=== PATIENT | female | born 1960 | race Hispanic/Latino ===

== ENCOUNTER → 2018-12-22 | Day surgery (SDC) | payer SELFPAY ==
[~2018-12-22] MED LIST: EPOETIN ALFA 10,000 UNIT/ML ONE
--- OUTSIDE RECORDS SUMMARY | 2018-12-22 09:10 | XMS REPORT ---
:1960 [facility] Address [address] [place] [address] Dr. Dalton [address] [place] [id number] Care Team Providers Name Role Phone Unavailable Unavailable Unavailable Problems This patient has no known problems. Allergies, Adverse Reactions, Alerts This patient has no known allergies or adverse reactions. Medications This patient has no known medications.
[2018-12-22 10:47] LABS: Ferritin 101.3 ng/mL (8-388); Folic Acid, (Folate) 8.8 ng/mL (3.1-17.5); Transferrin 178 mg/dL (200-360)
== END ==
LOC: DS 09:04
PROVIDERS: ATTEND Internal Medicine Nephrology
DX: N18.9 Chronic kidney disease, unspecified (principal); D63.1 Anemia in chronic kidney disease
CPT/HCPCS: 36415; 82607; 82728; 82746; 83540; 84466; 85014; 85018; 96372; J0885

== ENCOUNTER → 2019-02-16 | Day surgery (SDC) | payer SELFPAY ==
[~2019-02-16] MED LIST changes: +SOD FERRIC GLUC COMPLX/SUCROSE 250 MG in NA CHLORIDE 0.9% 250 ML IV ONE
--- OUTSIDE RECORDS SUMMARY | 2019-02-16 08:26 | XMS REPORT ---
:1960 [facility] Address [address] [place] [address] Dr. Dalton [address] [place] [id number] Care Team Providers Name Role Phone Unavailable Unavailable Unavailable Problems This patient has no known problems. Allergies, Adverse Reactions, Alerts This patient has no known allergies or adverse reactions. Medications This patient has no known medications.
[2019-02-16 08:41] LABS: Hematocrit 23.5 % (36.0-45.0)
== END ==
LOC: DS 08:00
PROVIDERS: ATTEND Internal Medicine Nephrology
DX: N18.9 Chronic kidney disease, unspecified (principal); D63.1 Anemia in chronic kidney disease
CPT/HCPCS: 36415; 85014; 85018; 96372; J0885; J2916

== ENCOUNTER 2021-01-29 10:06 | Emergency (ER) | payer OTHER ==
--- OUTSIDE RECORDS SUMMARY | 2021-01-29 10:10 | XMS REPORT | Continuity of Care Document ---
:1960 Author Organization [facility] t Address [address] [place] [address] Dr. Small. [address] [place] [address] Care Team Providers Name Role Phone Asked, Pcp Primary Care Physician Unavailable Jonathon MANNING Attending Clinician Unavailable Taylor RICCI Attending Clinician Colton WEBER Attending Clinician Sea Valladares DO Attending Clinician Jamir Gongora MD Attending Clinician Purvi WEBER V. Attending Clinician Provider Attending Clinician Unavailable Lamberto Ewing MD Attending Clinician David WEBER Attending Clinician COLTON Admitting Clinician Unavailable Payers Payer Name Policy Type Policy Effective Date Expiration Date Sour ce Number MEDICAREMEDICARE PART [id number] 2019 Jacobo Bhat AND 00:00:00 Yarsani [id number] 2018 [place] [facility]NA [facility] [id number] 2019 [place] [id number] 00:00:00 Met wallace 10[facility] Condition Condition Condition Status Onset Resolution Last Treating Co mments Source Name Details Category Date Date Treatment Clinician Date Esophageal Esophageal Disease Active 2019-10 [place] dysphagia dysphagia 0-26 Meth royal 00:00: st 00 Acute on Acute on Disease Active 2019-10 [place] chronic chronic 0-20 Methodi heart heart 00:00: st failure failure 00 with with preserved preserved ejection ejection fraction fraction (HFpEF) (HFpEF) ESRD (end ESRD (end Disease Active 2019-10 Nabeel torres stage stage 0-20 Methodi renal renal 00:00: st disease) disease) 00 HTN HTN Disease Active 2019-10 [place] (hypertens (hypertens 0-20 Me thodi ion) ion) 00:00: st 00 CHF CHF Disease Active 2019-10 [place] exacerbati exacerbati 0-20 Me thodi on on 00:00: st 00 Allergies, Adverse Reactions, Alerts Allergy Allergy Status Severity Reaction(s) Onset Inactive Treating Comm ents Source Name Type Date Date Clinician Lisinopr Propensi Active Hives 2019-10 [place] ty to 0-20 Methodi adverse 00:00: st reaction 00 s to drug Sulfa Propensi Active Other (See 2019-10 Patient Nabeel torres (Sulfona ty to Comments) 0-20 stated Metho di mide adverse 00:00: makes her st Antibiot reaction 00 really ics) s to sick drug Social History Social Habit Start Date Stop Date Quantity Comments Source Tobacco use and 2020-07-30 2020-07-30 Never used Rafal Rodriguez ethodist exposure 00:00:00 00:00:00 Alcohol intake 2020-07-30 2020-07-30 Current drinker Oscar on Yarsani 00:00:00 00:00:00 of alcohol (finding) Alcohol Comment 2020-07-29 2020-07-29 very little [place] Yarsani 00:00:00 00:00:00 Sex Ass[birth year] At [birth year] [facility] curlyodist 00:00:00 00:00:00 Smoking Status Start Date Stop Date Source Never smoker [place] Methodis t Medications Ordered Filled Start Stop Current Ordering Indication Dosage Frequency Signature Comments Components Source Medication Medication Date Date Medication? Clinician (SIG) Name Name amLODIPine 2019-10 Yes 10mg QD Take 10 mg [place] (NORVASC) 1-05 by mouth Method i 10 mg 14:04: daily. st tablet 21 calcium 2019-10 Yes 667mg Q.[id number] Take 667 [place] acetate,gavin 1-05 [id number] mg by M ethodi sphat bind, 14:04: 3D mouth 3 st (PHOSLO) 21 (three) 667 mg times a capsule day with meals. Replaced by Renvela furosemide 2019-10 Yes 80mg Q.5D Take 80 mg [place] (LASIX) 80 1-05 by mouth 2 Met hodi mg tablet 14:04: (two) st 21 times a day. metoprolol 2019-10 Yes 25mg Q.5D Take 25 mg [place] tartrate 1-05 by mouth 2 Metho di (LOPRESSOR) 14:04: (two) st 50 mg 21 times a tablet day. gabapentin 2019-10 Yes 100mg Q24H Take 100 [place] (NEURONTIN) 1-05 mg by Methodi 100 mg 14:04: mouth st capsule 21 daily as needed. aspirin 2019-10 Yes 81mg QD Take 81 mg [place] (ECOTRIN) 1-05 by mouth Method i 81 MG 14:04: daily. st enteric 21 coated tablet doxazosin 2019-10 Yes 4mg Q.5D Take 4 mg Nabeel ston (CARDURA) 4 1-05 by mouth 2 Me thodi MG tablet 14:04: (two) st 21 times a day. glimepiride 2019-10- No 1mg QD Take 1 Nabeel ston (AMARYL) 1 0- tablet (1 Met hodi MG tablet 00:00: 23:59 mg total) st 00 :00 by mouth daily with breakfast for 30 days. midodrine 2019-10- No 5mg Q.[id number] Take 1 [place] (PROAMATINE 0-31 - [id number] tablet (5 Methodi ) 5 MG 00:00: 23:59 3W mg total) st tablet 00 :00 by mouth 3 (three) times a week for 30 days. pantoprazol 2019-10 2020- No 40mg QD Take 1 Nabeel ston e 0-31 - tablet (40 Methodi (PROTONIX) 00:00: 23:59 mg total) s t 40 MG EC 00 :00 by mouth tablet daily for 30 days. atorvastati 2019-10 2020- No 40mg QD Take 1 Nabeel ston n (LIPITOR) 0-30 -29 tablet (40 M ethodi 40 mg 00:00: 23:59 mg total) st tablet 00 :00 by mouth nightly for 30 days. sevelamer 2019-10 2020- No 800mg Q.00507824 Take 1 [place] (RENVELA) 08-31 [id number] tablet M ethodi 800 mg 00:00: 23:59 3D ([address] tablet 00 :00 total) by mouth 3 (three) times a day with meals for 30 days. Vital Signs Vital Name Observation Time Observation Value Comments Source Heart rate 2020-08-01 15:47:00 75 /min Rafal Torres Respiratory rate 2020-08-01 15:47:00 18 /min Diane Torres Oxygen saturation in 2020-08-01 15:47:00 100 /min Rafal Torres Arterial blood by Pulse oximetry Systolic blood 2020-08-01 11:42:50 151 mm[Hg] Dianeto n Yarsani pressure Diastolic blood 2020-08-01 11:42:50 63 mm[Hg] Oscar on Yarsani pressure Body temperature 2020-08-01 11:42:50 37.28 Thalia Diane ton Yarsani Body weight 2020-08-01 05:21:26 75.206 kg Rafal Torres BMI 2020-08-01 05:21:26 27.59 kg/m2 Rafal Torres Body height 2020-07-24 08:16:00 165.1 cm Rafal Torres Procedures Procedure Date / Time Performing Source Performed Clinician POC GLUCOSE 2020-08-01 Jacquelyn Sawyer [place] 11:43:00 Sea Torres POC GLUCOSE 2020-08-01 Jacquelyn Sawyer [place] 07:23:00 Sea Torres BASIC METABOLIC PANEL 2020-08-01 Jacquelyn Sawyer [place] 02:55:00 Sea Torres ESTIMATED GFR 2020-08-01 Jacquelyn Sawyer [place] 02:55:00 Sea Torres POC GLUCOSE 2020-07-31 Sawyer Valladares [place] 17:23:00 Sea Torres HEMOGLOBIN A1C 2020-07-31 Jacquelyn Sawyer [place] 16:17:00 Sea Torres POC GLUCOSE 2020-07-31 Jacquelyn Sawyer [place] 11:56:00 Sea Torres POC GLUCOSE 2020-07-31 Jacquelyn Sawyer [place] 09:12:00 Sea Torres POC GLUCOSE 2020-07-30 Jacquelyn Sawyer [place] 21:01:00 Sea Torres POC GLUCOSE 2020-07-30 Jacquelyn Sawyer [place] 18:26:00 Sea Torres HEMODIALYSIS 2020-07-30 Zack Hamilton [place] 15:18:35 Yarsani NM GASTRIC EMPTYING 2020-07-30 TroyFannie [place] 14:10:01 Elizabeth R Yarsani POC GL[facility]COSE [facility]30 [facility] [place] 12[facility]32:00 Sea Yarsani XR CHEST 1 VW 2020-07-30 Sawyer Valladares [place] 09:09:08 Seawashington Torres US THORACENTESIS WITH IMAGING 2020-07-30 DevineSergio [place] 09:07:46 A. Yarsani CYTOLOGY (NON-GYNECOLOGICAL) 2020-07-30 Sawyer Valladares Nabeel ston REQUEST 08:45:00 Sea Yarsani BASIC METABOLIC PANEL 2020-07-30 [facility] [place] 04:54:00 Sea Yarsani ESTIMATED GFR 2020-07-30 [facility] [place] 04:54:00 Sea Yarsani POC GLUCOSE 2020-07-29 [facility], [facility] 21:00:00 Sea Yarsani POC GLUCOSE 2020-07-29 [facility] 17:55:00 Sea Yarsani POC GLUCOSE 2020-07-29 [facility] 14:52:00 Sea Yarsani SURGICAL PATHOLOGY REQUEST 2020-07-29 [facility]iaSawyer [facility] 14:22:00 Sea Yarsani POC GLUCOSE 2020-07-29 [facility] 14:02:00 Sea Yarsani ESOPHAGOGASTRODUODENOSCOPY (EGD) 2020-07-29 Prem Loja V. [place] 13:26:00 Yarsani POC PANEL 2020-07-29 [facility] [place] 13:21:00 Sea Yarsani POC GLUCOSE 2020-07-29 [facility] 09:07:00 Sea Yarsani BASIC METABOLIC PANEL 2020-07-29 [facility] 05:40:00 Yarsani ESTIMATED GFR 2020-07-[address] [facility] 05:40:00 Yarsani HC COMPLETE BLD COUNT W/AUTO DIFF 2020-07-29 Zully Nichole Ed [facility] 05:20:00 Yarsani POC GLUCOSE 2020-07-28 Lorna Segura [place] 21:19:00 Yarsani POC GLUCOSE 2020-07-28 Lorna Segura [place] 18:12:[address] CHEST WO CONTRAST 2020-07-28 Sergio Devine [place] 12:53:09 A. Yarsani POC GLUCOSE 2020-07-28 Lorna Seugra [place] 11:46:00 Yarsani HEMODIALYSIS 2020-07-28 Zack Hamilton [place] 09:31:26 Yarsani HC COMPLETE BLD COUNT W/AUTO DIFF 2020-07-28 [facility] 05:30:00 Yarsani BASIC METABOLIC PANEL 2020-07-28 [facility] 04:00:00 Yarsani ESTIMATED GFR 2020-07-28 [facility] 04:00:00 Yarsani POC GLUCOSE 2020-07-27 [facility] 21:26:00 Sea Yarsani POC GLUCOSE 2020-07-27 [facility] 17:30:00 Sea Yarsani [employer] CULTURE 2020-07-27 [facility] 15:46:00 A. Yarsani FUNGUS CULTURE 2020-07-27 [facility] 15:46:00 A. Yarsani CYTOLOGY (NON-GYNECOLOGICAL) 2020-07-27 Lorna Segurau ston REQUEST 15:42:00 Yarsani XR CHEST 1 VW 2020-07-27 Orlin Obrien [place] 14:55:00 Iftikhar Yarsani US THORACENTESIS WITH IMAGING 2020-07-27 [facility] 14:47:50 A. Yarsani GLUCOSE LEVEL, MISC FLUID 2020-07-27 [facility] ton 14:46:00 A. Yarsani LDH, MISC FLUID 2020-07-27 [facility] 14:46:00 A. Yarsani PROTEIN, MISC FLUID 2020-07-27 [facility] 14:46:00 A. Yarsani AEROBIC CULTURE 2020-07-27 [facility] 14:46:00 A. Yarsani ANAEROBIC CULTURE 2020-07-27 [facility] 14:46:00 [employer]. [employer] STAIN 2020-07-27 [facility] 14:46:00 A. Yarsani GRAM STAIN 2020-07-27 [facility] 14:46:00 A. Yarsani POC GLUCOSE 2020-07-27 [facility] 12:12:00 Sea Yarsani POC GLUCOSE 2020-07-27 [facility] 07:43:00 Sea Yarsani BASIC METABOLIC PANEL 2020-07-27 [facility] 03:11:00 Yarsani ESTIMATED GFR 2020-07-27 Ruocco, Dulce [place] 03:11:00 Yarsani HC COMPLETE BLD COUNT W/AUTO DIFF 2020-07-27 Ruocco, Dulce [place] 02:55:00 Yarsani POC GLUCOSE 2020-07-26 McCkameron, Sawyer [place] 21:04:00 Sea Yarsani POC GLUCOSE 2020-07-26 McCkameron, Sawyer [place] 17:54:00 Sea Yarsani XR CHEST 1 VW PORTABLE 2020-07-26 Ruocco, Dulce [place] 16:45:10 Yarsani POC GLUCOSE 2020-07-26 McCartan, Sawyer [place] 12:55:00 Sea Yarsani POC GLUCOSE 2020-07-26 McCartan, Sawyer [place] 08:42:00 Sea Yarsani POC GLUCOSE 2020-07-26 McCartan, Sawyer [place] 07:45:00 Sea Yarsani BASIC METABOLIC PANEL 2020-07-26 Ruocco, Dulce [place] 03:05:00 Yarsani PHOSPHORUS LEVEL 2020-07-26 Alfonso, Zack Carter [place] 03:05:00 Yarsani ESTIMATED GFR 2020-07-26 Ruocco, Dulce [place] 03:05:00 Yarsani HC COMPLETE BLD COUNT W/AUTO DIFF 2020-07-26 Ruocco, Dulce [place] 02:48:00 Yarsani POC GLUCOSE 2020-07-25 McCkameron, Sawyer [place] 17:49:00 Sea Yarsani HEMODIALYSIS 2020-07-25 Alfonso, Zack Carter [place] 16:50:39 Yarsani FL ESOPHAGRAM SINGLE CONTRAST 2020-07-25 Jacobo Whitten 15:16:58 Megha Kennedy Yarsani POC GLUCOSE 2020-07-25 McCkameron, Sawyer [place] 11:56:00 Sea Yarsani POC GLUCOSE 2020-07-25 McCartan, Sawyer [place] 07:23:00 Sea Yarsani BASIC METABOLIC PANEL 2020-07-25 [facility]u [facility], Sawyer [place] 03:33:00 Sea Yarsani ESTIMATED GFR 2020-07-25 Sylwiaartan, Sawyer [place] 03:33:00 Sea Yarsani POC GLUCOSE 2020-07-24 McCartan, Sawyer [place] 21:15:00 Sea Yarsani POC GLUCOSE 2020-07-24 McCkameron, Sawyer [place] 17:39:00 Sea Yarsani POC GLUCOSE 2020-07-24 McCartan, Sawyer [place] 12:09:00 Sea Yarsani CV STRESS TEST NUCLEAR CARDIO 2020-07-24 PapiAdriana gamble 10:34:38 Lamberto Torres NM MYOCARDIAL PERFUSION STRESS 2020-07-24 Papi Adriana Anisa ren ONLY 10:34:38 Lamberto Torres POC GLUCOSE 2020-07-24 Sawyer Valladares [place] 07:48:00 Sea Yarsani HEMODIALYSIS 2020-07-24 Alfonso, Zack Raul [place] 07:21:50 Yarsani HC COMPLETE BLD COUNT W/AUTO DIFF 2020-07-24 Sylwianyu [facility] [place] 04:40:00 Sea Yarsani BASIC METABOLIC PANEL 2020-07-24 [facility], Sawyer [place] 04:00:00 Sea Yarsani ESTIMATED GFR 2020-07-24 [facility], [facility] 04:00:00 Sea Yarsani POC GLUCOSE 2020-07-23 [facility], [facility] 20:42:00 Sea Yarsani POC GLUCOSE 2020-07-23 [facility], [facility] 17:54:00 Sea Yarsani HEPATITIS B SURFACE ANTIGEN 2020-07-23 Alfonso, Zack mcclure 13:30:00 Yarsani POC GLUCOSE 2020-07-23 [facility], Sawyer [place] 12:00:00 Sea Yarsani [employer] C[employer]URE 2020-07-23 Ellison, Radha [place] 10:40:00 Yarsani FUNGUS CULTURE 2020-07-23 Ellison, Radha [place] 10:40:00 Yarsani XR CHEST 1 VW 2020-07-23 Sim, Nichole [place] 10:30:00 Neelima Yarsani US THORACENTESIS WITH IMAGING 2020-07-23 Ellison, Radha [facility] 10:11:00 Yarsani ANAEROBIC CULTURE 2020-07-23 Ellison, Radha [place] 09:40:00 Yarsani AEROBIC CULTURE 2020-07-23 Ellison, Radha [place] 09:40:00 Yarsani [employer] STAIN 2020-07-23 Ellison, Radha [place] 09:40:00 Yarsani FUNGUS SMEAR 2020-07-23 Ellison, Radha [place] 09:40:00 Yarsani ULTRAFILTRATION 2020-07-23 Alfonso, Zack Carter [place] 09:22:41 Yarsani HC COMPLETE BLD COUNT W/AUTO DIFF 2020-07-23 Zonia Ratliff [place] 04:50:00 Samantha Yarsani BASIC METABOLIC PANEL 2020-07-23 Yen Ratliff [place] 04:00:00 Samantha Torres MAGNESIUM LEVEL 2020-07-23 Yen Ratliff [place] 04:00:00 Samantha Torres ESTIMATED GFR 2020-07-23 Yen Ratliff [place] 04:00:00 Samantha Torres POC GLUCOSE 2020-07[facility] 21:34:00 Yarsani ECG 12-LEAD 2020-07-22 EllisonRadha wong [place] 19:23:38 Yarsani ALT (SGPT) 2020-07-22 [facility] 18:47:00 Yarsani ALKALINE PHOSPHATASE 2020-07-22 [facility] 18:47:00 Yarsani POTASSIUM LEVEL 2020-07-22 [facility] 18:47:00 Yarsani AST (SGOT) 2020-07-22 [facility] 18:47:00 Yarsani XR CHEST 1 VW PORTABLE 2020-07-22 [facility] 18:01:00 Yarsani POC GLUCOSE 2020-07-22 [facility] 17:42:00 Yarsani COVID-19 QUALITATIVE PCR 2020-07-22 [facility] [place] 17:01:00 Sea Yarsani HC COMPLETE BLD COUNT W/AUTO DIFF 2020-07-22 EllisonRadha [place] 17:00:00 Yarsani COMPREHENSIVE METABOLIC PANEL 2020-07-22 [facility] 17:00:00 Yarsani PROTHROMBIN TIME WITH INR 2020-07-22 [facility] 17:00:00 Yarsani ESTIMATED GFR 2020-07-22 EllisonRadha wong [place] 17:00:00 Yarsani B NATRIURETIC PEPTIDE 2020-07-22 EllisonRadha wong [place] 17:00:00 Yarsani Plan of Care Planned Activity Planned Date Details Comments Source Future Scheduled 2023-07-30 Screening for [facility] thodist Test 00:00:00 malignant neoplasm of cervix (procedure) [code = 451651086] Future Scheduled 2021-05-03 INFLUENZA VACCINE Temo pagan Yarsani Test 00:00:00 [code = INFLUENZA VACCINE] Future Scheduled 2010 BREAST CANCER [place] Me thodist Test 00:00:00 SCREENING [code = BREAST CANCER SCREENING] Future Scheduled 2010 COLONOSCOPY SCREENING [place] Yarsani Test 00:00:00 [code = COLONOSCOPY SCREENING] Future Scheduled 2010 SHINGLES VACCINES [place] Yarsani Test 00:00:00 (#1) [code = SHINGLES VACCINES (#1)] Future Scheduled 1978 Hepatitis C screening [place] Yarsani Test 00:00:00 (procedure) [code = 754070955] Future Scheduled 1976 COVID-19 VACCINE (1) Nabeel ston Yarsani Test 00:00:00 [code = COVID-19 VACCINE (1)] Future Scheduled 1970 DIABETES: RETINAL EYE [place] Yarsani Test 00:00:00 EXAM [code = DIABETES: RETINAL EYE EXAM] Future Scheduled 1970 DIABETIC FOOT EXAM [place] Yarsani Test 00:00:00 [code = DIABETIC FOOT EXAM] Encounters Start End Encounter Admission Attending Care Care Encounter Source Date/Time Date/Time Type Type Clinicians Facility Department ID 2020-08-07 2020-08-07 Outpatient DELAFLOR-SA [facility] [id number] [place] 00:00:00 00:00:00 NTAANA, 542 Method i CRISTÓBAL 2020-07-22 2020-08-01 Inpatient MCCARTAN, [facility] [id number] [place] 00:00:00 00:00:[address] 2020-04-24 2020-04-24 Office David [facility] [id number] 13:04:48 13:52:13 Visit Elva Paez [id number] Yue [id number] Annalee [id number] [address] Results Test Description Test Time Test Comments Results Result Sourc e Comments US [facility] Results Metho dist 17:16:54 - 07/30/2020 5:20 PM CDT EXAMINATION : US THORACENTESIS WITH IMAGINGCLINICAL HISTORY: Pleural fluidCOMPARISON:Thor acentesis ultrasound dated 07/27/2020TECHNIQUE: The procedure's risks, benefits, and alternatives were discussed with the patient and written, informed consent was obtained.Using ultrasound guidance, the right pleural effusion was localized and the overlying posterior chest was prepped and draped in the usual sterile fashion. 1% buffered lidocaine was used for local anesthesia. A 5 Lao One-step catheter was inserted into the pleural space and 1.1 L of pleural fluid was removed. Post procedure images reveal a small residual effusion. The patient tolerated the procedure without difficulty and was discharged to the radiology recovery area for postprocedure chest x-ray prior to discharge.EBL: None. COMPLICATIONS: None.SPECIMENS: As above.Attending: Dr. Caesar Alva IMPRESSION:Technical ly successful ultrasound-guided right-sided therapeutic thoracentesis.[facility]-2U [id number] and approved by surgeon/president/fellow: Jonathan Theodore M.D.I, Caesar Alva M.D., personally reviewed the images and resident's/fellow's findings and agree with the final report. Cytology (non-gynecological) request 2020-07-30 17:07:31 Test Item Value Reference Range Interpretation Comme nts Case number (test code = [id number]) [id number] Cytology (non-gynecological) report See link below for PDF Lab Repo rt (test code = 1178) Result status (test code = 6244805) This is Final Report for [id number] [facility] Gastric [id number] 16:40:51Hm Interface, Radiology Results 07/30/2020 4:43 PM CDTFormatting of this note might be di fferent from the original.PROCEDURE: NM GASTRIC EMPTYINGINDICATION: suspected gastroparesis. TECHNIQUE: 0.5 millicuries of [id number] colloid were mixed with an egg and cooked. The egg was fed to the patient and dynamic imaging of the abdomen in the anterior and posterior projections was performedfor 90 minutes. Quantification of gastric emptying was performed using the geometric mean of the anterior and posterior projections. Delayed imaging at 4 hours was also performed. FINDINGS: The half-time of emptying is greater than 1000 minutes. Normal is 45 to 100 minutes. There is greater than 75% gastric retention on delayed 4 hour images. IMPRESSION: Markedly delayed gastric emptying, compatible with gastroparesis.[facility]-[id number] and approved by surgeon/president/fellow: Pato Love M.D.I, Jose De Dios MD, personally reviewed the images and resident's/fellow's findings and agree with the final report.[facility] [id number] 13:21:04 Test Item Value Reference Range Interpretation Comments Case number (test code = [id number]) Surgical pathology See link below for report (test code = PDF Lab Report [id number]) Result status (test code This is Final Report = [id number]) for [id number] [place] MethodistXR Chest 1 [id number] 09:11:50Hm Interface, Radiology Results - 07/30/2020 9:14 AM CDT EXAMINATION: XR CHEST 1 VWCLINICAL HISTORY: post thoraCOMPARISON: 07/27/2020IMPRESSION:A frontal radiograph of the chest is reviewed. The cardiomediastinal silhouette is unchanged. A small right-sided pleural effusion has diminished in size following right-sided thoracentesis with improved aeration in the right perihilar region and right lung base. No pneumothorax is present. Left lung remains clear. A right chest tunneled dialysis catheter is unchanged.[id number] MethodistCT Chest Wo [id number] 13:40:17Hm Interface, Radiology Results - 07/28/2020 1:43 PM CDT EXAMINATION: CT CHEST WO CONTRASTCLINICAL HISTORY: plerual fluid trapped lungTECHNIQUE: Axial images of the chest were obtained without intravenous contrast. The lack of intravenous contrast reduces the sensitivity of the exam and evaluating vasculature. CT imaging was performed with iterative reconstruction technique and/or automated exposure control to reduce radiation dose.COMPARISON: Limited comparison with chest radiograph performed July 27, 2020FINDINGS:Lungsand airways: A 10 mm solid noncalcified pulmonary nodule is present in the right lower lobe (image 74 series 2). Multifocal atelectasis, greatest in the peripheral and basilar right lung. Difficult to exclude a component of airspace disease in the right lung base. Pleura: Moderate, partially loculatedright pleural effusion. Trace posterior left pleural fluid.Mediastinum and lymph nodes: No lymphadenopathy. Cardiovascular: Right jugular approach venous catheter tip terminates in the right atrium. Heavy coronary artery and additional scattered vascular calcifications, including aortic valve leaflet calcifications. The main pulmonary artery is dilated to 3.9 cm. Left heart chambers are mildly enlarged.Upper abdomen: Colonic diverticula.Musculoskeletal: Scattered degenerative osseous changes. Deminer alized bones.IMPRESSION:1.There is an indeterminate solid noncalcified pulmonary nodule measuring 10mm in the right lower lobe. Recommend PET/CT, tissue sampling, or repeat chest CT in 3 months.2.Moderate, partially loculated right pleural effusion with adjacent atelectasis. It is difficult to exclude a component of superimposed aspiration/pneumonia in the right lung base.3.Heavy coronary artery andadditional scattered vascular calcifications.4.Dilated main pulmonary artery (3.9 cm), which can be seen in but is not specific for pulmonary hypertension.[id number]-[id number] MethodistXR Chest 1 Vw Portable 2020-07-26 20:30:37Hm Interface, Radiology Results 07/26/2020 8:33 PM CDT XR CHEST 1 VW PORTABLECLINICAL INDICATION: Pleural effusionCOMPARISON: IMPRESSION:The heart is mildly enlarged and mediastinal contours appear stable. A right dialysis catheter is present with tips projecting over the right atrium. Elevation of the right hemidiaphragm/volume loss is noted as before with a now small to moderate right-sided pleural effusion with basilar atelectasis. The effusion has decreased in the interval. Left lung is clear. Bones are unchanged.*[facility]-[id number] MethodistFL Esophagram Single Contrast 2020-07-25 15:23:52Hm Interface, Radiology Results 07/25/2020 3:26 PM CDT EXAMINATION: FL ESOPHAGRAM SINGLE CONTRASTCLINICAL HISTORY: Dysphagia known causeCOMPARISON: None.Fluoroscopy time: Less than 1 minute. Dose equals 3 mGyFINDINGS: Marked decrease in esophageal motility was noted. Tertiary contractions involving the lower thoracic esophagus were present. There was no evidence of hiatal hernia noted during the course of study. There was noevidence of reflux noted during the course of study.IMPRESSION:Decreased esophageal motility.[id number] nursery for blind babies MethodistCv stress [id number] 07:51:03 Test Item Value Reference Range Interpretation Comments Resting HR (test code 68 = [id number]) Resting BP (test code 143&65 = [id number]) Peak MET Achieved 1 (test code = [id number]) Protocol Name (test REGADENO code = 8218944773) Time in Exercise 00:01:00 Phase (test code = 7300921251) Max Systolic BP (test 143 code = 5843663551) Max Diastolic BP 65 (test code = 6942521020) Max Heart Rate (test 77 code = 7948178718) Max Predicted Heart 161 Rate (test code = 2870601840) Target HR Formula (220 - Age)*100% (test code = 6944236008) Test Indication (test CAD RISK,HIGH code = 9125535580) ASYMPTOMATIC Arrhy During Ex (test code = 4115128786) ECG Interp Before EX (test code = 9733873492) ECG Interp During Ex (test code = 7988417082) Ex Summary Comment (test code = 1202202799) Overall HR Response to Exercise (test code = 8038959607) Overall BP Response To Exercise (test code = 8147015849) Reason for Protocol Complete Termination (test code = 2204952572) Stress Test Waveform interpreted in Impression (test code report associated with = 8277665154) image study. No interpretation is provided as part of this Stress ECG report.-- [facility] myocardial [id number] 11:49:00Interface, Radiology Results In - 07/24/2020 11:50 AM CDTFormatting of this note might be different f rom the original. [facility] Heart & Vascular Nuclear Cardiology Department [address] [place] [address] Myocardial Perfusion Imaging Report Pat.Name: SUZANNE MAIER Sunita.ID: [id number] St.Date: 07/24/2020 Refer.MD: ADRIANA EWING MD Exam Time: 8:54:00 AM Study Type:Myocardial Perfusion ImagingHeight: 65in Weight: 170lb BSA: 1.85 m2 Age: 11 1960,59Y Sex: FEMALE BP: 143/65 HR: 67 bpm Nuclear Tech:Debbie Collins [facility],JUNITO/Vignesh Villalta [facility], ARRTPat. Stat.:Inpatient Room: D 914A Tape Vol: 29.17, Nuclear Event ID:[id number] Order ID: [id number] Reason for Study:CAD risk, High, AsymptomaticHistory / Clinical:Congestive heart failure, Diabetes, Family historyCAD, Hypertension, Renal insufficiency/failure, DVT, Recent rightpleural effusion, Thoracentesis - 07/23/20, Peripheral vascular stentin leg (2017)Procedures: Low Dose Stress Only Single-Photon Emission ComputedTomographyRisk Factors:Diabetes, Hypertension, Family history of cardiovasculardiseaseClinical Symptoms:Regadenoson 0.4 mg administered intravenously over10 secondsPhysical Exam:S1, S2 ----SUMMARY: SCINTIGRAPHIC RESULTSPerfusion Defect Size (% LV) 0 % Total 0 % Ischemia 0 % ScarLeft Ventricular Perfusion ResultsThere is normal tracer distribution throughout the myocardium duringstress. Gated SPECT ResultsThe post-stress left ventricular ejection fra ction is 66 % with normalregional wall motion and left ventricular thickening. Leftventricular end-diastolic volume is 92 ml; end-systolic volume is 31ml. The left ventricle is of normal size at stress. ConclusionNormal regadenoson Tc-99m tetrofosmin myocardial perfusion study. Theleft ventricular ejection fraction is normal. __ CommentsPatients with a normal stress myocardial perfusion study have a low (<1%) annual risk of cardiac or nonfatal myocardial infarction. Study Quality/ArtifactsThe study quality is good.The mild reduction in anteroapical wallcounts is probably due to breastattenuation artifact rather thancoronary artery disease. Comparison to Previous StudyNone available. FINDINGS: STRESS: Baseline Vital Signs: Intervention Regadenoson 0.4mg/5mlIV over 10 seconds followed by radiotracer injection and 5ml salineflushBaseline EKG Normal Sinus Rhythm, First degree AV blockResting HR: 67 Atropine Administered: 0Resting BP: 143/65 Stress Test Results:Target HR: 137 Symptoms and Complications:Stress-induced Arrhythmias NoneReason for Stopping Test: As per Regadenoson protocolSymptoms During Test Shortness of breath, Chest heavinessComplications NoneOther:Normal heart rate response to pharmacological stress,Normal blood pressure response to pharmacological stressECG / Stress Interpretation: No ischemic ST segment change occurredwith stress.Signed 07/24/2020 11:49 Mich Fischer [facility] 12 lead 2020-07-23 23:31:48 Test Item Value Reference Range Interpretation Comments Ventricular rate (test 79 code = 253) Atrial rate (test code = 79 255) KS interval (test code = 200 266) QRSD interval (test code 82 = 260) QT interval (test code = 384 264) QTC interval (test code 440 = 265) QRS axis 1 (test code = 20 268) T wave axis (test code = 99 270) EKG impression (test Normal sinus code = 273) rhythm-Cannot rule out Anterior infarct , age undetermined-Abnormal ECG-No previous ECGs available-Electronica lly Signed By Diana Kelly ([id number]) on 07/23/2020 11:31:41 PM Rafal Torres
--- NOTE | 2021-01-29 10:32 | EDPHYS ---
Physician Documentation [facility] Name: Enma Bolden Age: 60 yrs Sex: Female : 1960 Arrival Date: 01/29/2021 Time: 10:08 Bed 5 Private MD: ED Physician Nicolas Tolliver HPI: 01/29 11:25 This 60 yrs old Female presents to ER via Ambulatory with complaints of kb Dialysis Catheter Problem. 11:25 The patient has a dialysis catheter in the right subclavian area. Type of problem: kb broken clamp. Onset: The symptoms/episode began/occurred this morning. The malfunction was discovered at the dialysis center. Dialysis schedule: . Associated signs and symptoms: Pertinent positives: None. The patient has not experienced similar symptoms in the past. The patient has not recently seen a physician. Pt reports she completed dialysis and when they were getting her ready to leave one of the clamps on her catheter broke.. Historical: - Allergies: 10:21 Sulfa (Sulfonamide Antibiotics); ss 10:21 Lisinopril; ss - PMHx: 10:21 Dialysis; ss - Immunization history:: Adult Immunizations up to date. - Social history:: Smoking status: Patient denies any tobacco usage or history of. ROS: 11:24 Constitutional: Negative for fever, chills, and weight loss, Cardiovascular: Negative kb for chest pain, palpitations, and edema, Respiratory: Negative for shortness of breath, cough, wheezing, and pleuritic chest pain, MS/Extremity: Negative for injury and deformity, Skin: Negative for injury, rash, and discoloration, Neuro: Negative for headache, weakness, numbness, tingling, and seizure. Exam: 11:24 Constitutional: This is a well developed, well nourished patient who is awake, alert, kb and in no acute distress. Head/Face: Normocephalic, atraumatic. Respiratory: Respirations even and unlabored. No increased work of breathing, no retractions or nasal flaring. Skin: Warm, dry with normal turgor. Normal color. MS/ Extremity: Pulses equal, no cyanosis. Neurovascular intact. Full, normal range of motion. Neuro: Awake and alert, GCS 15, oriented to person, place, time, and situation. Moves all extremities. Normal gait. Vital Signs: 10:16 Pulse 77; Resp 15; Temp 97.4(TE); Pulse Ox 98% on R/A; Weight 81 kg; Pain 0/10; ss MDM: 10:17 Patient medically screened. kb 11:23 Data reviewed: vital signs, nurses notes. Data interpreted: Pulse oximetry: on room air kb is 98 %. Interpretation: normal. Counseling: I had a detailed discussion with the patient and/or guardian regarding: the historical points, exam findings, and any diagnostic results supporting the discharge/admit diagnosis, the need for outpatient follow up, a family practitioner, to return to the emergency department if symptoms worsen or persist or if there are any questions or concerns that arise at home. 11:24 ED course: new clamp applied to dialysis catheter. Pt will follow up with Dr Herndon. kb Administered Medications: No medications were administered Disposition: 14:25 Co-signature as Attending Physician, Nicolas Tolliver MD I agree with the assessment and kdr plan of care. Disposition: 01/29/21 10:32 Discharged to Home. Impression: Encounter for new clamp on dialysis catheter. - Condition is Stable. - Discharge Instructions: Dialysis Vascular Access Malfunction. - Medication Reconciliation Form, Thank You Letter, Antibiotic Education, Prescription Opioid Use form. - Follow up: Emergency Department; When: As needed; Reason: Worsening of condition. Follow up: Private Physician; When: 2 - 3 days; Reason: Recheck today's complaints, Continuance of care, Re-evaluation by your physician. Signatures: Sdaa Stark FNP-C FNP-Kathy Anthony RN RN Nicolas Cantu MD MD [facility] Melinda Monteiro RN RN ss Corrections: (The following items were deleted from the chart) 10:37 10:32 01/29/2021 10:32 Discharged to Home. Impression: Encounter for new clamp on sv dialysis catheter. Condition is Stable. Forms are Medication Reconciliation Form, Thank You Letter, Antibiotic Education, Prescription Opioid Use. Follow up: Emergency Department; When: As needed; Reason: Worsening of condition. Follow up: Private Physician; When: 2 - 3 days; Reason: Recheck today's complaints, Continuance of care, Re-evaluation by your physician. kb
--- NOTE | 2021-01-29 10:32 | ER ---
Nurse's Notes [facility] Name: Enma Bolden Age: 60 yrs Sex: Female : 1960 Arrival Date: 01/29/2021 Time: 10:08 Bed 5 Private MD: Diagnosis: Encounter for new clamp on dialysis catheter Presentation: 01/29 10:16 Chief complaint: Patient states: "After I finished my dialysis she was disconnecting me ss and my catheter just snapped and they told me to come here." No bleeding noted. Clamp noted to [place]. Coronavirus screen: Client denies travel out of the [place] in the last 14 days. Ebola Screen: Patient denies exposure to infectious person. Patient denies travel to an Ebola-affected area in the 21 days before illness onset. Initial Sepsis Screen: Does the patient meet any 2 criteria? No. Patient's initial sepsis screen is negative. Does the patient have a suspected source of infection? No. Patient's initial sepsis screen is negative. Risk Assessment: Do you want to hurt yourself or someone else? Patient reports no desire to harm self or others. Onset of symptoms was January 29, 2021. 10:16 Method Of Arrival: Ambulatory ss 10:16 Acuity: JOSE 5 ss Historical: - Allergies: 10:21 Sulfa (Sulfonamide Antibiotics); ss 10:21 Lisinopril; ss - PMHx: 10:21 Dialysis; ss - Immunization history:: Adult Immunizations up to date. - Social history:: Smoking status: Patient denies any tobacco usage or history of. Screenin:21 Abuse screen: Denies threats or abuse. Denies injuries from another. Nutritional sv screening: No deficits noted. Tuberculosis screening: No symptoms or risk factors identified. Fall Risk None identified. Assessment: 10:20 General: Appears in no apparent distress. comfortable, well developed, Behavior is sv calm, cooperative, appropriate for age. Pain: Denies pain. Neuro: Level of Consciousness is awake, alert, obeys commands, Oriented to person, place, time, situation, Gait is steady. Respiratory: Respiratory effort is even, unlabored. Derm: Skin is pink, warm \\T\\ dry. 10:25 Reassessment: Clamp replaced on pt's dialysis catheter. sv 10:31 Reassessment: Patient appears in no apparent distress at this time. No changes from sv previously documented assessment. Patient and/or family updated on plan of care and expected duration. Pain level reassessed. Patient is alert, oriented x 3, equal unlabored respirations, skin warm/dry/pink. Vital Signs: 10:16 Pulse 77; Resp 15; Temp 97.4(TE); Pulse Ox 98% on R/A; Weight 81 kg; Pain 0/10; ss ED Course: 10:08 Patient arrived in ED. ds1 10:17 [facility]ada Stark [facility]C [facility]. kb 10:17 Nicolas Tolliver MD is Attending Physician. kb 10:20 Triage completed. ss 10:21 Kathy Ramos, RN is Primary Nurse. sv 10:21 Arm band placed on. sv 10:21 Patient has correct armband on for positive identification. Bed in low position. Call sv light in reach. Pulse ox on. NIBP on. Door closed. Head of bed elevated. 10:22 Nurse Practitioner and/or Physician [employer] to see patient. sv 10:31 No provider procedures requiring assistance completed. Patient did not have IV access sv during this emergency room visit. Administered Medications: No medications were administered Outcome: 10:32 Discharge ordered by MD. kb 10:37 Discharged to home ambulatory. sv 10:37 Condition: stable 10:37 Discharge instructions given to patient, Instructed on discharge instructions, follow up and referral plans. Demonstrated understanding of instructions, follow-up care. 10:37 Patient left the ED. sv Signatures: Sada Stark FNP-C FNP-Richieb Kathy Ramos, RN NIGEL Ami Pedroza ds1 Melinda Monteiro RN RN
[2021-01-29 10:43] VITALS: TEMP 97.4; O2SAT 98
== END 2021-01-29 10:37 | disposition home or self-care (01) ==
LOC: ER 10:06
DX: T82.49XA Other complication of vascular dialysis catheter, initial encounter (principal)
CPT/HCPCS: 99283

== ENCOUNTER 2021-02-20 07:16 | Day surgery (SDC) | payer OTHER ==
[2021-02-18 10:40] LABS: Potassium 4.6 mmol/L (3.5-5.1)
[2021-02-20] MEDS ORDERED: CEFAZOLIN/SWI 1gm 1 GM/10 ML SYR ONE (08:37)
[2021-02-20] MEDS ORDERED: Ringers Lactate 1,000 ML IV ONE (08:37)
[2021-02-20] MEDS ORDERED: BUPIVACAINE 0.25% PF 30 ML VIAL ONE (08:58)
[2021-02-20] MEDS ORDERED: NA CHLORIDE 0.9% 500 ML ONE (08:58)
--- NOTE | 2021-02-20 09:33 | P.OP ---
Preoperative diagnosis: End Stage Renal Disease Postoperative diagnosis: End Stage Renal Disease Primary procedure: Laparoscopic Peritoneal Dialysis Catheter Placement Secondary procedure: Laparoscopic Adhesiolysis > 30 min Anesthesia: GETA + Local Estimated blood loss: <1cc Specimen: none Findings: intra-abdominal adhesions to midline, omentum, small bowel Complications: None Implants: [place] Standard Double Cuffed Peritoneal Dialysis Catheter Fluids & blood products: Transferred to: Recovery Room Condition: Good
[2021-02-20] MEDS: HYDROMORPHONE HCL 1 MG/ML INJ ONE ×3 (10:02→10:08)
--- NOTE | 2021-02-20 10:32 | OP ---
Date of Procedure: 02/20/2021 Surgeon: Axel Chaney MD, Brief History Of Present Illness: The patient is a 60-year-old female, who has end-stage renal disea se, currently receiving hemodialysis, who opted for peritoneal dialysis catheter placement. She has had abdominal surgeries before in the past. Preoperative Diagnosis: End-stage renal disease. Postoperative Diagnosis: End-stage renal disease. Procedures Performed: 1.A laparoscopic peritoneal dialysis catheter placement. 2.Laparoscopic adhesiolysis greater than 30 minutes. Anesthesia: General endotracheal plus local with 0.25% Marcaine. Estimated Blood Loss: Less than 1 mL. Specimen: None. Findings: Intraabdominal adhesions to the midline omentum and small bowel were stuck to the anterior abdominal wall requiring adhesiolysis for greater than 30 minutes. Complications: None. Implants: [employer] standard double cuffed peritoneal dialysis catheter. Disposition: The patient was transferred to recovery room in good condition. Procedure In Detail: After informed consent was obtained, the patient was brought to the operating r oom, prepped and draped in the usual sterile fashion. After adequate anesthesia was achieved, a left lower quadrant area was anesthetized with 0.25% Marcaine and sharply incised. A 5 mm 0-degree optic al trocar was introduced in the abdomen without evidence of complication. Insufflation was obtained to 15 mmHg at this time. There were noted omental attachments and small bowel attachments to the ant erior abdominal wall precluding safe placement of the peritoneal dialysis catheter at this point. As such, an additional left lower quadrant trocar site was placed using a 5 mm trocar under direct visu alization without evidence of complication. The LigaSure device was used to take down the omentum an d small bowel using a combination of sharp, blunt, and LigaSure bipolar dissection to remove the omen libby and small bowel of the anterior surface. The small bowel had small alveolar adhesions. It was e asy to remove without any enterotomies. After this, the omentum and the small bowel were taken off t he anterior abdominal wall. The abdominal wall was clear and clean at this point making placement op timal. At this point, I had pre-stenciled the patient for placement of the peritoneal dialysis vladimir ter with the right access site. At this point, I anesthetized the skin overlying the premarked areas and made incision over the right rectus muscle. Introducer sheath was placed at a 45-degree angle t oward the patient's coccyx and the introducer sheath left in place. At this point, a dilatation was performed and the standard cuffed catheter was placed in through the introducer sheath and introducer sheath removed. The first cuff was placed into the rectus muscle at this point. I then made a coun ter incision on the exit site on the right abdominal wall and used the tunneling device to bring the catheter through this access site without evidence of complication. I then placed the cap on the end and test of the catheter was found to be in good anatomic position with cool to the right. There we re no kinks and twists. The fluid was flushed and withdrawn quite easily under visualization and the procedure was complete at this point. The abdomen was then completely desufflated under direct visu alization without evidence of complication. All trocars were removed. All skin incisions were copio usly irrigated and closed with 4-0 Monocryl in a running fashion. Dermabond placed over top. The pa tient tolerated the procedure well without evidence of complication and transferred to PACU in good c ondition. All counts were correct at the end of the case. TK/MODL Voice ID: [id number] Report ID: [id number]
[2021-02-20 10:37] VITALS: TEMP 97
[2021-02-20] MEDS ORDERED: CODEINE 30MG/APAP 300MG TAB ONE (12:08)
[2021-02-20 13:33] VITALS: BP 157/56; O2SAT 97
== END 2021-02-20 12:45 | disposition home or self-care (01) ==
LOC: PRE 07:16
PROVIDERS: ATTEND Surgery
PROC: 0WHG43Z Insertion of Infusion Device into Peritoneal Cavity, Percutaneous Endoscopic Approach (ICD-10-PCS; principal; 2021-02-20 08:30)
DX: N18.6 End stage renal disease (principal); Z20.822 Contact with and (suspected) exposure to COVID-19
CPT/HCPCS: 80048; 36415; 82947; 49324; U0003; J1170; J0690; J7120; J7040

== ENCOUNTER 2021-02-27 05:23 | Emergency (ER) | payer OTHER ==
--- OUTSIDE RECORDS SUMMARY | 2021-02-27 05:27 | XMS REPORT | Continuity of Care Document ---
:[address] [facility] t Address [address] [place] [address] Dr. Small. [address] [place] [address] Care Team Providers Name Role Phone Asked, [...] Expiration Date Sour ce Number MEDICAREMEDICARE PART [id number] 2019 Jacobo Bhat AND 00:00:00 Taoist [id number] 2018 [place] [facility] [id number] 2019 Donnelly [id number]/ 00:00:00 Met wallace 10/2019[facility] ial Problems Condition Condition Condition Status [...] disease) 00 HTN HTN Disease Active 2019-10 Donnelly (hypertens (hypertens 0-20 Me thodi ion) ion) 00:00: st 00 CHF CHF Disease Active 2019-10 Donnelly exacerbati exacerbati 0-20 Me thodi on on [...] intake 2020-07-30 2020-07-30 Current drinker Oscar on Taoist 00:00:00 00:00:00 of alcohol (finding) Alcohol Comment 2020-07-29 2020-07-29 very little Donnelly Taoist 00:00:00 00:00:00 Sex [birth year] [facility] curlyodist 00:00:00 00:00:00 Smoking Status Start Date Stop Date Source Never smoker Donnelly Methodis t Medications Ordered Filled Start Stop Current Ordering Indication Dosage Frequency Signature Comments Components Source Medication Medication Date Date Medication? Clinician (SIG) Name Name amLODIPine 2019-10 Yes 10mg QD Take 10 mg [place] (NORVASC) 1-05 by mouth Method i 10 mg 14:04: daily. st tablet 21 calcium 2019-10 Yes 667mg Q.[id number] Take 667 Lyles acetate,gavin 1-05 [id number] mg by M ethodi sphat bind, 14:04: [...] for 30 days. midodrine 2019-10- No 5mg Q.[id number] Take 1 Donnelly (PROAMATINE 0-31 - [id number] tablet (5 Methodi ) 5 MG 00:00: [...] 30 days. sevelamer 2019-10 2020- No 800mg Q.[id number] Take 1 Donnelly (RENVELA) 08-31 [id number] tablet M ethodi 800 mg 00:00: 23:59 [...] blood 2020-08-01 11:42:50 151 mm[Hg] Dianeto n Taoist pressure Diastolic blood 2020-08-01 11:42:50 63 mm[Hg] Oscar on Taoist pressure Body temperature 2020-08-01 11:42:50 37.28 Thalia Diane ton Taoist Body weight 2020-08-01 05:21:26 75.206 kg Rafal Torres BMI 2020-08-01 05:21:26 27.59 kg/m2 Rafal Torres Body height 2020-07-24 08:16:00 165.1 cm Rafal Torres Procedures Procedure Date / Time Performing Source Performed Clinician POC GLUCOSE 2020-08-01 Jacquelyn Sawyer [place]ly 11:43:00 Sea Torres POC GLUCOSE 2020-08-01 Jacquelyn Sawyer [place] 07:23:00 Sea Torres BASIC METABOLIC PANEL 2020-08-01 Jacquelyn Sawyer Lyles 02:55:00 Sea Torres ESTIMATED GFR 2020-08-01 Jacquelyn Sawyer [place] 02:55:00 Sea Torres POC GLUCOSE 2020-07-31 Sawyer Valladares Donnelly 17:23:00 Sea Torres HEMOGLOBIN A1C 2020-07-31 Jacquelyn Sawyer [place]ly 16:17:00 Sea Torres POC GLUCOSE 2020-07-31 Jacquelyn Sawyer [place]nelly 11:56:00 Sea Torres POC GLUCOSE 2020-07-31 Jacquelyn Sawyer [place] 09:12:00 Sea Torres POC GLUCOSE 2020-07-30 Jacquelyn Sawyer [place] 21:01:00 Sea Torres POC GLUCOSE 2020-07-30 Jacquelyn Sawyer Donnelly 18:26:00 Sea Torres HEMODIALYSIS 2020-07-30 Zack Hamilton Donnel[place] 15:18:35 Taoist NM GASTRIC EMPTYING 2020-07-30 TroyFannie Lyles 14:10:01 Elizabeth R Taoist POC GLUCOSE 2020-07-30 [facility] [place] 12:32:00 Sea Taoist XR CHEST 1 VW 2020-07-30 Sawyer Valladares Donnelly 09:09:08 Seawashington Torres US THORACENTESIS WITH IMAGING 2020-07-30 DevineSergio Donnelly 09:07:46 A. Taoist CYTOLOGY (NON-GYNECOLOGICAL) 2020-07-30 Sawyer Valladares Nabeel ston REQUEST 08:45:00 Sea Taoist BASIC METABOLIC PANEL 2020-07-30 [facility] [place] 04:54:00 Sea Taoist ESTIMATED GFR 2020-07-30 [facility] [place] 04:54:00 Sea Taoist POC GLUCOSE 2020-07-29 [facility], [facility] 21:00:00 Sea Taoist POC GLUCOSE 2020-07-29 [facility] 17:55:00 Sea Taoist POC GLUCOSE 2020-07-29 [facility] 14:52:00 Sea Taoist SURGICAL PATHOLOGY REQUEST 2020-07-29 [facility]Sawyer melo [facility] 14:22:00 Sea Taoist POC GLUCOSE 2020-07-29 [facility] 14:02:00 Sea Taoist ESOPHAGOGASTRODUODENOSCOPY (EGD) 2020-07-29 Prem Loja V. Donnelly 13:26:00 Taoist POC PANEL 2020-07-29 [facility] [place] 13:21:00 Sea Taoist POC GLUCOSE 2020-07-29 [facility] 09:07:00 Sea Taoist BASIC METABOLIC PANEL 2020-07-29 [facility] 05:40:00 Taoist ESTIMATED GFR 2020-07-29 Zully Nichole [facility] 05:40:00 Taoist HC COMPLETE BLD COUNT W/AUTO DIFF 2020-07-29 Zully Nichole Ed [facility] 05:20:00 Taoist POC GLUCOSE 2020-07-28 Lorna Segura Donnelly 21:19:00 Taoist POC GLUCOSE 2020-07-28 Lorna Segura Donnelly 18:12:[address] CHEST WO CONTRAST 2020-07-28 Sergio Devine Donnelly 12:53:09 A. Taoist POC GLUCOSE 2020-07-28 Lorna Segura Donnelly 11:46:00 Taoist HEMODIALYSIS 2020-07-28 Zack Hamilton Don[place] 09:31:26 Taoist HC COMPLETE BLD COUNT W/AUTO DIFF 2020-07-28 [facility] 05:30:00 Taoist BASIC METABOLIC PANEL 2020-07-28 [facility] 04:00:00 Taoist ESTIMATED GFR 2020-07-28 [facility] 04:00:00 Taoist POC GLUCOSE 2020-07-27 [facility] 21:26:00 Sea Taoist POC GLUCOSE 2020-07-27 [facility] 17:30:00 Sea Taoist AFB CULTURE 2020-07-27 [facility] 15:46:00 A. Taoist FUNGUS CULTURE 2020-07-27 [facility] 15:46:00 A. Taoist CYTOLOGY (NON-GYNECOLOGICAL) 2020-07-27 Lorna Segurau ston REQUEST 15:42:00 Taoist XR CHEST 1 VW 2020-07-27 Orlin Obrien Donnelly 14:55:00 Iftikhar Taoist US THORACENTESIS WITH IMAGING 2020-07-27 [facility] 14:47:50 A. Taoist GLUCOSE LEVEL, MISC FLUID 2020-07-27 [facility] ton 14:46:00 A. Taoist LDH, MISC FLUID 2020-07-27 [facility] 14:46:00 A. Taoist PROTEIN, MISC FLUID 2020-07-27 [facility] 14:46:00 A. Taoist AEROBIC CULTURE 2020-07-27 [facility] 14:46:00 A. Taoist ANAEROBIC CULTURE 2020-07-27 [facility] 14:46:00 A. Taoist AF[employer] STAIN 2020-07-27 [facility] 14:46:00 A. Taoist GRAM STAIN 2020-07-27 [facility] 14:46:00 A. Taoist POC GLUCOSE 2020-07-27 [facility] 12:12:00 Sea Taoist POC GLUCOSE 2020-07-27 [facility] 07:43:00 Sea Taoist BASIC METABOLIC PANEL 2020-07-27 [facility], [facility] 03:11:00 Taoist ESTIMATED GFR 2020-07-27 Ruocco, Dulce Donnelly 03:11:00 Taoist HC COMPLETE BLD COUNT W/AUTO DIFF 2020-07-27 Ruocco, Dulce Donnelly 02:55:00 Taoist POC GLUCOSE 2020-07-26 McCkameron, Sawyer Lyles 21:04:00 Sea Taoist POC GLUCOSE 2020-07-26 McCkameron, Sawyer Donnelly 17:54:00 Sea Taoist XR CHEST 1 VW PORTABLE 2020-07-26 Ruocco, Dulce Donnelly 16:45:10 Taoist POC GLUCOSE 2020-07-26 McCartan, Sawyer Donnelly 12:55:00 Sea Taoist POC GLUCOSE 2020-07-26 McCartan, Sawyer Donnelly 08:42:00 Sea Taoist POC GLUCOSE 2020-07-26 McCartan, Sawyer Donnelly 07:45:00 Sea Taoist BASIC METABOLIC PANEL 2020-07-26 Ruocco, Dulce Donnelly 03:05:00 Taoist PHOSPHORUS LEVEL 2020-07-26 Alfonso, Zack Carter Donnelly 03:05:00 Taoist ESTIMATED GFR 2020-07-26 Ruocco, Dulce Donnelly 03:05:00 Taoist HC COMPLETE BLD COUNT W/AUTO DIFF 2020-07-26 Ruocco, Dulce Donnelly 02:48:00 Taoist POC GLUCOSE 2020-07-25 McCkameron, Sawyer Donnelly 17:49:00 Sea Taoist HEMODIALYSIS 2020-07-25 Alfonso, Zack Carter Donnelly 16:50:39 Taoist FL ESOPHAGRAM SINGLE CONTRAST 2020-07-25 Jacobo Whitten 15:16:58 Megha Kennedy Taoist POC GLUCOSE 2020-07-25 McCkameron, Sawyer Lyles 11:56:00 Sea Taoist POC GLUCOSE 2020-07-25 McCartan, Sawyer Lyles 07:23:00 Sea Taoist BASIC METABOLIC PANEL 2020-07-25 [facility] Don[place]ly 03:33:00 Sea Taoist ESTIMATED GFR 2020-07-25 Sylwiaartan, Sawyer Lyles 03:33:00 Sea Taoist POC GLUCOSE 2020-07-24 McCartan, Sawyer Lyles 21:15:00 Sea Taoist POC GLUCOSE 2020-07-24 McCkameron, Sawyer Donnelly 17:39:00 Sea Taoist POC GLUCOSE 2020-07-24 McCartan, Sawyer Donnelly 12:09:00 Sea Taoist CV STRESS TEST NUCLEAR CARDIO 2020-07-24 PapiAdriana gamble 10:34:38 Lamberto Torres NM MYOCARDIAL PERFUSION STRESS 2020-07-24 Papi Adriana Anisa ren ONLY 10:34:38 Lamberto Torres POC GLUCOSE 2020-07-24 [facility] 07:48:00 Sea Taoist HEMODIALYSIS 2020-07-24 Alfonso, Zack Raul Donnelly 07:21:50 Taoist HC COMPLETE BLD COUNT W/AUTO DIFF 2020-07-24 [facility] 04:40:00 Sea Taoist BASIC METABOLIC PANEL 2020-07-24 [facility], Sawyer Donnelly 04:00:00 Sea Taoist ESTIMATED GFR 2020-07-24 [facility], [facility] 04:00:00 Sea Taoist POC GLUCOSE 2020-07-23 [facility], [facility] 20:42:00 Sea Taoist POC GLUCOSE 2020-07-23 [facility], [facility] 17:54:00 Sea Taoist HEPATITIS B SURFACE ANTIGEN 2020-07-23 Alfonso, Zack mcclure 13:30:00 Taoist POC GLUCOSE 2020-07-23 [facility], Sawyer Donnelly 12:00:00 Sea Taoist AFB CULTURE 2020-07-23 Ellison, Radha Donnelly 10:40:00 Taoist FUNGUS CULTURE 2020-07-23 Ellison, Radha Donnelly 10:40:00 Taoist XR CHEST 1 VW 2020-07-23 Sim, Nichole Donnelly 10:30:00 Neelima Taoist US THORACENTESIS WITH IMAGING 2020-07-23 Ellison, Radha [facility] 10:11:00 Taoist ANAEROBIC CULTURE 2020-07-23 Ellison, Radha Donnelly 09:40:00 Taoist AEROBIC CULTURE 2020-07-23 Ellison, Radha Donnelly 09:40:00 Taoist GRAM STAIN 2020-07-23 Ellison, Radha Donnelly 09:40:00 Taoist AFB STAIN 2020-07-23 Ellison, Radha Donnelly 09:40:00 Taoist ULTRAFILTRATION 2020-07-23 Alfonso, Zack Carter Donnelly 09:22:41 Taoist HC COMPLETE BLD COUNT W/AUTO DIFF 2020-07-23 Zonia Ratliff Donnelly 04:50:00 Samantha Taoist BASIC METABOLIC PANEL 2020-07-23 Yen Ratliff Donnelly 04:00:00 Samantha Torres MAGNESIUM LEVEL 2020-07-23 Yen Ratliff Donnelly 04:00:00 Samantha Torres ESTIMATED GFR 2020-07-23 Yen Ratliff Donnelly 04:00:00 Samantha Torres POC GLUCOSE 2020-07-22 [facility] 21:34:00 Taoist ECG 12-LEAD 2020-07-22 EllisonRadha wong Donnelly 19:23:38 Taoist ALT (SGPT) 2020-07-22 [facility] 18:47:00 Taoist ALKALINE PHOSPHATASE 2020-07-22 [facility] 18:47:00 Taoist POTASSIUM LEVEL 2020-07-22 [facility] 18:47:00 Taoist AST (SGOT) 2020-07-22 [facility] 18:47:00 Taoist XR CHEST 1 VW PORTABLE 2020-07-22 [facility] 18:01:00 Taoist POC GLUCOSE 2020-07-22 [facility] 17:42:00 Taoist COVID-19 QUALITATIVE PCR 2020-07-22 [facility] 17:01:00 Sea Taoist HC COMPLETE BLD COUNT W/AUTO DIFF 2020-07-22 EllisonRadha Donnelly 17:00:00 Taoist COMPREHENSIVE METABOLIC PANEL 2020-07-22 [facility] 17:00:00 Taoist PROTHROMBIN TIME WITH INR 2020-07-22 [facility] Temo n 17:00:00 Taoist ESTIMATED GFR 2020-07-22 EllisonRadha wong Donnelly 17:00:00 Taoist B NATRIURETIC PEPTIDE 2020-07-22 EllisonRadha wong Donnelly 17:00:00 Taoist Plan of Care Planned Activity Planned Date Details Comments Source Future Scheduled 2023-07-30 Screening for [facility] thodist Test 00:00:00 malignant neoplasm of cervix (procedure) [code = 862306133] Future Scheduled 2021-05-03 INFLUENZA VACCINE Temo pagan Taoist Test 00:00:00 [code = INFLUENZA VACCINE] Future Scheduled 2010 BREAST CANCER Donnelly Me thodist Test 00:00:00 SCREENING [code = BREAST CANCER SCREENING] Future Scheduled 2010 COLONOSCOPY SCREENING [place] [facility] Test 00:00:00 [code = COLONOSCOPY SCREENING] Future Scheduled 2010 SHINGLES VACCINES [place] Taoist Test 00:00:00 (#1) [code = SHINGLES VACCINES (#1)] Future Scheduled 1978 Hepatitis C screening [place] [facility]ist Test 00:00:00 (procedure) [code = 976564102] Future Scheduled 1972 COVID-19 VACCINE (1) Nabeel ston Taoist Test 00:00:00 [code = COVID-19 VACCINE (1)] Future Scheduled 1970 DIABETES: RETINAL EYE [place] [facility] Test 00:00:00 EXAM [code = DIABETES: RETINAL EYE EXAM] Future Scheduled 1970 DIABETIC FOOT EXAM [place] Taoist Test 00:00:00 [code = DIABETIC FOOT EXAM] Encounters Start End Encounter Admission Attending Care Care Encounter Source Date/Time Date/Time Type Type Clinicians Facility Department ID 2020-08-07 2020-08-07 Outpatient DELAFLOR-SA [facility] [id number] Donnelly 00:00:00 00:00:00 NTAANA, 542 Method i CRISTÓBAL 2020-07-22 2020-08-01 Inpatient MCCARTAN, [facility] [id number] Donnelly 00:00:00 00:00:[address] 2020-04-24 2020-04-24 Office David [facility] [id number] 13:04:48 13:52:13 Visit Elva Paez [id number] Yue 4.2.7.2.686 Annalee [id number] [address] Results Test Description Test Time Test Comments Results Result Sourc e Comments US Thoracentesis 2020-07[facility]04 [facility] Radiology Results Metho [...] was used for local anesthesia. A 5 Faroese One-step catheter was inserted into the pleural space and 1.1 L of pleural fluid was removed. Post procedure images reveal a small residual effusion. The patient tolerated the procedure without difficulty and was discharged to the radiology recovery area for postprocedure chest x-ray prior to discharge.EBL: None. COMPLICATIONS: None.SPECIMENS: As above.Attending: Dr. Caesar Alva IMPRESSION:Technical ly successful ultrasound-guided right-sided therapeutic thoracentesis.[facility]-2U [id number] and approved by cardiac cath lab radiology technologist/fellow: Jonathan Theodore M.D.I, Caesar Alva M.D., personally reviewed the images and resident's/fellow's findings and agree with the final report. Cytology (non-gynecological) request 2020-07-30 17:07:31 Test Item Value Reference Range Interpretation Comme nts Case number (test code = [id number]) [id number] Cytology (non-gynecological) report See link below for PDF Lab Repo rt (test code = 1178) Result status (test code = 5821565) This is Final Report for [id number] [facility] Gastric [id number] 16:40:51Hm Interface, Radiology Results 07/30/2020 4:43 PM CDTFormatting of this note might be di fferent from the original.PROCEDURE: NM GASTRIC EMPTYINGINDICATION: suspected gastroparesis. TECHNIQUE: 0.5 millicuries of Qo-04y-odypum colloid were mixed with an egg and [...] IMPRESSION: Markedly delayed gastric emptying, compatible with gastroparesis.[facility]-[id number] and approved by cardiac cath lab radiology technologist/fellow: Pato Love M.D.I, Jose De Dios MD, personally reviewed the images and resident's/fellow's findings and agree with the final report.[facility] pathology [id number] 13:21:04 Test Item Value Reference Range Interpretation Comments Case number (test code = [id number]) Surgical pathology See link below for report (test code = PDF Lab Report 2255) Result status (test code This is Final Report = [id number]) for [id number] [facility] MethodistXR Chest 1 [id number] 09:11:50Hm Interface, Radiology Results - 07/30/2020 9:14 [...] A right chest tunneled dialysis catheter is unchanged.[id number] MethodistCT Chest Wo [id number] 13:40:17Hm Interface, Radiology Results - 07/28/2020 1:43 [...] interval. Left lung is clear. Bones are unchanged.*[facility]-[id number] MethodistFL Esophagram Single Contrast 2020-07-25 15:23:52Hm Interface, [...] during the course of study.IMPRESSION:Decreased esophageal motility.[id number] MethodistCv stress [id number] 07:51:03 Test Item Value Reference Range Interpretation Comments Resting HR (test code 68 = 6420005052) Resting BP (test code 143&65 = 8774283315) Peak MET Achieved 1 (test code = 4426298317) Protocol Name (test REGADENO code = 7661283903) Time in Exercise 00:01:00 Phase (test code = 1637052630) Max Systolic BP (test 143 code = 1967910273) Max Diastolic BP 65 (test code = 7814577283) Max Heart Rate (test 77 code = 6282472313) Max Predicted Heart 161 Rate (test code = 8615262404) Target HR Formula (220 - Age)*100% (test code = 9160137059) Test Indication (test CAD RISK,HIGH code = 2934977216) ASYMPTOMATIC Arrhy During Ex (test code = 1373412821) ECG Interp Before EX (test code = 6060835536) ECG Interp During Ex (test code = 2519880485) Ex Summary Comment (test code = 8911597324) Overall HR Response to Exercise (test code = 5093574715) Overall BP Response To Exercise (test code = 1879209818) Reason for Protocol Complete Termination (test code = 7215227211) Stress Test Waveform interpreted in Impression (test code report associated with = 0619951452) image study. No interpretation is provided as part of this Stress ECG report.-- [facility] myocardial [id number] 11:49:00Interface, Radiology Results In - 07/24/2020 11:50 AM CDTFormatting of this note might be different f rom the original. [facility] Heart & Vascular Nuclear Cardiology Department [address] [place] [address] Myocardial Perfusion Imaging Report Pat.Name: SUZANNE MAIER Sunita.ID: [id number] St.Date: 07/24/2020 Refer.MD: ADRIANA EWING MD Exam Time: 8:54:00 AM Study Type:Myocardial Perfusion ImagingHeight: 65in Weight: 170lb BSA: 1.85 m2 Age: 11 1960,59Y Sex: FEMALE BP: 143/65 HR: 67 bpm Nuclear Tech:Debbie Collins [facility],JUNITO/Vignesh Villalta [facility], ARRTPat. Stat.:Inpatient Room: D 914A Tape Vol: 29.17, Nuclear Event ID:[id number] Order ID: [id number] Reason for Study:CAD risk, High, AsymptomaticHistory / [...] Atrial rate (test code = 79 255) MS interval (test code = 200 266) QRSD [...]
[2021-02-27 07:50] LABS: Absolute Lymphocytes (CBC) 0.9 K/uL (0.7-4.9); Basophils % 0.8 % (0-1.3); Hematocrit 30.4 % (36.0-45.0); Lymphocytes % 11.8 % (15.3-44.8); MPV 9.2 fL (7.6-11.3); RBC Red Blood Cell Count 3.26 M/uL (3.86-4.86)
--- NOTE | 2021-02-27 08:05 | EDPHYS ---
Physician Documentation [facility] Name: Enma Bolden Age: 60 yrs Sex: Female : 1960 Arrival Date: 02/27/2021 Time: 05:27 Bed 17 Private MD: ED Physician Nicolas Tolliver HPI: 02/27 08:07 This 60 yrs old Female presents to ER via Ambulatory with complaints of Cath kdr bleeding. 08:07 Patient presents to ED for recheck of: puncture wound. The affected area is on the kdr right lower quadrant. Progress: The patient reports excellent improvement in the affected area. There has been resolution, improvement, or non-development of any drainage, fever, pain, redness or swelling. The patient has not experienced similar symptoms in the past. The patient has been recently seen by a physician: Had PD cath placed one week ago.. Historical: - Allergies: 05:57 Lisinopril; ad5 05:57 Sulfa (Sulfonamide Antibiotics); ad5 - Home Meds: 05:57 amlodipine 10 mg tab 1 tab once daily [Active]; Metoprolol Tartrate Oral 1 tab 2 times ad5 per day [Active]; doxazosin 4 mg oral tab one tablet in the AM, two tablets in the PM [Active]; - PMHx: 05:57 Dialysis; Hypertension; ad5 - Immunization history:: Adult Immunizations unknown. - Social history:: Smoking status: unknown. ROS: 08:07 Constitutional: Negative for fever, chills, and weight loss, Eyes: Negative for injury, kdr pain, redness, and discharge, ENT: Negative for injury, pain, and discharge, Neck: Negative for injury, pain, and swelling, Cardiovascular: Negative for chest pain, palpitations, and edema, Respiratory: Negative for shortness of breath, cough, wheezing, and pleuritic chest pain, Abdomen/GI: Negative for abdominal pain, nausea, vomiting, diarrhea, and constipation, - there is a fresh post op PD cath site insertion with a blood soaked dressing. No active bleeding at this time Back: Negative for injury and pain, : Negative for injury, bleeding, discharge, and swelling, MS/Extremity: Negative for injury and deformity, Skin: Negative for injury, rash, and discoloration, Neuro: Negative for headache, weakness, numbness, tingling, and seizure activity. Psych: Negative for depression, anxiety, suicide ideation, homicidal ideation, and hallucinations, Allergy/Immunology: Negative for hives, rash, and allergies, Endocrine: Negative for neck swelling, polydipsia, polyuria, polyphagia, and marked weight changes, Hematologic/Lymphatic: Negative for swollen nodes, abnormal bleeding, and unusual bruising. Exam: 08:07 Abdomen/GI: Dressing removed and site cleaned . No active bleeding. Insertion site kdr o/w looks good. 08:10 Constitutional: This is a well developed, well nourished patient who is awake, alert, kdr and in no acute distress. Vital Signs: 05:54 BP 190 / 83; Pulse 76; Resp 18 S; Temp 97.6(TE); Pulse Ox 98% on R/A; Weight 81.65 kg; ad5 Height 5 ft. 5 in. (165.10 cm); Pain 0/10; 07:16 Pulse 74; Resp 17 S; Pulse Ox 98% on R/A; jd3 08:03 BP 194 / 88; Pulse 74; Resp 16 S; Pulse Ox 99% on R/A; jd3 05:54 Body Mass Index 29.95 (81.65 kg, 165.10 cm) ad5 Opdyke Coma Score: 06:03 Eye Response: spontaneous(4). Verbal Response: oriented(5). Motor Response: obeys ad5 commands(6). Total: 15. MDM: 08:04 Patient medically screened. kdr 08:10 Data reviewed: vital signs, nurses notes. Counseling: I had a detailed discussion with kdr the patient and/or guardian regarding: the historical points, exam findings, and any diagnostic results supporting the discharge/admit diagnosis, lab results, the need for outpatient follow up. Response to treatment: the patient's symptoms have markedly improved after treatment, the patient's symptoms have resolved after treatment, the patient's condition has returned to base line. Physician consultation: Axel Chaney MD regarding consult, patient's condition, and will see patient in ED, immediately. Special discussion: I discussed with the patient/guardian in detail that at this point there is no indication for admission to the hospital. It is understood, however, that if the symptoms persist or worsen the patient needs to return immediately for re-evaluation. 02/27 07:20 Order name: CBC with Diff; Complete Time: 08:02 kdr 05/28 07:17 Order name: Can. Order: Dress wound/Cath site; Complete Time: 07:18 kdr Administered Medications: No medications were administered Disposition: 02/27/21 08:04 Discharged to Home. Impression: Peritoneal Dialysis Cath site bleeding - resolved. - Condition is Stable. - Blank Diagnosis Outline, Medication Reconciliation Form, Thank You Letter, Antibiotic Education, Prescription Opioid Use form. - Follow up: Private Physician; When: 2 - 3 days; Reason: If symptoms return, Further diagnostic work-up, Recheck today's complaints, Continuance of care, Re-evaluation by your physician. Follow up: Axel Chaney MD; When: 2 - 3 days; Reason: If symptoms return, Further diagnostic work-up, Recheck today's complaints, Continuance of care, Re-evaluation by your physician. - Problem is new. - Symptoms are resolved. Signatures: Dispatcher [employer] EDNicolas Mendoza MD MD kdr Davies, Jonathon, RN RN jd3 John Boothe Corrections: (The following items were deleted from the chart) 08:27 08:04 02/27/2021 08:04 Discharged to Home. Impression: Peritoneal Dialysis Cath site jd3 bleeding - resolved. Condition is Stable. Forms are Medication Reconciliation Form, Thank You Letter, Antibiotic Education, Prescription Opioid Use. Follow up: Private Physician; When: 2 - 3 days; Reason: If symptoms return, Further diagnostic work-up, Recheck today's complaints, Continuance of care, Re-evaluation by your physician. Follow up: Axel Chaney; When: 2 - 3 days; Reason: If symptoms return, Further diagnostic work-up, Recheck today's complaints, Continuance of care, Re-evaluation by your physician. Problem is new. Symptoms are resolved. kdr
--- NOTE | 2021-02-27 08:05 | ER ---
Nurse's Notes [facility] Name: Enma Bolden Age: 60 yrs Sex: Female : 1960 Arrival Date: 02/27/2021 Time: 05:27 Bed 17 Private MD: Diagnosis: Peritoneal Dialysis Cath site bleeding - resolved Presentation: 02/27 05:54 Chief complaint: Patient states: Pt presents to ED c/o PD cath site bleeding to R lower ad5 abd, denies pain or other c/o. Coronavirus screen: Client denies travel out of the [place] in the last 14 days. At this time, the client does not indicate any symptoms associated with coronavirus-19. Ebola Screen: No symptoms or risks identified at this time. Initial Sepsis Screen: Does the patient meet any 2 criteria? No. Patient's initial sepsis screen is negative. Does the patient have a suspected source of infection? No. Patient's initial sepsis screen is negative. Risk Assessment: Do you want to hurt yourself or someone else? Patient reports no desire to harm self or others. Onset of symptoms was February 27, 2021. 05:54 Method Of Arrival: Ambulatory ad5 05:54 Acuity: JOSE 3 ad5 Triage Assessment: 05:58 General: Appears in no apparent distress. comfortable, Behavior is cooperative, ad5 appropriate for age, anxious. Pain: Denies pain. Historical: - Allergies: 05:57 Lisinopril; ad5 05:57 Sulfa (Sulfonamide Antibiotics); ad5 - Home Meds: 05:57 amlodipine 10 mg tab 1 tab once daily [Active]; Metoprolol Tartrate Oral 1 tab 2 times ad5 per day [Active]; doxazosin 4 mg oral tab one tablet in the AM, two tablets in the PM [Active]; - PMHx: 05:57 Dialysis; Hypertension; ad5 - Immunization history:: Adult Immunizations unknown. - Social history:: Smoking status: unknown. Screenin:02 Abuse screen: Denies threats or abuse. Denies injuries from another. Nutritional ad5 screening: No deficits noted. Tuberculosis screening: No symptoms or risk factors identified. Fall Risk None identified. Assessment: 05:59 General: Appears in no apparent distress. comfortable, Behavior is cooperative, ad5 appropriate for age, anxious. Pain: Denies pain. Neuro: No deficits noted. Level of Consciousness is awake, alert, obeys commands, Oriented to person, place, time, situation, Appropriate for age Gait is steady, Intact. Cardiovascular: No deficits noted. Heart tones present Capillary refill < 3 seconds Patient's skin is warm and dry. Pulses are all present. Respiratory: No deficits noted. Airway is patent Respiratory effort is even, unlabored, Respiratory pattern is regular, symmetrical. GI: Abdomen is noted to have ascites, Peritoneal dialysis saturated dressing to PD site R lower abd Reports normal bowel habits, Patient currently denies abdominal pain, nausea, pain, vomiting. : No deficits noted. No signs and/or symptoms were reported regarding the genitourinary system. EENT: No deficits noted. Derm: Skin is intact, Skin is dry, Skin is normal, Skin temperature is warm. Musculoskeletal: No deficits noted. 06:36 Reassessment: Patient appears in no apparent distress at this time. Patient and/or ad5 family updated on plan of care and expected duration. Pain level reassessed. Patient is alert, oriented x 3, equal unlabored respirations, skin warm/dry/pink. Patient denies pain at this time. 07:04 General: Appears in no apparent distress. comfortable, Behavior is cooperative, jd3 appropriate for age, anxious. Pain: Denies pain. Neuro: Level of Consciousness is awake, alert, obeys commands, Oriented to person, place, time, situation. Cardiovascular: Capillary refill < 3 seconds Patient's skin is warm and dry. Respiratory: Airway is patent Respiratory effort is even, unlabored, Respiratory pattern is regular, symmetrical. GI: Abdomen is round Peritoneal dialysis newly placed, noted to left lower quadrant with small amount of bleeding noted around the site. dressing in place. : No signs and/or symptoms were reported regarding the genitourinary system. EENT: No signs and/or symptoms were reported regarding the EENT system. Derm: Skin is intact, Skin is dry, Skin is normal, Skin temperature is warm. Musculoskeletal: Circulation, motion, and sensation intact. Range of motion: intact in all extremities. 07:17 Reassessment: Patient appears in no apparent distress at this time. Patient and/or jd3 family updated on plan of care and expected duration. Pain level reassessed. Patient is alert, oriented x 3, equal unlabored respirations, skin warm/dry/pink. 07:18 Reassessment: dressing placed on cath site. jd3 07:45 Reassessment: Patient and/or family updated on plan of care and expected duration. Pain jd3 level reassessed. Patient is alert, oriented x 3, equal unlabored respirations, skin warm/dry/pink. surgeon at bedside, reports pt is ready for discharge as long as hemoglobin is above 7. 08:25 Reassessment: Patient appears in no apparent distress at this time. Patient and/or jd3 family updated on plan of care and expected duration. Pain level reassessed. Patient is alert, oriented x 3, equal unlabored respirations, skin warm/dry/pink. pt reports she will return home after discharge and take her morning meds including her BP medication. Vital Signs: 05:54 BP 190 / 83; Pulse 76; Resp 18 S; Temp 97.6(TE); Pulse Ox 98% on R/A; Weight 81.65 kg; ad5 Height 5 ft. 5 in. (165.10 cm); Pain 0/10; 07:16 Pulse 74; Resp 17 S; Pulse Ox 98% on R/A; jd3 08:03 BP 194 / 88; Pulse 74; Resp 16 S; Pulse Ox 99% on R/A; jd3 05:54 Body Mass Index 29.95 (81.65 kg, 165.10 cm) ad5 Christine Coma Score: 06:03 Eye Response: spontaneous(4). Verbal Response: oriented(5). Motor Response: obeys ad5 commands(6). Total: 15. ED Course: 05:27 Patient arrived in ED. es 05:46 John Boothe is Primary Nurse. ad5 05:56 Triage completed. ad5 05:58 Arm band placed on Patient placed on a stretcher, on pulse oximetry. ad5 06:03 No provider procedures requiring assistance completed. ad5 06:09 Jeremy Sepulveda MD is Attending Physician. mh7 06:59 Attending Physician role handed off by Jeremy Sepulveda MD kdr 06:59 Nicolas Tolliver MD is Attending Physician. kdr 07:06 Patient has correct armband on for positive identification. Placed in gown. Bed in low jd3 position. Call light in reach. Side rails up X 1. Pulse ox on. NIBP on. 07:18 Primary Nurse role handed off by John Boothe jd3 07:18 Rajan Hernandes, RN is Primary Nurse. jd3 07:31 Initial lab(s) drawn, by me, sent to lab. jd3 08:03 Axel Chaney MD is Referral Physician. kdr 08:26 Patient did not have IV access during this emergency room visit. jd3 Administered Medications: No medications were administered Outcome: 08:04 Discharge ordered by MD. kdr 08:26 Discharged to home ambulatory. jd3 08:26 Condition: stable 08:26 Discharge instructions given to patient, Instructed on discharge instructions, follow up and referral plans. Demonstrated understanding of instructions, follow-up care. 08:27 Patient left the ED. jd3 Signatures: Nicolas Tolliver MD MD kdr Renate Mansfield Jonathon, RN RN jJeremy Wilkes MD MD 7 John Boothe [facility] Corrections: (The following items were deleted from the chart) 08:09 08:03 BP 185 / 87; Pulse 73bpm; Resp 16bpm; Spontaneous; Pulse Ox 97% RA; jd3 jd3
[2021-02-27 08:33] VITALS: TEMP 97.6
[2021-02-27 08:35] VITALS: BP 194/88; O2SAT 99
== END 2021-02-27 08:27 | disposition home or self-care (01) ==
LOC: ER 05:23
DX: T82.838A Hemorrhage due to vascular prosthetic devices, implants and grafts, initial encounter (principal); I10 Essential (primary) hypertension; Z99.2 Dependence on renal dialysis; Z88.2 Allergy status to sulfonamides; Z88.8 Allergy status to other drugs, medicaments and biological substances
CPT/HCPCS: 36415; 85025; 99283

== ENCOUNTER 2021-03-11 07:03 | Day surgery (SDC) | payer OTHER ==
[2021-03-10 15:13] LABS: Potassium 3.7 mmol/L (3.5-5.1)
[2021-03-11] MEDS ORDERED: NA CHLORIDE 0.9% 1,000 ML ONE ×2 (07:40→08:34)
[2021-03-11] MEDS ORDERED: FENTANYL CITR 100 MCG/2 ML ONE (09:12)
[2021-03-11] MEDS ORDERED: propofoL 200 MG/20 ML VIAL IV ONE (09:12)
[2021-03-11] MEDS ORDERED: MIDAZOLAM HCL 2 MG/2 ML INJ ONE (09:13)
[2021-03-11] MEDS ORDERED: ONDANSETRON 4 MG/2 ML VIAL ONE ×2 (09:13→12:55)
[2021-03-11] MEDS ORDERED: NEOSTIGMINE 1 MG/ML -5 ML ONE (09:14)
[2021-03-11] MEDS ORDERED: GLYCOPYRROLATE 0.2 MG/ML SYR ONE (09:14)
[2021-03-11] MEDS ORDERED: LIDOCAINE 1% MPF 5 ML VIAL ONE (09:14)
[2021-03-11] MEDS ORDERED: ROCURONIUM 50 MG/5 ML VIAL IV ONE (09:16)
[2021-03-11] MEDS: CEFAZOLIN/SWI 1gm 1 GM/10 ML SYR ONE ×2 (09:20→09:31)
[2021-03-11] MEDS: BUPIVACAINE 0.25% PF 30 ML VIAL ONE ×2 (09:27→09:29)
[2021-03-11] MEDS: HEPARIN 500 UNIT/5 ML SYR IV ONE ×2 (09:30→10:28)
[2021-03-11] MEDS ORDERED: SCOPOLAMINE HYDROBROMIDE PATCH TD ONE (09:54)
--- NOTE | 2021-03-11 10:34 | P.OP ---
Preoperative diagnosis: Peritoneal Dialysis Catheter Dysfunction Postoperative diagnosis: Peritoneal Dialysis Catheter Dysfunction Primary procedure: Removal of Peritoneal Dialysis Catheter Secondary procedure: Laparoscopic Replacement of Double Cuffed Peritoneal Dialysis Catheter Other procedure(s): Laparoscopic Adhesiolysis Anesthesia: GETA + Local Estimated blood loss: <10cc Specimen: none Findings: Prior catheter encased in omentum Complications: None Implants: Zaragoza Double Cuffed PD Catheter Transferred to: Recovery Room () Condition: Good
[2021-03-11] MEDS: FENTANYL CITR 100 MCG/2 ML ONE ×2 (10:56→11:13)
--- NOTE | 2021-03-11 12:18 | OP ---
Date of Procedure: 03/11/2021 Surgeon: Axel Chaney MD, Preoperative Diagnosis: Peritoneal dialysis catheter dysfunction. Postoperative Diagnosis: Peritoneal dialysis catheter dysfunction. Procedures Performed: 1.Removal of peritoneal dialysis catheter. 2.Laparoscopic replacement of double-cuffed peritoneal dialysis catheter. 3.Laparoscopic adhesiolysis. 4.Partial abdominal exploration. Anesthesia: General endotracheal plus local with 0.25% Marcaine. Estimated Blood Loss: Less than 10 mL. Specimen: None. Findings: Prior catheter was encased in omentum and scar tissue. Complications: None. Implants: Merit double-cuffed standard PD catheter. Disposition: The patient was transferred to recovery room in good condition. Procedure In Detail: After informed consent was obtained, the patient was brought to the operating r oom, prepped and draped in the usual sterile fashion after adequate anesthesia was achieved. Area of the left upper quadrant at the previous incision was sharply incised. A 5 mm 0-degree optical troca r was introduced in the abdomen without evidence of complication. Insufflation was obtained to 15 mm Hg at this time. There was no injury to vital structures upon entry to the abdomen. The area was in spected at this point. The peritoneal dialysis catheter previously placed on the right side was ente ring the abdomen and almost immediately upon entry, I could see a significant amount of omentum stuck to the anterior abdominal wall, new from previous abdominal inspection on the previous surgery. The omentum was stuck to the midline predominantly and covered all the way down into the pelvis. This w as encasing completely the distal aspect of the catheter including the curl. As such, the catheter w as entrapped. I was able to move the catheter out from this by gentle traction after placing an vianney tional trocar in the left lower quadrant, which was a 5 mm trocar placed under direct visualization w ithout evidence of complication. After the catheter was repositioned, it was functional at this poin t; however, due to the complication, I preferred to replace these rather than leave them in place. A s such, I opted to place a new catheter. The patient was positioned appropriately and using the Sten cil set from the Merit double-cuffed peritoneal dialysis catheter and marking the area of the left lo wer abdomen with a slightly inferior position of the catheter compared to prior positioning and made a small stab incision following the central at this point using the introducer sheath, I placed the i ntroducer sheath aiming towards the sacrococcygeal junction. At this point, the introducer sheath wa s placed, dilated up at this point with good easy dilation. I then placed the catheter into the abdo autumn wall with slightly curling and keeping the orientation of the catheter intact. At this point, I performed an additional adhesiolysis to ensure that no other omentum or intestinal contents were ne ar the catheter placement and the pelvis was swept completely clear. The patient did have some scar tissue on the right side of the abdomen near the sigmoid colon, which partially was taken down, but t his did not appear to be significant with respect to the catheter. At this point, I flushed the cath eter and flushed quite easily and air was emanating from a soft curve. I then using a tunneling chica ce brought the tunnel out ensuring that the first cuff remained in the rectus muscle and the second c uff at the prior marked position and the catheter was brought out through a separate incision on the abdominal wall. The catheter was flowing quite well at this point, it was capped. A small manny inci thien was placed prior to this for positioning of the catheter; however, this led to some bleeding and as such, I put a stitch in the skin from some skin level bleeding at that prior planned exit site. At this point, I flushed the catheter easily and noted it was instilling quite well. At this point, I started instilling approximately half a liter of saline from an IV pole set up into the patient's a bdomen and while this was going on, I removed the previously placed peritoneal dialysis catheter by m michaelg an incision over the insertion site extending the incision and over the deep cuffed position th rough the previous incisions. At this point, the catheter was ligated and removed from the peritonea l cavity and placed on the back table. I then copiously irrigated these wounds, which had minimal ai r loss. As such, I used a Jose Carlos-Cecilio suture passer to close these 2 defects using a 0 Vicryl luke ture with good apposition of the tissues and good air occlusion. At this point, the wounds were katie nsed once again and closed with a deep dermal plane of 3-0 Vicryl and skin was closed with 4-0 Monocr yl in a running fashion. At this point, after instilling 500 mL, I placed an IV bag on the floor and allowing it to drain. I received approximately 400 mL of fluid quite easily. At this point, I opte d to suction out the rest of the effluent, which was easily obtainable, but draining quite easily. A t this point, I flushed the catheter with saline under direct visualization and packed with 400 units of heparin and 4 mL of saline to ensure it might have decreased occlusion and prevent thrombosis. A t this point, the remaining trocars were removed under direct visualization and the abdomen was compl etely desufflated under direct visualization without evidence of complication. The remaining skin in cisions were copiously irrigated and closed with 4-0 Monocryl in a running fashion. Dermabond placed over top. The patient tolerated the procedure well without evidence of complication and transferred to PACU in good condition. All counts were correct at the end of the case. CESAR/BILL Voice ID: [id number] Report ID: [id number]
[2021-03-11] MEDS ORDERED: HYDROCODONE/APAP 5/325 MG TAB ONE (12:19)
[2021-03-11 14:19] VITALS: BP 128/49; TEMP 97.5; O2SAT 98
== END 2021-03-11 13:05 | disposition home or self-care (01) ==
LOC: OR 07:03
PROVIDERS: ATTEND Surgery
PROC: 0JWT33Z Revision of Infusion Device in Trunk Subcutaneous Tissue and Fascia, Percutaneous Approach (ICD-10-PCS; principal; 2021-03-11 08:30)
DX: T85.691A Other mechanical complication of intraperitoneal dialysis catheter, initial encounter (principal); N18.6 End stage renal disease; I10 Essential (primary) hypertension; Z99.2 Dependence on renal dialysis; Z45.2 Encounter for adjustment and management of vascular access device; Z20.822 Contact with and (suspected) exposure to COVID-19
CPT/HCPCS: 49325; 80048; 36415; 82947 ×2; U0003; J2704; J2250; J3010 ×2; J2710; J1642; J0690; J7030 ×2; J2405 ×2

== ENCOUNTER 2021-05-15 08:39 | Day surgery (SDC) | payer OTHER ==
[2021-05-15 09:02] LABS: Absolute Lymphocytes (CBC) 0.7 K/uL (0.7-4.9); Basophils % 0.9 % (0-1.3); Hematocrit 26.9 % (36.0-45.0); Lymphocytes % 12.4 % (15.3-44.8); MPV 8.2 fL (7.6-11.3); RBC Red Blood Cell Count 2.82 M/uL (3.86-4.86)
[2021-05-15 09:46] LABS: Blood Morphology Comment NOTED (NOT SEEN); Platelet Estimate DECR; Polychromasia SLIGHT; Stomatocytes 1+; White Blood Cell Scan OK (OK)
[2021-05-15] MEDS ORDERED: Ringers Lactate 1,000 ML IV ONE (10:08)
[2021-05-15] MEDS ORDERED: LIDOCAINE 1% MPF 5 ML VIAL ONE (11:35)
[2021-05-15] MEDS ORDERED: BUPIVACAINE 0.25% PF 10 ML VIAL ONE (11:36)
[2021-05-15] MEDS ORDERED: ONDANSETRON 4 MG/2 ML VIAL ONE (12:25)
[2021-05-15] MEDS ORDERED: LIDOCAINE 2% MPF 5 ML VIAL ONE (12:25)
[2021-05-15] MEDS ORDERED: dexAMETHasone 10 MG/ML VIAL ONE (12:25)
[2021-05-15] MEDS ORDERED: FENTANYL CITR 100 MCG/2 ML ONE (12:25)
[2021-05-15] MEDS ORDERED: MIDAZOLAM HCL 2 MG/2 ML INJ ONE (12:25)
[2021-05-15] MEDS ORDERED: propofoL 200 MG/20 ML VIAL IV ONE (12:25)
--- NOTE | 2021-05-15 12:36 | P.OP ---
Preoperative diagnosis: Discontinuation of Hemodialysis Postoperative diagnosis: Discontinuation of Hemodialysis Primary procedure: Removal of LEFT Internal Jugular Tunnelled Hemodialysis Catheter Anesthesia: IV sedation + Local Estimated blood loss: <5cc Specimen: none Findings: good hemostasis @ end of procedure Complications: None Transferred to: Recovery Room Condition: Good
[2021-05-15] MEDS ORDERED: LIDOCAINE 1.5% W/EPI AMP 5 ML ONE (12:43)
[2021-05-15] MEDS ORDERED: LIDOCAINE 1% W/EPI 1:100,000 10 ML VIAL ONE (12:44)
--- NOTE | 2021-05-15 13:05 | OP ---
Date of Procedure: 05/15/2021 Surgeon: Axel Chaney MD, Preoperative Diagnosis: Discontinuation of hemodialysis. Postoperative Diagnosis: Discontinuation of hemodialysis. Procedure Performed: Removal of left internal jugular vein tunneled hemodialysis catheter. Anesthesia: IV sedation local with 0.25% Marcaine without epinephrine. Estimated Blood Loss: Less than 5 mL. Specimen: None. Findings: Good hemostasis at the end the procedure. Complications: None. Disposition: The patient transferred to recovery room in good condition. Procedure In Detail: After informed consent was obtained the patient was brought to the operating ro om, prepped and draped in the usual sterile fashion. After adequate anesthesia was achieved, the pat ient was placed in steep Trendelenburg position. I removed the sutures from the previously placed luke rgeon onto the hemodialysis catheter. I then dilated up the tract of the insertion site on the chest wall with a hemostat. I brought the hemodialysis catheter cuff into visualized range and then used a combination of knife as well as scissors to remove the surrounding soft tissues, which were adheren t to the cuff until the catheter was delivered into the field. At this point, pressure was held prio r to removal of the catheter. The catheter was then removed with direct pressure being held at the i nsertion site as well as the access site. The catheter was sent off. at this point. There was no c oncern for infections, as such the catheter was not sent for any specific studies. Pressure was held . The patient was taken out of Trendelenburg position at this point with pressure continued to be he ld for 5 minutes. The patient was positioned head up position. The wound was then irrigated with sa line and closed with [id number] nylon suture with good hemostasis at this point. A sterile dres sing was placed over top. The patient tolerated the procedure well without evidence of complication and transferred to PACU in good condition. All counts were correct at the end of the case. TK/MODL Voice ID: [id number] Report ID: [id number]
[2021-05-15 13:59] VITALS: BP 146/53; TEMP 97.3; O2SAT 96
== END 2021-05-15 13:53 | disposition home or self-care (01) ==
LOC: OR 08:39
PROVIDERS: ATTEND Surgery
PROC: 05PY03Z Removal of Infusion Device from Upper Vein, Open Approach (ICD-10-PCS; principal; 2021-05-15 11:15)
DX: Z45.2 Encounter for adjustment and management of vascular access device (principal); N18.6 End stage renal disease; Z20.822 Contact with and (suspected) exposure to COVID-19
CPT/HCPCS: 85025; 36415; 36589; U0003; J2704; J2250; J3010; J7120; J2405; J1100

== ENCOUNTER 2021-08-25 00:26 | Inpatient (IN) | payer OTHER ==
--- OUTSIDE RECORDS SUMMARY | 2021-08-25 00:31 | XMS REPORT | Continuity of Care Document ---
:1960 Author Organization [facility] t Address [address] [place] [address] Care Team Providers Name Role Phone Norris WEBER, A Primary Care Physician MANCILLA Attending Clinician Unavailable JOSE WALSH Attending Clinician Unavailable Nurse, Pob Immunization Attending Clinician Unavailable Jose Walsh DO Attending Clinician JESSICA Attending Clinician Unavailable URIEL Attending Clinician Unavailable MD AQUILES FAurelia Attending Clinician Unavailable AYDEN Attending Clinician Unavailable KIANNA Attending Clinician Unavailable MD Memo BLOUNT Attending Clinician Unavailable David WEBER Attending Clinician DAVID Attending Clinician Unavailable Doctor Unassigned, Name Attending Clinician Unavailable Isac WILLOUGHBY, Ellie Attending Clinician TERESA Admitting Clinician Unavailable AQUILES Admitting Clinician Unavailable MD Americo KWAN Admitting Clinician Unavailable JOSE ALEJANDRO Admitting Clinician Unavailable MD Memo BLOUNT Admitting Clinician Unavailable Payers Payer Name Policy Type Policy Number Effective Date Expiration Date S marie MEDICARE PART A [id number] 2019 \T\ B 00:00:00 [employer] HMO [id number] 2019 00:00:00 Problems Condition Condition Condition Status Onset Resolution Last Treating Co mments Source Name Details Category Date Date Treatment Clinician Date End stage End stage Disease Active Overview: Univers renal renal 10-04 Added ity of disease disease 00:00: automatic [place] 00 ally from Medical request Branch for surgery [id number] ESRD (end ESRD (end Disease Active 2018-10 Uni vers stage stage 0-14 ity of renal renal 00:00: [place] disease) disease) 00 Medica l on on Branch dialysis dialysis History of History of Disease Active U nivers anemia due anemia due 9-23 [place] y of [place] chronic [place] kidney 00 Medical disease disease Branch Essential Essential Disease Active Uni vers hypertensi hypertensi 4-22 it y of on on 00:00: [place] 00 Medical Branch PAD PAD Disease Active Univers (periphera (periphera 2-20 it y of l artery l artery 00:00: [place] disease) disease) 00 Medica l Branch PAD PAD Disease Active Univers (periphera (periphera 2-20 it y of l artery l artery 00:00: [place] disease) disease) 00 Medica l Branch Type 2 Type 2 Disease Active Univers diabetes diabetes 4-17 ity of mellitus mellitus 00:00: [place] with with 00 Medical peripheral peripheral Br anch artery artery disease disease Allergies, Adverse Reactions, Alerts Allergy Allergy Status Severity Reaction(s) Onset Inactive Treating Comm ents Source Name Type Date Date Clinician Lisinopr Propensi Active Rash Univer s il ty to 3-31 ity of adverse 00:00: [place] reaction 00 Medical s Branch LISINOPR DRUG Active Rash 2017- Univers IL INGREDI 3-31 ity of 00:00: [place] 00 Medical Branch Sulfa Propensi Active Nausea Univers (Sulfona ty to and/or 3-27 ity of mide adverse Vomiting 00:00: [place] Antibiot reaction 00 Medica l ics) s Branch SULFA Drug Active N/V Univers (SULFONA Class 3-27 ity of MIDE 00:00: [place] ANTIBIOT 00 Medical ICS) Branch Social History Social Habit Start Date Stop Date Quantity Comments Source Exposure to Not sure [facility] SARS-CoV-2 [place] Medical (event) Branch Tobacco use and 2019-10-09 2019-10-09 Never used Universit y of exposure 00:00:00 00:00:00 [facility] Alcohol intake 2019-10-09 2019-10-09 University of 00:00:00 00:00:00 [facility] Alcohol Comment 2018-02-07 2018-02-07 very seldom per Univ ersity of 00:00:00 00:00:00 pt. [facility] Sex Ass[birth year] At [birth year] Universit y of 00:00:00 00:00:00 [facility] Smoking Status Start Date Stop Date Source Never smoker [facility] Medications Ordered Filled Start Stop Current Ordering Indication Dosage Frequency Signature Comments Components Source Medication Medication Date Date Medication? Clinician (SIG) Name Name clindamycin 2020-0 2020- No [id number] 300mg Take 1 Univers 300 mg 03-08 capsule by ity of capsule 00:00: 04:59 mouth 3 [place] 00 :00 (three) Medical times Allgood daily for 7 days. ceFAZolin 2020-0 Yes 1000mg Univer s (ANCEF) 1-10 ity of 1,000 mg in 13:00: [place] NaCl 0.9% 00 Medical (NS) 50 mL Branch MINI-BAG ceFAZolin 2020-0 Yes 1000mg Univer s (ANCEF) 1-10 ity of 1,000 mg in 13:00: [place] NaCl 0.9% 00 Medical (NS) 50 mL Branch MINI-BAG ceFAZolin 2020-0 Yes 1000mg Univer s (ANCEF) 1-10 ity of 1,000 mg in 13:00: [place] NaCl 0.9% 00 Medical (NS) 50 mL Branch MINI-BAG ceFAZolin 2020-0 Yes 1000mg Univer s (ANCEF) 1-10 ity of 1,000 mg in 13:00: [place] NaCl 0.9% 00 Medical (NS) 50 mL Branch MINI-BAG ceFAZolin 2020-0 Yes 1000mg Univer s (ANCEF) 1-10 ity of 1,000 mg in 13:00: [place] NaCl 0.9% 00 Medical (NS) 50 mL Branch MINI-BAG ceFAZolin 2020-0 Yes 1000mg Univer s (ANCEF) 1-10 ity of 1,000 mg in 13:00: [place] NaCl 0.9% 00 Medical (NS) 50 mL Branch MINI-BAG ceFAZolin 2020-0 Yes 1000mg Univer s (ANCEF) 1-10 ity of 1,000 mg in 13:00: [place] NaCl 0.9% 00 Medical (NS) 50 mL Branch MINI-BAG aspirin 81 2020-0 Yes 81mg Take 81 mg U nivers mg EC 1-07 by mouth ity of tablet 16:36: daily. [address] Branch aspirin 81 2020-0 Yes 81mg Take 81 mg U nivers mg EC 1-07 by mouth ity of tablet 16:36: daily. [address] Branch aspirin 81 2020-0 Yes 81mg Take 81 mg U nivers mg EC 1-07 by mouth ity of tablet 16:36: daily. [address] Branch aspirin 81 2020-0 Yes 81mg Take 81 mg U nivers mg EC 1-07 by mouth ity of tablet 16:36: daily. [address] Branch aspirin 81 2020-0 Yes 81mg Take 81 mg U nivers mg EC 1-07 by mouth ity of tablet 16:36: daily. [address] Branch aspirin 81 2020-0 Yes 81mg Take 81 mg U nivers mg EC 1-07 by mouth ity of tablet 16:36: daily. [address] aspirin 81 2020-0 Yes 81mg Take 81 mg U nivers mg EC 1-07 by mouth ity of tablet 16:36: daily. [address] Branch amLODIPine 2019-0 Yes [id number] 10mg Take 1 Univers 10 mg 9-27 tablet by ity of tablet 00:00: mouth [place] 00 daily. Medical Branch doxazosin 2 2018-0 Yes [id number] 2mg Take 1 Univers mg tablet 9-27 tablet by ity o f 00:00: mouth at [place] 00 bedtime. Medical Branch metoprolol 2018-0 Yes [id number] 50mg Take 1 Univers tartrate 50 9-27 tablet by ity of mg tablet 00:00: mouth 2 [place] 00 (two) Medical times Branch daily. calcium 2019-0 Yes [id number] 667mg Take 1 Univers acetate 667 9-27 [id number] capsule by ity of mg capsule 00:00: mouth 3 [place] (three) Medical times Branch daily with meals. furosemide 2019-0 Yes [id number] 80mg Take 1 Univers 80 mg 9-27 [id number] tablet by ity of tablet 00:00: mouth [place] 00 every Medical morning Branch and evening. amLODIPine 2019-0 Yes [id number] 10mg Take 1 Univers 10 mg 9-27 tablet by ity of tablet 00:00: mouth [place] 00 daily. Medical Branch doxazosin 2 2018- Yes [id number] 2mg Take 1 Univers mg tablet 9-27 tablet by ity o f 00:00: mouth at [place] 00 bedtime. Medical Branch metoprolol 2019- Yes [id number] 50mg Take 1 Univers tartrate 50 9-27 tablet by ity of mg tablet 00:00: mouth 2 [place] 00 (two) Medical times Branch daily. calcium 2019- Yes [id number] 667mg Take 1 Univers acetate 667 9-27 [id number] capsule by ity of mg capsule 00:00: [place] 3 [place] (three) Medical times Branch daily with meals. furosemide 2019- Yes [id number] 80mg Take 1 Univers 80 mg 9-27 [id number] tablet by ity of tablet 00:00: mouth [place] 00 every Medical morning Branch and evening. amLODIPine 2019- Yes [id number] 10mg Take 1 Univers 10 mg 9-27 tablet by ity of tablet 00:00: mouth [place] 00 daily. Medical Branch doxazosin 2 Yes [id number] 2mg Take 1 Univers mg tablet 9-27 tablet by ity o f 00:00: mouth at [place] 00 bedtime. Medical Branch metoprolol Yes [id number] 50mg Take 1 Univers tartrate 50 9-27 tablet by ity of mg tablet 00:00: mouth 2 00 (two) Medical times Branch daily. calcium Yes [id number] 667mg Take 1 Univers acetate 667 9-27 [id number] capsule by ity of mg capsule 00:00: mouth 3 [place] (three) Medical times Branch daily with meals. furosemide 2018- Yes [id number] 80mg Take 1 Univers 80 mg 9-27 [id number] tablet by ity of tablet 00:00: mouth [place] 00 every Medical morning Branch and evening. amLODIPine 2019- Yes [id number] 10mg Take 1 Univers 10 mg 9-27 tablet by ity of tablet 00:00: mouth [place] 00 daily. Medical Branch doxazosin 2 2018- Yes [id number] 2mg Take 1 Univers mg tablet 9-27 tablet by ity o f 00:00: mouth at [place] 00 bedtime. Medical Branch metoprolol 2018- Yes [id number] 50mg Take 1 Univers tartrate 50 9-27 tablet by ity of mg tablet 00:00: mouth 2 00 (two) Medical times Branch daily. calcium 2019-0 Yes [id number] 667mg Take 1 Univers acetate 667 9-27 [id number] capsule by ity of mg capsule 00:00: mouth 3 [place] 00 (three) Medical times Branch daily with meals. furosemide 2019- Yes [id number] 80mg Take 1 Univers 80 mg 9-27 [id number] tablet by ity of tablet 00:00: mouth [place] 00 every Medical morning Branch and evening. amLODIPine 2019- Yes [id number] 10mg Take 1 Univers 10 mg 9-27 tablet by ity of tablet 00:00: mouth [place] 00 daily. Medical Branch doxazosin 2 Yes [id number] 2mg Take 1 Univers mg tablet 9-27 tablet by ity o f 00:00: mouth at [place] 00 bedtime. Medical Branch metoprolol Yes [id number] 50mg Take 1 Univers tartrate 50 9-27 tablet by ity of mg tablet 00:00: mouth 00 (two) Medical times Branch daily. calcium Yes [id number] 667mg Take 1 Un [place] acetate 667 9-27 capsule by it y of mg capsule 00:00: mouth 3 [place] 00 (three) Medical times Branch daily with meals. furosemide 2018- Yes [id number] 80mg Take 1 Univers 80 mg 9-27 tablet by ity of tablet 00:00: mouth [place] 00 every Medical morning Branch and evening. amLODIPine Yes [id number] 10mg Take 1 Univers 10 mg 9-27 tablet by ity of tablet 00:00: mouth [place] 00 daily. Medical Branch doxazosin 2 Yes [id number] 2mg Take 1 Univers mg tablet 9-27 tablet by ity o f 00:00: mouth at [place] 00 bedtime. Medical Branch metoprolol Yes [id number] 50mg Take 1 Univers tartrate 50 9-27 tablet by ity of mg tablet 00:00: mouth 2 00 (two) Medical times Branch daily. calcium Yes [id number] 667mg Take 1 Un [place] acetate 667 9-27 capsule by it y of mg capsule 00:00: mouth 3 [place] 00 (three) Medical times Branch daily with meals. furosemide 2018- Yes [id number] 80mg Take 1 Univers 80 mg 9-27 tablet by ity of tablet 00:00: mouth [place] 00 every Medical morning Branch and evening. amLODIPine 2019- Yes [id number] 10mg Take 1 Univers 10 mg 9-27 tablet by ity of tablet 00:00: mouth [place] 00 daily. Medical Branch doxazosin 2 2018- Yes [id number] 2mg Take 1 Univers mg tablet 9-27 tablet by ity o f 00:00: mouth at [place] 00 bedtime. Medical Branch metoprolol 2018- Yes [id number] 50mg Take 1 Univers tartrate 50 9-27 tablet by ity of mg tablet 00:00: mouth 2 [place] 00 (two) Medical times Branch daily. calcium 2018- Yes [id number] 667mg Take 1 Un [place] acetate 667 9-27 capsule by it y of mg capsule 00:00: mouth 3 [place] 00 (three) Medical times Branch daily with meals. furosemide 2018- Yes [id number] 80mg Take 1 Univers 80 mg 9-27 tablet by ity of tablet 00:00: mouth [place] 00 every Medical morning Branch and evening. Cholecalcif Yes 1{capsu Take 1 U nivers maria alejandra, 4-25 le} capsule by ity of Vitamin D3, 00:00: mouth [place] 5,000 unit 00 daily. Medical tablet Branch Cholecalcif Yes 1{capsu Take 1 U nivers maria alejandra, 4-25 le} capsule by ity of Vitamin D3, 00:00: mouth [place] 5,000 unit 00 daily. Medical tablet Branch Cholecalcif Yes 1{capsu Take 1 U nivers maria alejandra, 4-25 le} capsule by ity of Vitamin D3, 00:00: mouth [place] 5,000 unit 00 daily. Medical tablet Branch Cholecalcif Yes 1{capsu Take 1 U nivers maria alejandra, 4-25 le} capsule by ity of Vitamin D3, 00:00: mouth [place] 5,000 unit 00 daily. Medical tablet Branch Cholecalcif 0 Yes 1{capsu Take 1 U nivers maria alejandra, 4-25 le} capsule by ity of Vitamin D3, 00:00: mouth [place] 5,000 unit 00 daily. Medical tablet Branch Cholecalcif Yes 1{capsu Take 1 U nivers maria alejandra, 4-25 le} capsule by ity of Vitamin D3, 00:00: mouth [place] 5,000 unit 00 daily. Medical tablet Branch Cholecalcif 2019-0 Yes 1{capsu Take 1 U nivers maria alejandra, 4-25 le} capsule by ity of Vitamin D3, 00:00: mouth [place] 5,000 unit 00 daily. Medical tablet Branch calcitriol 2019- Yes 1{capsu Take 1 Un [place] 0.25 mcg 3-31 le} capsule by ity o f capsule 00:00: mouth 2 (two) Medical times Branch daily. calcitriol 2019-0 Yes 1{capsu Take 1 Un [place] 0.25 mcg 3-31 le} capsule by ity o f capsule 00:00: mouth 2 (two) Medical times Branch daily. calcitriol 2019-0 Yes 1{capsu Take 1 Un [place] 0.25 mcg 3-31 le} capsule by ity o f capsule 00:00: mouth 2 (two) Medical times Branch daily. calcitriol 2018- Yes 1{capsu Take 1 Un [place] 0.25 mcg 3-31 le} capsule by ity o f capsule 00:00: mouth 2 (two) Medical times Branch daily. calcitriol 2019- Yes 1{capsu Take 1 Un [place] 0.25 mcg 3-31 le} capsule by ity o f capsule 00:00: mouth 2 (two) Medical times Branch daily. calcitriol 2019-0 Yes 1{capsu Take 1 Un [place] 0.25 mcg 3-31 le} capsule by ity o f capsule 00:00: mouth 2 (two) Medical times Branch daily. calcitriol 2019- Yes 1{capsu Take 1 Un [place] 0.25 mcg 3-31 le} capsule by ity o f capsule 00:00: mouth 2 (two) Medical times Branch daily. Immunizations Ordered Filled Immunization Date Status Comments [facility] Immunization Name Name SARS-COV-2 COVID-19 2021-06-03 Completed Unive rsity of PFIZER VACCINE 00:00:00 [facility] SARS-COV-2 COVID-19 2020-12-20 Completed Unive rsity of PFIZER VACCINE 00:00:00 [facility] SARS-COV-2 COVID-19 2020-11-29 Completed Unive rsity of PFIZER VACCINE 00:00:00 [place] Medi karlo Branch Influenza Virus 2019-06-30 Completed Universit y of Vaccine Quad .5 mL 00:00:00 [facility] 6+ MO Branch Influenza Virus 2019-06-30 Completed Universit y of Vaccine Quad .5 mL 00:00:00 [facility] 6+ MO Branch Influenza Virus 2019-06-30 Completed Universit y of Vaccine Quad .5 mL 00:00:00 [facility] 6+ MO Branch Influenza Virus 2019-06-30 Completed Universit y of Vaccine [place] .5 mL 00:00:00 [facility] 6+ MO Branch Influenza Virus 2019-06-30 Completed Universit y of Vaccine Quad .5 mL 00:00:00 [facility] 6+ MO Branch Influenza Virus 2019-06-30 Completed Universit y of Vaccine [place] .5 mL 00:00:00 [facility] 6+ MO [facility] Influenza Virus 2019-06-30 Completed Universit y of Vaccine [place] .5 mL 00:00:00 [facility] 6+ MO [facility] Influenza Virus 2018-06-26 Completed [facility] 2018[facility] Com[facility] University of 00:00:00 [facility] Influenza Virus 2018-06-26 Completed Universit y of Vaccine 00:00:00 [facility] 2018-06-26 Completed University of 00:00:00 [facility] Influenza Virus 2018-06-26 Completed Universit y of Vaccine 00:00:00 [facility] 2018-06-26 Completed University of 00:00:00 [facility] Influenza Virus 2018-06-26 Completed Universit y of Vaccine 00:00:00 [facility] 2018-06-26 Completed University of 00:00:00 [facility] Influenza Virus 2018-06-26 Com[facility] 00[facility] Influenza Virus 2018-06-26 Completed [facility] University of 00:00:00 [facility] Influenza Virus 2018-06-26 Completed [facility] University of 00:00:00 [facility] Pneumococcal 2018-01-10 Completed University o f Polysaccharide, 00:00:00 [facility] PPSV23 (PNEUMOVAX) Branch Pneumococcal 2018-01-10 Completed University o f Polysaccharide, 00:00:00 [place] Med ical PPSV23 (PNEUMOVAX) Branch Pneumococcal 2018-01-10 Completed University o f Polysaccharide, 00:00:00 [place] Med ical PPSV23 (PNEUMOVAX) Branch Pneumococcal 2018-01-10 Completed University o f Polysaccharide, 00:00:00 [place] Med ical PPSV23 (PNEUMOVAX) Branch Pneumococcal 2018-01-10 Completed University o f Polysaccharide, 00:00:00 [place] Med ical PPSV23 (PNEUMOVAX) Branch Pneumococcal 2018-01-10 Completed University o f Polysaccharide, 00:00:00 [place] Med ical PPSV23 (PNEUMOVAX) Branch Pneumococcal 2018-01-10 Completed University o f Polysaccharide, 00:00:00 [place] Med ical PPSV23 (PNEUMOVAX) Branch Vital Signs Vital Name Observation Time Observation Value Comments Source Systolic blood 2020-04-24 18:12:00 165 mm[Hg] Univer sity of pressure [facility] Diastolic blood 2020-04-24 18:12:00 79 mm[Hg] Unive rsity of [facility] Heart rate 2020-04-24 18:12:00 80 /min [facility] Body temperature 2020-04-24 18:12:00 36.39 [facility] [facility] rate 2020-04-24 18:12:00 18 /min [facility] Body weight 2020-04-24 18:12:00 85.639 kg [facility] BMI 2020-04-24 18:12:00 31.42 kg/m2 [facility] Systolic blood 2020-04-24 18:12:00 165 mm[Hg] Univer sity of [facility] Diastolic blood 2020-04-24 18:12:00 79 mm[Hg] Unive rsity of pressure [facility] Heart rate 2020-04-24 18:12:00 80 /min [facility] Body temperature 2020-04-24 18:12:00 36.39 [place] [facility] Respiratory rate 2020-04-24 18:12:00 18 /min [facility] Body weight 2020-04-24 18:12:00 85.639 kg [facility] BMI 2020-04-24 18:12:00 31.42 kg/m2 Universi ty of [facility] Body weight 2020-03-08 16:49:00 80.2 kg Universi ty [facility] BMI 2020-03-08 16:49:00 29.42 kg/m2 Universi ty [facility] Oxygen saturation in 2020-03-08 16:49:00 98 /min [facility] Arterial blood by [facility] Pulse oximetry Branch Systolic blood 2020-03-08 16:49:00 152 mm[Hg] Univer sity of pressure [facility] Diastolic blood 2020-03-08 16:49:00 64 mm[Hg] Unive rsity of pressure [facility] Heart rate 2020-03-08 16:49:00 66 /min Universi ty [facility] Body temperature 2020-03-08 16:49:00 37.56 [place] Univ ersity [facility] Respiratory rate 2020-03-08 16:49:00 16 /min Univ ersity [facility] Procedures Procedure Date / Time Performed Performing Clinician Sour e SARS-COV-2 COVID-19 2021-06-03 15:08:41 Doctor Unassigned, No [facility] [place] VACCINE,0.3ML,IM Name [facility] (PFIZER) REFERRAL- 2020-04-01 05:01:00 Doctor Unassigned, No [facility]iver [facility] [place] REQUEST/RESPONSE Name Medical [facility] NOTICE OF PRIVACY 2020-03-08 16:41:31 Doctor Unassigned, No Univ [facility] [place] PRACTICES Name [facility] CONSENT/REFUSAL FOR 2020-03-08 16:41:08 Doctor Unassigned, No [facility] [place] DIAGNOSIS AND Name Medical [facility] TREATMENT EXTERNAL PROVIDER 2019-12-03 06:01:00 Doctor Unassigned, No Univ [facility] [place] RECORDS Name [facility] Encounters Start End Encounter Admission Attending Care Care Encounter Source Date/Time Date/Time Type Type Clinicians Facility Department ID 2021-07-30 Emergency [facility] [id number] [facility] 23:49:48 ity of [facility] 2021-08-18 2021-08-18 Outpatient CHARO [facility] [id number] [place] 00:00:00 00:00:00 NELLIE [address] 2021-06-03 2021-06-03 Outpatient R JACY [facility] [id number] Univers 11:30:00 11:30:00 OZZIE itautumn [facility] 2021-06-03 2021-06-03 Imm/Inj Nurse, Adc Pob Immunization [facility] [id number] [facility] 10:04:54 10:05:08 Visit Ozzie Walsh Josediego Paez [id number] .10 [facility] [id number] Melchor Mantilla [phone] Sd dical [address] 2021-05-18 2021-05-18 Outpatient MANCILLA, [facility] [id number] [place] 00:00:00 00:00:00 NELLIE 481 Method i 2021-05-18 2021-05-18 Outpatient MANCILLA, [facility] [id number] [place] 00:00:00 00:00:00 NELLIE 496 Method i 2021-05-11 2021-05-11 Outpatient MANCILLA, [facility] [id number] [place] 00:00:00 00:00:00 NELLIE 295 Method i 2021-05-04 2021-05-04 Outpatient MANCILLA, [facility] [id number] [place] 00:00:00 00:00:00 NELLIE 527 Method i 2021-04-27 2021-04-27 Outpatient MANCILLA, [facility] [id number] [place] 00:00:00 00:00:00 NELLIE 965 Method i 2021-04-17 2021-04-22 Inpatient BARTRA, [facility] 064 [id number] [place] 00:00:00 00:00:00 RHETT 856 Method i 2021-03-27 2021-04-02 Inpatient URIEL, ITI [facility] 012 [id number] [place] 00:00:00 00:00:00 351 Method i 2020-12-20 2020-12-20 Outpatient [facility] [id number] Univers 10:40:00 10:40:00 ity [facility] 2020-11-29 2020-11-29 Outpatient [facility] [id number] Univers 10:55:00 10:55:00 ity [facility] 2020-08-07 2020-08-07 Outpatient DELAFLOR-SA [facility] [id number] [place] 00:00:00 00:00:00 ERICANA, 542 Method i CRISTÓBAL 2020-07-22 2020-08-01 Inpatient MCCARTAN, [facility] [id number] [place] 00:00:00 00:00:00 SAWYER 835 Method i 2020-04-24 2020-04-24 [facility] [id number] 13:04:48 13:52:13 Visit Heide Paez [id number] [place] [id number] Professio [phone] nal [address] [place] [address] 2020-04-24 2020-04-24 Office [facility] [id number] Univers 13:04:48 13:52:13 Visit Heide Paez [id number] i ty of [place] [id number] [place] Profess[place] [id number] Sd dical [address] 2020-04-24 2020-04-24 [facility] [id number] Univers 13:30:00 13:30:00 [facility] [id number] [facility] 2020-04-24 2020-04-24 [facility] [id number] Univers 13:30:00 13:30:00 HEIDE [facility] 2020-04-10 2020-04-10 [facility] [id number] Univers 15:45:00 15:45:00 [facility] 2020-04-01 2020-04-01 Orders Doctor KARINA [id number] Univers 00:00:00 00:00:00 Only Unassigned, KIMBERLY [id number] ity of [facility] [id number] Nikita as [id number] [address] 2020-03-08 2020-03-08 Emergency [facility] [id number] Univers 11:51:26 13:17:00 Melisa Paez [id number] ity of [place] [id number] [place] [facility] [phone] [facility] 084 Branch 2020-03-08 2020-03-08 Orders Doctor KARINA [id number] Univers 00:00:00 00:00:00 Only Unassigned, KIMBERLY [id number] ity of [facility] [id number] Nikita as [phone] [facility] 009 Branch 2019-12-03 2019-12-03 Orders Doctor KARINA [id number] Univers 00:00:00 00:00:00 Only Unassigned, KIMBERLY [id number] ity of [facility] [id number] Nikita as [phone] [address] Results Test Description Test Time Test Comments Results Result Comments Source SARS-CoV-2 (COVID-19) RNA [Presence] in Respiratory sp ecimen by 2021-03-28 03:28:22 FRANCIE with probe detection Test Item Value Reference Range Interpretation Comme nts SARS-CoV-2 (COVID-19) RNA [Presence] in Respiratory Not detected No t-Detected specimen by FRANCIE with probe detection (test code = 00494-8) Whether patient is employed in a healthcare setting (test code = 81453-4) Whether the patient has symptoms related to condition of interest (test code = 03223-1) Patient was hospitalized because of this condition (test code = 69190-9) Whether the patient was admitted to intensive care unit (ICU) for condition of interest (test code = 65442-0) Whether patient resides in a congregate care setting (test code = 80954-5) SARS-CoV-2 (COVID-19) RNA [Presence] in Respiratory specimen by FRANCIE with probe [id number] 21:30:13 Test Item Value Reference Range Interpretation Comments SARS-CoV-2 (COVID-19) RNA Not detected Not-Detected [Presence] in Respiratory specimen by FRANCIE with probe detection (test code = 90631-0)
[2021-08-25] MEDS ORDERED: MORPHINE 2 MG/ML SYR ONE ×3 (01:42→05:06)
[2021-08-25] MEDS ORDERED: FAMOTIDINE 20 MG/2 ML VIAL IV ONE (01:43)
[2021-08-25] MEDS ORDERED: ONDANSETRON 4 MG/2 ML VIAL ONE (01:43)
[2021-08-25] MEDS ORDERED: NA CHLORIDE 0.9% 1,000 ML ONE (01:43)
[2021-08-25 02:16] LABS: Protime INR 1.05
[2021-08-25 02:17] LABS: Absolute Lymphocytes (CBC) 0.5 K/uL (0.7-4.9); Basophils % 0.6 % (0-1.3); Hematocrit 27.8 % (36.0-45.0); Lymphocytes % 5.8 % (15.3-44.8); MPV 9.6 fL (7.6-11.3); RBC Red Blood Cell Count 2.94 M/uL (3.86-4.86)
[2021-08-25 02:45] LABS: Albumin 2.7 g/dL (3.4-5.0); Bilirubin Direct 0.1 mg/dL (0-0.2); Bilirubin Total 0.6 mg/dL (0.2-1.0); Potassium 3.6 mmol/L (3.5-5.1); Protein, Total 7.3 g/dL (6.4-8.2); Troponin (Emerg Dept Use Only) 0.09 ng/mL (0.0-0.045)
[2021-08-25 02:47] LABS: Magnesium 3.8 mg/dL (1.8-2.4)
--- NOTE | 2021-08-25 02:50 | EDPHYS ---
Physician Documentation [facility] Name: Enma Bolden Age: 61 yrs Sex: Female : 1960 Arrival Date: 08/25/2021 Time: 00:30 Bed 7 Private MD: Migel Mariscal HPI: 08/25 01:53 This 61 yrs old Female presents to ER via Wheelchair with complaints of arnol Abdominal Pain. 01:53 The patient presents with abdominal pain in the upper abdomen, in the lower abdomen. arnol Onset: The symptoms/episode began/occurred just prior to arrival. The patient presents to the emergency department with nausea, vomiting, diarrhea, abdominal pain, of the right upper quadrant, left upper quadrant, right lower quadrant and left lower quadrant. Onset: The symptoms/episode began/occurred just prior to arrival. Possible causes: unknown. The symptoms are aggravated by nothing. The symptoms are alleviated by nothing. Associated signs and symptoms: The patient has no apparent associated signs or symptoms. The symptoms do not radiate. Associated signs and symptoms: Pertinent positives: nausea and vomiting, diarrhea. Modifying factors: The symptoms are alleviated by nothing, remaining still, the symptoms are aggravated by breathing deeply, movement, pressure, walking. Historical: - Allergies: 01:30 Lisinopril; bb 01:30 Sulfa (Sulfonamide Antibiotics); bb - PMHx: 01:30 Dialysis; Hypertension; bb - PSHx: 01:30 hysterectomy; peritoneal dialysis catheter; Knee; Ovaries; bb - Immunization history:: Adult Immunizations up to date, Client reports receiving the 2nd dose of the Covid vaccine. - Social history:: Smoking status: unknown. - Family history:: not pertinent. ROS: 01:53 Constitutional: Negative for fever, chills, and weight loss, Eyes: Negative for injury, arnol pain, redness, and discharge, ENT: Negative for injury, pain, and discharge, Neck: Negative for injury, pain, and swelling, Cardiovascular: Negative for chest pain, palpitations, and edema, Respiratory: Negative for shortness of breath, cough, wheezing, and pleuritic chest pain, Back: Negative for injury and pain, : Negative for injury, bleeding, discharge, and swelling, MS/Extremity: Negative for injury and deformity, Skin: Negative for injury, rash, and discoloration, Neuro: Negative for headache, weakness, numbness, tingling, and seizure, Psych: Negative for depression, anxiety, suicide ideation, homicidal ideation, and hallucinations, Allergy/Immunology: Negative for hives, rash, and allergies, Endocrine: Negative for neck swelling, polydipsia, polyuria, polyphagia, and marked weight changes. 01:53 Abdomen/GI: Positive for abdominal pain, nausea and vomiting, diarrhea, of the right upper quadrant, left upper quadrant, right lower quadrant and left lower quadrant. Exam: 01:55 Constitutional: This is a well developed, well nourished patient who is awake, alert, arnol and in no acute distress. Head/Face: Normocephalic, atraumatic. Eyes: Pupils equal round and reactive to light, extra-ocular motions intact. Lids and lashes normal. Conjunctiva and sclera are non-icteric and not injected. Cornea within normal limits. Periorbital areas with no swelling, redness, or edema. ENT: Nares patent. No nasal discharge, no septal abnormalities noted. Tympanic membranes are normal and external auditory canals are clear. Oropharynx with no redness, swelling, or masses, exudates, or evidence of obstruction, uvula midline. Mucous membranes moist. Neck: Trachea midline, no thyromegaly or masses palpated, and no cervical lymphadenopathy. Supple, full range of motion without nuchal rigidity, or vertebral point tenderness. No Meningismus. Chest/axilla: Normal chest wall appearance and motion. Nontender with no deformity. No lesions are appreciated. Cardiovascular: Regular rate and rhythm with a normal S1 and S2. No gallops, murmurs, or rubs. Normal PMI, no JVD. No pulse deficits. Respiratory: Lungs have equal breath sounds bilaterally, clear to auscultation and percussion. No rales, rhonchi or wheezes noted. No increased work of breathing, no retractions or nasal flaring. Back: No spinal tenderness. No costovertebral tenderness. Full range of motion. Female : Normal external genitalia. Skin: Warm, dry with normal turgor. Normal color with no rashes, no lesions, and no evidence of cellulitis. MS/ Extremity: Pulses equal, no cyanosis. Neurovascular intact. Full, normal range of motion. Neuro: Awake and alert, GCS 15, oriented to person, place, time, and situation. Cranial nerves II-XII grossly intact. Motor strength 5/5 in all extremities. Sensory grossly intact. Cerebellar exam normal. Normal gait. Psych: Awake, alert, with orientation to person, place and time. Behavior, mood, and affect are within normal limits. 01:55 ECG was reviewed by the Attending Physician. 01:55 Abdomen/GI: Inspection: distension, that is moderate, Bowel sounds: active, Palpation: moderate abdominal tenderness, in the right upper quadrant and left upper quadrant, Liver: no appreciated palpable abnormalities, Hernia: not appreciated. Vital Signs: 01:28 BP 153 / 70; Pulse 64; Resp 18 S; Temp 97.6(O); Pulse Ox 99% on R/A; Weight 81.65 kg bb (R); Height 5 ft. 5 in. (165.10 cm) (R); Pain 10/10; 02:32 BP 106 / 65; Pulse 72; Resp 18; Pulse Ox 95% on R/A; df1 05:34 BP 147 / 55; Pulse 75; Resp 18; Pulse Ox 96% on 2 lpm NC; df1 01:28 Body Mass Index 29.95 (81.65 kg, 165.10 cm) bb MDM: 01:24 Patient medically screened. arnol 01:58 Differential diagnosis: Nonspecific abd pain, gastritis, cholecystitis, pancreatitis, arnol viral gastroenteritis, gastroenteritis, AAA, appendicitis, bowel obstruction, cholecystitis, Cholelithiasis, diverticulitis, gastritis, gastroesophageal reflux disease, Irritable bowel syndrome, non-specific abd pain, pancreatitis, Perf. Duodenal Ulcer, Pyelonephritis, Ureterolithiasis. Data reviewed: vital signs, nurses notes, lab test result(s), EKG, radiologic studies, CT scan, plain films. Data interpreted: contact lens polisher: rate is 64 beats/min, rhythm is regular. Test interpretation: by ED physician or midlevel provider: ECG, plain radiologic studies. Counseling: I had a detailed discussion with the patient and/or guardian regarding: the historical points, exam findings, and any diagnostic results supporting the discharge/admit diagnosis, lab results, radiology results, the need for further work-up and treatment in the hospital. 08/25 01: Order name: Basic Metabolic Panel [facility] 08/25 01: Order name: CBC with Diff [facility] 08/25 01: Order name: LFT's; Complete Time: 02:49 [facility] 08/25 01:28 Order name: Magnesium; Complete Time: 02:49 [facility] 08/25 01:28 Order name: NT PRO-BNP; Complete Time: 02:49 [facility] 08/25 01:28 Order name: PT-INR; Complete Time: 02:29 [facility] 08/25 01:28 Order name: Troponin (emerg Dept Use Only); Complete Time: 02:49 [facility] 08/25 01:28 Order name: Lipase; Complete Time: 02:49 [facility] 08/25 01:28 Order name: Blood Culture Adult (2) [facility] 08/25 01:28 Order name: Lactate; Complete Time: 02:29 [facility] 08/25 01:28 Order name: Basic Metabolic Panel; Complete Time: 02:49 [facility] 08/25 01:28 Order name: CBC with Automated Diff; Complete Time: 03:00 [facility] 08/25 01:52 Order name: SARS-COV-2 RT PCR (Document "Date of Onset" if Symptomatic); Complete Time: [facility] 03:08/25 02:18 Order name: Manual Differential; Complete Time: 03:00 [facility] 08/25 01:28 Order name: XRAY Chest (1 view) [facility] 08/25 01:28 Order name: EKG; Complete Time: 01:28 [facility] 08/25 01:28 Order name: Cardiac monitoring; Complete Time: 01:58 [facility] 08/25 01:28 Order name: EKG - Nurse/Tech; Complete Time: 01:58 [facility] 08/25 01:52 Order name: CT Abd/Pelvis - Without Contrast [facility] 08/25 04:57 Order name: Procalcitonin la 08/25 07:26 Order name: Procalcitonin; Complete Time: 07:52 [facility] 08/25 07:37 Order name: Procalcitonin; Complete Time: 07:52 [facility] 08/25 07:44 Order name: Glucose, Ancillary Testing; Complete Time: 07:52 [facility] 08/25 01:28 Order name: IV Saline Lock; Complete Time: 01:57 [facility] 08/25 01:28 Order name: Labs collected and sent; Complete Time: 01:57 [facility] 08/25 01:28 Order name: O2 Per Protocol; Complete Time: 01:57 [facility] 08/25 01:28 Order name: O2 Sat Monitoring; Complete Time: 02:03 arnol EC:55 Rate is 70 beats/min. Rhythm is regular. QRS [place] is Normal. NV interval is normal. QRS arnol interval is normal. QT interval is normal. No Q waves. T waves are Normal. No ST changes noted. Clinical impression: No evidence of ischemia. Interpreted by me. Reviewed by me. Administered Medications: 01:54 Drug: Zofran (Ondansetron) 2 mg Route: IVP; Site: right antecubital; tw5 05:34 Follow up: Response: Nausea is decreased df1 01:57 Drug: Pepcid (famotidine) 20 mg Route: IVP; Site: right antecubital; tw5 05:33 Follow up: Response: No adverse reaction df1 01:57 Drug: NS 0.9% 1000 ml Route: IV; Rate: 75 ml/hr; Site: right antecubital; tw5 02:02 Drug: morphine 2 mg Route: IVP; Site: right antecubital; tw5 05:33 Follow up: Response: Pain is decreased df1 05:32 Drug: Clindamycin 900 mg Route: IVPB; Infused Over: 30 mins; Site: right antecubital; df1 06:08 Follow up: IV Status: Completed infusion; IV Intake: 50ml df1 05:33 Drug: morphine 2 mg Route: IVP; Site: right antecubital; df1 06:08 Follow up: Response: Pain is decreased df1 06:08 Drug: Cipro (ciprofloxacin) 400 mg Volume: 200 ml; Route: IVPB; Infused Over: 60 mins; df1 Site: left antecubital; Disposition Summary: 08/25/21 02:49 Hospitalization Ordered Hospitalization Status: Observation arnol Provider: Bo Kinsey arnol Condition: Fair arnol Problem: new arnol Symptoms: have improved arnol Bed/Room Type: Standard arnol Location: Telemetry/MedSurg (observation)(08/25/21 07:29) bd Room Assignment: 410(08/25/21 07:29) bd Diagnosis - End stage renal disease - on PD arnol - Abdominal pain, Generalized arnol - Systolic (congestive) heart failure arnol - Cardiomegaly arnol - Anemia, unspecified arnol - Bandemia arnol Forms: - Medication Reconciliation Form arnol - SBAR form arnol Signatures: Dispatcher [employer] EDMS Chana Karimi Corey, MD MD cha Ballard, Gena, RN RN bb Jona Beltran, OAKES MACHINE OPERATOR-C OAKES MACHINE OPERATOR-Cla1 Nicci Sanabria df1 Jana Soria 5 Corrections: (The following items were deleted from the chart) 03:34 02:49 Telemetry/MedSurg (observation) arnol mann 03:34 02:49 [facility] mann 07:29 03:34 [facility] ER [facility] bd 07:29 03:34 [facility]
--- NOTE | 2021-08-25 02:50 | ER ---
Nurse's Notes [facility] Name: Enma Bolden Age: 61 yrs Sex: Female : 1960 Arrival Date: 08/25/2021 Time: 00:30 Bed 7 Private MD: Diagnosis: End stage renal disease-on PD;Abdominal pain, Generalized;Systolic (congestive) heart failure;Cardiomegaly;Anemia, unspecified;Bandemia Presentation: 08/25 01:28 Chief complaint: Patient states: she is having severe abdominal pain she does bb peritoneal dialysis but was unable to do it last night. Coronavirus screen: At this time, the client does not indicate any symptoms associated with coronavirus-19. Ebola Screen: No symptoms or risks identified at this time. Initial Sepsis Screen: Does the patient meet any 2 criteria? No. Patient's initial sepsis screen is negative. Does the patient have a suspected source of infection? No. Patient's initial sepsis screen is negative. Risk Assessment: Do you want to hurt yourself or someone else? Patient reports no desire to harm self or others. Onset of symptoms was August 24, 2021. 01:28 Method Of Arrival: Wheelchair bb 01:28 Acuity: JOSE 2 bb Triage Assessment: 02:01 General: Appears uncomfortable, Behavior is calm, cooperative, appropriate for age. tw5 Historical: - Allergies: 01:30 Lisinopril; bb 01:30 Sulfa (Sulfonamide Antibiotics); bb - PMHx: 01:30 Dialysis; Hypertension; bb - PSHx: 01:30 hysterectomy; peritoneal dialysis catheter; Knee; Ovaries; bb - Immunization history:: Adult Immunizations up to date, Client reports receiving the 2nd dose of the Covid vaccine. - Social history:: Smoking status: unknown. - Family history:: not pertinent. Screenin:00 Abuse screen: Denies threats or abuse. Denies injuries from another. Nutritional tw5 screening: No deficits noted. Tuberculosis screening: No symptoms or risk factors identified. Fall Risk Fall in past 12 months (25 points). Secondary diagnosis (15 points) IV access (20 points). Ambulatory Aid- None/Bed Rest/Nurse Assist (0 pts). Gait- Weak (10 pts.). Mental Status- Oriented to own ability (0 pts). Assessment: 01:58 Pain: Pain currently is 12 out of 10 on a pain scale. Noted to be grimacing, guarding, tw5 moaning. 01:58 General: Reports " I was going to start dialysis when the machine kept giving me an tw5 error message ' check patient line'." Around 10 pm this evening patient stated she started having severe diarrhea, abdominal pain, and vomiting. Cardiovascular: Rhythm is regular. GI: Abdomen is noted to have ascites, Bowel sounds diminished in right upper quadrant, left upper quadrant, right lower quadrant and left lower quadrant Abdomen is tender to palpation X 4 quads. Vital Signs: 01:28 BP 153 / 70; Pulse 64; Resp 18 S; Temp 97.6(O); Pulse Ox 99% on R/A; Weight 81.65 kg bb (R); Height 5 ft. 5 in. (165.10 cm) (R); Pain 10/10; 02:32 BP 106 / 65; Pulse 72; Resp 18; Pulse Ox 95% on R/A; df1 05:34 BP 147 / 55; Pulse 75; Resp 18; Pulse Ox 96% on 2 lpm NC; df1 01:28 Body Mass Index 29.95 (81.65 kg, 165.10 cm) bb ED Course: 00:30 Patient arrived in ED. bp1 01:24 Migel Greco MD is Attending Physician. arnol 01:25 Nicci Sanabria is Primary Nurse. df1 01:30 Triage completed. bb 01:30 Arm band placed on Patient placed in an exam room, on a stretcher, on pulse oximetry. bb Family accompanied patient. 01:53 Inserted saline lock: 20 gauge in right antecubital area, using aseptic technique. tw5 Blood collected. 01:53 Initial lab(s) drawn, by ED staff, sent to lab. First set of blood cultures drawn by ED tw5 staff. 01:53 EKG done, by ED staff, reviewed by Migel Greco MD. 01:57 Basic Metabolic Panel Sent. 01:57 CBC with Automated Diff Sent. 01:57 Lactate Sent. 01:57 Blood Culture Adult (2) Sent. 01:57 SARS-COV-2 RT PCR (Document "Date of Onset" if Symptomatic) Sent. 01:57 Lipase Sent. 01:57 Basic Metabolic Panel Sent. tw5 01:58 LFT's Sent. tw5 01:58 Magnesium Sent. tw5 01:58 NT PRO-BNP Sent. tw5 01:58 PT-INR Sent. tw5 01:58 Troponin (emerg Dept Use Only) Sent. tw5 01:58 CBC with Diff Sent. tw5 02:00 Patient has correct armband on for positive identification. Placed in gown. Bed in low tw5 position. Call light in reach. Side rails up X 1. hospital mortician on. Pulse ox on. NIBP on. Door closed. Noise minimized. Lights dimmed. Warm blanket given. Verbal reassurance given. 02:00 Inserted saline lock: 20 gauge in left antecubital area, using aseptic technique. Blood tw5 collected. 02:01 Second set of blood cultures drawn by ED staff. tw5 02:02 CBC with Automated Diff Sent. tw5 02:02 Basic Metabolic Panel Sent. tw5 02:02 Lactate Sent. tw5 02:08 SARS-COV-2 RT PCR (Document "Date of Onset" if Symptomatic) Sent. df1 02:08 Blood Culture Adult (2) Sent. df1 02:08 Lipase Sent. df1 02:08 LFT's Sent. df1 02:08 Magnesium Sent. df1 02:08 NT PRO-BNP Sent. df1 02:08 Troponin (emerg Dept Use Only) Sent. df1 02:08 PT-INR Sent. df1 02:08 XRAY Chest (1 view) Sent. df1 02:10 XRAY Chest (1 view) In Process Unspecified. EDMS 02:32 CT Abd/Pelvis - Without Contrast In Process Unspecified. EDMS 02:46 Bo Kinsey DO is Hospitalizing Provider. [facility] 02:46 Notified ED physician of a critical lab result(s). Creatinine of 14.4, mag of 3.8 Dr mann Greco notified. 05:35 No provider procedures requiring assistance completed. df1 Administered Medications: 01:54 Drug: Zofran (Ondansetron) 2 mg Route: IVP; Site: right antecubital; tw5 05:34 Follow up: Response: Nausea is decreased df1 01:57 Drug: Pepcid (famotidine) 20 mg Route: IVP; Site: right antecubital; tw5 05:33 Follow up: Response: No adverse reaction df1 01:57 Drug: NS 0.9% 1000 ml Route: IV; Rate: 75 ml/hr; Site: right antecubital; tw5 02:02 Drug: morphine 2 mg Route: IVP; Site: right antecubital; tw5 05:33 Follow up: Response: Pain is decreased df1 05:32 Drug: Clindamycin 900 mg Route: IVPB; Infused Over: 30 mins; Site: right antecubital; df1 06:08 Follow up: IV Status: Completed infusion; IV Intake: 50ml df1 05:33 Drug: morphine 2 mg Route: IVP; Site: right antecubital; df1 06:08 Follow up: Response: Pain is decreased df1 06:08 Drug: Cipro (ciprofloxacin) 400 mg Volume: 200 ml; Route: IVPB; Infused Over: 60 mins; df1 Site: left antecubital; Intake: 06:08 IV: 50ml; Total: 50ml. df1 Outcome: 02:49 Decision to Hospitalize by Provider. arnol 10:35 Patient left the ED. jd3 Signatures: Dispatcher [employer] EDMigel Buitrago MD MD cha Ballard, Brenda RN RN Rajan Donovan RN RN jBarbara Bledsoe Dawn df1 Jana Soria tw5
[2021-08-25 02:51] LABS: Blood Morphology Comment NOT SEEN (NOT SEEN); Platelet Estimate ADEQ
[2021-08-25] MEDS ORDERED: CLINDAMYCIN 900MG/D5W 900 MG/50 ML IVPB IV ONE (05:06)
[2021-08-25] MEDS ORDERED: CIPROFLOXACIN 400mg IV 400 MG/200 ML BAG IV ONE (05:06)
--- NOTE | 2021-08-25 05:11 | P.HP ---
Certification for Inpatient Patient admitted to: Inpatient With expected LOS: >2 Midnights Patient will require the following post-hospital care: None Practitioner: I am a practitioner with admitting privileges, knowledge of patient current condition, hospital course, and medical plan of care. Services: Services provided to patient in accordance with Admission requirements found in Title 42 Section 412.3 of the Code of Federal Regulations Patient History Date of Service: 08/25/21 Primary Care Provider: Dr. Herndon Reason for admission: Peritonitis History of Present Illness: 61-year-old female with history of ESRD on PD, hypertension, diabetes mellitus type 2diet controlled presents emergency department for generalized weakness, malaise and abdominal pain and dysfunction of her peritoneal dialysis catheter. Patient reports she is had the symptoms for last 2 days. Patient was evaluated in the emergency department labs were significant for white blood cell count 8 hemoglobin 9.0 hematocrit 27.8 left shift noted BUN 100 creatinine 14.4 GFR 3 glucose 159 magnesium 3.8 lactic acid 1.0 troponin 0.09 BNP 53,[address] abdomen pelvis without contrast demonstrates small free fluid in the lower abdomen and pelvis with mesenteric stranding which could be related to peritoneal dialysis use although underlying peritoneal infection not completely excluded. Incomplete imaging of small bilateral pleural effusion, anterior abdominal inflammatory changes around the catheter on the left suspicious for infection, 2 cm right middle lobe pulmonary nodule recommend prompt noncontrast CT chest for further evaluation. General surgery was contacted and came to bedside to evaluate patient, agree there is possibly peritonitis recommend IV antibiotics and consult with nephrology. Attempts were made to reach out to nephrology but answering service not available, will continue to reach out to them and admit patient for further evaluation and management of possible bacterial peritonitis secondary to peritoneal dialysis catheter infection/complication Allergies lisinopril Allergy (Mild, Verified 05/15/21 08:23) Hives/Rash Sulfa (Sulfonamide Antibiotics) Allergy (Verified 05/15/21 08:23) Nausea/vomiting/weakness Home Medications: Amlodipine [Norvasc] 10 mg PO DAILY 02/18/21 Calcium Acetate [Phoslo] 1 cap PO TIDWM 02/18/21 Cholecalciferol (Vitamin D3) [Vitamin D 5,000 Iu Cap] 5,000 unit PO DAILY 02/18/21 Doxazosin [Cardura] 4 mg PO SEECOM 02/18/21 Furosemide [Lasix] 80 mg PO BID 02/18/21 - Past Medical/Surgical History -: ESRD on PD -: Hypertension -: Diabetes type 2diet controlled -: Ovarian cyst removal -: Hysterectomy -: Right knee surgery -: Left toe amputations Psychosocial/ Personal History: Patient is unemployed, lives at home with her - Family History Mother -: Heart disease, Hypertension, Diabetes Father -: Hypertension - Social History Smoking Status: Never smoker Alcohol use: No CD- Drugs: No Caffeine use: Yes Place of Residence: Home Review of Systems 10-point ROS is otherwise unremarkable General: Weakness, Malaise Gastrointestinal: Nausea, Vomiting, Abdominal Pain, Diarrhea Physical Examination - Physical Exam General: Alert, In no apparent distress, Oriented x3 HEENT: Atraumatic, PERRLA, Mucous membr. moist/pink, EOMI, Sclerae nonicteric Neck: Supple, 2+ carotid pulse no bruit, No LAD, Without JVD or thyroid abnormality Respiratory: Clear to auscultation bilaterally, Normal air movement Cardiovascular: Regular rate/rhythm, Normal S1 S2 Gastrointestinal: Tenderness (Moderate generalized abdominal tenderness, peritoneal dialysis catheter in place with dressing intact no surrounding cellulitis or purulent drainage) Musculoskeletal: No tenderness Integumentary: No rashes Neurological: Normal speech, Normal strength at 5/5 x4 extr, Normal tone, Normal affect - Studies Laboratory Data (last 24 hrs) 08/25/21 01:50: PT 12.1, INR 1.05 08/25/21 01:50: WBC 8.00, Hgb 9.0 L, Hct 27.8 L, Plt Count 152 08/25/21 01:50: Sodium 139, Potassium 3.6, BUN 100 H, Creatinine 14.40 H*, Glucose 159 H, Magnesium 3.8 H*, Total Bilirubin 0.6, AST 10 L, ALT 14, Alkaline Phosphatase 144 H, Lipase 74 Assessment and Plan - Plan Assessment: Abdominal tenderness, peritoneal dialysis catheter complication secondary to suspected catheter related infection/peritonitis ESRD on PD with moderate volume overload Diabetes mellitus type 2diet controlled Hypertension Abnormal CT chest 2 cm right middle lobe pulmonary nodule Plan: Abdominal tenderness, peritoneal dialysis catheter complication secondary to suspected catheter related infection/peritonitis: Patient was seen and evaluated by general surgery at bedside, nephrology has been contacted. Patient was started on clindamycin/Cipro in the emergency department to cover for possible peritoneal dialysis catheter infection/complication. Patient family bringing in peritoneal dialysis machine, patient may require temporary alternative hemodialysis access during hospitalization if there are further complications with peritoneal dialysis catheter or if nephrology recommends this to allow treatment of suspected infection. Appreciate further input from general surgery and nephrology. ESRD on PD with moderate volume overload: Patient will require dialysis during hospitalization this treatment to be further managed by nephrology. Diabetes mellitus type 2diet controlled: We will obtain A1c blood sugar 159 at this time we will keep patient on ADA diet and provide sliding scale insulin as necessary. Hypertension: Obtain and continue medication Abnormal CT chest 2 cm right middle lobe pulmonary nodule: Radiology recommends prompt CT without contrast for further evaluation this can be done either later thought admission or with primary care doctor, patient made aware of findings. DVT PPX: Heparin Code status: Full code Discharge Plan: Home Plan to discharge in: Greater than 2 days - Advance Directives Does patient have a Living Will: No Does patient have a Durable POA for Healthcare: No - Code Status/Comfort Care Code Status Assessed: Yes (Full code) Critical Care: No Time Spent Managing Pts Care (In Minutes): 55
[2021-08-25] MEDS ORDERED: ONDANSETRON 4 MG/2 ML VIAL IV PRN (06:07)
[2021-08-25] MEDS ORDERED: ACETAMINOPHEN 500 MG TAB PO PRN (06:07)
--- NOTE | 2021-08-25 06:08 | P.PN ---
Subjective Date of Service: 08/25/21 Primary Care Provider: Dr. Herndon Chief Complaint: Peritonitis Subjective: Improving (Less pain noted to the abdomen) Physical Examination - Studies Laboratory Data (last 24 hrs) 08/25/21 01:50: PT 12.1, INR 1.05 08/25/21 01:50: WBC 8.00, Hgb 9.0 L, Hct 27.8 L, Plt Count 152 08/25/21 01:50: Sodium 139, Potassium 3.6, BUN 100 H, Creatinine 14.40 H*, Glucose 159 H, Magnesium 3.8 H*, Total Bilirubin 0.6, AST 10 L, ALT 14, Alkaline Phosphatase 144 H, Lipase 74 Assessment & Plan Discharge Plan: Home Plan to discharge in: 24 Hours Physician Review Additional Text: COVID: negative CT scan: CT abdomen pelvis without contrast demonstrates small free fluid in the lower abdomen and pelvis with mesenteric stranding which could be related to peritoneal dialysis use although underlying peritoneal infection not completely excluded. Incomplete imaging of small bilateral pleural effusion, anterior abdominal inflammatory changes around the catheter on the left suspicious for infection, 2 cm right middle lobe pulmonary nodule recommend prompt noncontrast CT chest for further evaluation. Physical exam: General: Alert, In no apparent distress, Oriented x3 HEENT: Neck supple Respiratory: Clear to auscultation bilaterally, Normal air movement Cardiovascular: Regular rate/rhythm, Normal S1 S2 Gastrointestinal: Pain to the abdomen improved. Peritoneal dialysis in place. No cellulitis noted Musculoskeletal: No tenderness Integumentary: No rashes Neurological: Normal speech, Normal strength at 5/5 x4 extr, Normal tone, Normal affect Impression: Abdominal pain suspect peritonitis complicated with peritoneal dialysis catheter ESRD on PD Diabetes mellitus type 2diet controlled Hypertension Abnormal CT chest 2 cm right middle lobe pulmonary nodule Plan: Abdominal pain suspect peritonitis complicated with peritoneal dialysis catheter: Patient improved. Case discussed at length with nephrology. Peritoneal dialysis catheter was working last night. Peritoneal dialysis catheter to be reevaluated today. Nephrology plans to discontinue clindamycin and Cipro. This is changed to IV Zosyn and vancomycin. If peritoneal dialysis catheter working and symptoms significantly improved, nephrology recommends possible discharge as early as today with Levaquin 250 mg every other day for 14 days. If the patient is to be discharged nephrology recommends to give 500 mg of vancomycin prior to discharge. If there is some dysfunction with peritoneal dialysis then will need to get in contact with surgery to evaluate. Surgery did evaluate catheter last night and it was working properly. We will continue to monitor and assess. Will reassess later today for possible early discharge. ESRD on PD: Patient to restart peritoneal dialysis. Continue with above plan of care.. Diabetes mellitus type 2diet controlled: Continue Accu-Cheks and sliding scale. Will monitor closely. Hypertension: Continue with home medication. Will monitor and adjust appropriately. Abnormal CT chest 2 cm right middle lobe pulmonary nodule: Patient is seen by pulmonology as an outpatient. Recommend follow-up with pulmonology as an outpatient to further address. Patient will likely require repeat CT scan. DVT PPX: Heparin Code status: Full code Discharge Plan: Home at discharge Time Spent Managing Pts Care (In Minutes): 55
[2021-08-25] MEDS: INSULIN -REGULAR HUMAN 50 UNIT/0.5 ML ML SQ SCH ×4 (07:30→21:00)
--- NOTE | 2021-08-25 08:44 | RAD REPORT ---
EXAM DESCRIPTION: Abraham Single View08/25/2021 2:10 am CLINICAL HISTORY: Cough COMPARISON: August 10, 2021 FINDINGS: Small bilateral pleural effusions with right basilar atelectasis Heart is moderately enlarged.
[2021-08-25] MEDS ORDERED: HEPARIN 5000 UNIT/ML 1 ML VIAL ONE (08:57)
[2021-08-25] MEDS: HEPARIN 5000 UNIT/ML 1 ML VIAL SQ SCH ×2 (09:00→22:12)
[2021-08-25] MEDS ORDERED: CIPROFLOXACIN 400mg IV 400 MG/200 ML BAG IV SCH (09:00)
[2021-08-25] MEDS ORDERED: FUROSEMIDE 40 MG/4 ML VIAL IV ONE (09:30)
[2021-08-25] MEDS: PIPER TAZO 2.25 GM in NA CHLORIDE 0.9% 50 ML IV SCH ×3 (09:31→17:23)
[2021-08-25] MEDS ORDERED: EPOETIN ALFA-EPBX 10,000 UNIT/ML VIAL SQ ONE (10:00)
[2021-08-25 10:21] VITALS: BMI 32.7
[2021-08-25] MEDS ORDERED: ACETAMINOPHEN 500 MG TAB ONE (10:22)
[2021-08-25] MEDS ORDERED: PIPERACIL/TAZO 2.25 GM VIAL IV ONE (10:22)
[2021-08-25] MEDS ORDERED: FUROSEMIDE 40 MG/4 ML VIAL ONE (10:22)
[2021-08-25] MEDS ORDERED: NA CHLORIDE 0.9% 100 ML ONE (10:22)
[2021-08-25] MEDS ORDERED: VANCOMYCIN 1 GM in NA CHLORIDE 0.9% 250 ML IVPB ONE (10:30)
[2021-08-25] MEDS ORDERED: CLINDAMYCIN INJ 600 MG in NA CHLORIDE 0.9% 50 ML IV SCH (11:00)
[2021-08-25] MEDS ORDERED: INFLUENZA VACCINE (for 6+ mo) 0.5 ML DOSE IMVAC ONE (11:00)
[2021-08-25] MEDS: CALCIUM ACETATE 667 MG TAB PO SCH ×2 (12:00→17:00)
[2021-08-25] MEDS: SEVELAMER CARBONATE 800 MG TABLET PO SCH ×4 (12:28→22:12)
--- NOTE | 2021-08-25 13:22 | RAD REPORT ---
EXAM DESCRIPTION: CT - Abdomen Pelvis Wo Contrast - 08/25/2021 6:12 am CLINICAL HISTORY: 61 years Female ABD PAIN TECHNIQUE: Non contrast CT of the abdomen and pelvis with coronal and sagittal reformats. All CT sca ns at this facility use dose modulation, iterative reconstruction, and/or weight based dosing when ap propriate to reduce radiation dose to as low as reasonably achievable. COMPARISON: Abdominal radiograph report 02/26/2021. FINDINGS: Lower chest: Incompletely imaged small bilateral pleural effusions. Right middle lobe pulm onary nodule measuring 2.0 x 1.1 cm. Minimal groundglass opacity in the left lung base. Abdomen/Pelvis: Liver: Unremarkable. Gallbladder: Layering stones in the gallbladder without gallbladder wall thickening. Pancreas: Within normal limits. Spleen: Within normal limits. Kidney: Both kidneys are atrophic. No stone or hydronephrosis. Adrenal glands: Within normal limits. Vascular structures: Atherosclerosis of the aorta and its major branches. Bowel: Diverticulosis without inflammatory changes. No bowel distention. Appendix: Normal. Peritoneum: Small free fluid in the lower abdomen and pelvis. No free air. Mesenteric stranding at th e level of the pelvis. Unchanged positioning of the pigtail catheter in the right lower quadrant. Lymph Nodes: No lymphadenopathy. Reproductive: Status post hysterectomy. Urinary bladder: Unremarkable. Osseous structures: Multilevel degenerative changes. Soft tissues: Anterior abdominal wall inflammatory changes around the catheter on the left. Small fat -containing periumbilical hernia. IMPRESSION: 1. Small free fluid in the lower abdomen and pelvis with mesenteric stranding. This coul d be related to peritoneal dialysis use, however underlying peritoneal infection not completely exclu ded in this noncontrast study. 2. Incompletely imaged small bilateral pleural effusions. 3. Mild groundglass opacity in the left lung base which is nonspecific but may represent pneumonia in the appropriate clinical setting. 4. Anterior abdominal wall inflammatory changes around the catheter on the left suspicious for infect ion. 5. A 2 cm right middle lobe pulmonary nodule. Recommend prompt non-contrast Chest CT for further eval uation. These guidelines do not apply to immunocompromised patients and patients with cancer. Follow up in patients with significant comorbidities as clinically warranted. For lung cancer screening, adh ere to Lung-RADS guidelines. Reference: Radiology. 2017; 284(1):228-43. 6. Additional chronic findings as above. Electronically signed by: Chong Torres MD 08/25/2021 3:36 AM CHILD PSYCHOLOGIST Due to temporary technical issues with the PACS/Fluency reporting system, reports are being signed by the in house radiologists without review as a courtesy to insure prompt reporting. The interpreting radiologist is fully responsible for the content of the report.
--- NOTE | 2021-08-25 16:13 | CON ---
Date of Consultation: 08/25/2021 History Of Present Illness: The patient seen in emergency room 7 at [facility]. We hav e been consulted to evaluate and treat the patient for peritoneal dialysis. The patient has a diagno sis of end-stage renal disease. We know her from outpatient dialysis treatments. The patient is alexandra rt, awake and comfortable. She states that her abdominal pain is significantly better after she got some antibiotics. She has gotten Cipro and clindamycin. However, she has had some diarrhea yesterda y. States that the diarrhea overall has improved. The reason she came to the hospital was because s he was having discomfort in the abdomen and the discomfort was quite back and was quite diffuse. The discomfort now significantly improved. She does not have rebound. She was able to tolerate her ful l breakfast. She does not have any nausea, vomiting currently and the diarrhea has improved. The dalila mcrae's blood pressure is looking good at about 120-130 range systolic. She is alert, able to answer questions appropriately. She is breathing comfortably. She has O2 going at about 2 L, but she is n ot short of breath and O2 sats are in mid 90s. Her lungs are clear. She does not have any significa nt swelling in her lower extremities and her heart sounds are regular. The patient is a 61-year-old female who has a history of end-stage renal disease, who has been on per itoneal dialysis. Past Medical History: Significant for hypertension, diabetes mellitus. 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 The patient has hypertension history. The patient takes amlodipine and Cardura. The darnell andrade also has vitamin D deficiency and takes vitamin D. She has also been on PhosLo for calcium repl acement and lowering her phosphorus. Family History: Noncontributory. Patient does have history of diabetes and hypertension in the fami ly with both mother and father having hypertension. Past Medical And Surgical History: Consistent with peritoneal dialysis placement by Dr. Chaney. Annabella meier is on dialysis with 5 exchanges. Usually uses the green the 2.5% bags and has about 2 L fills with 5 exchanges. She is able to do her exchanges herself and knows how to cd storage and materials make up helper the machine comfortab ly and hook at the catheter site is clean. Catheter did work okay last night as per patient, but did have some alarms. The patient was having some abdominal discomfort and that was the reason why she came in. The patient has a history of hysterectomy, right knee surgery. She has had diabetes mellit us and also has had toe amputations on the left. Social History: Lives with her . Does not use alcohol. Smokes cigarettes or use any drugs. Review of Systems: Otherwise unremarkable except the patient has had some diarrhea yesterday and nausea vomiting, which is now significantly better. The abdominal pain is significantly improved. The patient seems more c omfortable, more alert and feels a lot better, was able to tolerate her full p.o. intake this morning . Physical Examination: Vital Signs: The patient's vitals are stable. Blood pressure in the 130 range. Heart rate is about 70-80 and regular, respirations around 14 and comfortable. Lungs: Clear to auscultation. Abdomen: Soft with some discomfort on palpation. Patient does have some diffuse tenderness still bu t able to tolerate a physical exam. The patient states that before if even somebody touched her abdo men she has significant pain, but this has now somewhat improved. Catheter site looks clean. The dr javy looks clean. There is no evidence of cellulitis or purulent discharge around the catheter sit e. Moving all 4 extremities. Alert, awake, and talking in full comfortable sentences. Lungs: Clear. Heart: Sounds are regular. Laboratory Data: Reviewed. The patient's labs show WBC count 8, hemoglobin at 9, hematocrit 27.8, p latelet counts of about 152. AST, ALT are 10 and 14. Total bilirubin is 0.6. Magnesium level was 3 .8, calcium was 8.5. Her prolactin level was 29. The patient has COVID negative on SARS-CoV 2 rapid test. Lipase was 74. Creatinine was 14, BUN 100, bicarb 21, chloride 97, potassium 3.6, sodium 139 . The patient does have some urine output and has been on Lasix at home as well. Assessment And Plan: The patient with likely peritonitis, question functionality of her PD catheter. The patient was able to tolerate PD yesterday. She states that PD catheter was functioning, deaeve r, she was having discomfort in the abdomen and so she came to the hospital, was also having some santi rrhea. Diarrhea is improved. The patient is able to tolerate p.o. intake this morning. Abdominal p ain is significantly better. Patient has antibiotics with clindamycin and Cipro. No cultures are av ailable. The patient is willing to enable to start her PD. She has her PD machine and supplies, her has brought back, nurse will assist bringing the PD machine close to the patient and the pat lupe is comfortable hooking herself up. If PD catheter for any reason is not working, Dr. Chaney wo heenad be informed to see if he needs to manipulate or adjust the catheter for improvement. Dr. Chaney has already been made aware of the patient by the ER yesterday. The patient is on antibiotics. I d o presume that she has some peritonitis going on at this point. We will discontinue the clindamycin and ciprofloxacin. We will start her on Zosyn and give her dose of vancomycin. If we are able to ge t cultures, if the PD catheter is functional and were able to get fluid, we will send for cultures an d adjust antibiotics further. Otherwise, keep them broad for now. The patient is afebrile. WBC cou nts are good. She is clinically improving. If catheter is functional, the patient may be able to go home with treatment of peritonitis with perhaps Levaquin 250 p.o. every other day for 2 more weeks a nd vancomycin dosing that can also be given IP, but can be given 500 mg IV one more time before she l eaves to keep it adequate 5 more days. If PD catheter is not functional or the patient is having abd ominal pain worsening or not further improved or has any issues with p.o. intake, may be able to keep her overnight and may need PD catheter manipulation and adjustment going forward. We will know that after patients try to use the PD catheter to see if it is working. I have discussed the case with t joshua patient's nurse in the emergency room where she is on hold right now and I have also discussed the case with Dr. Bo Kinsey who is a rounding hospitalist for the patient. Thank you for the consul tation. Do not hesitate to call me if any questions. Dr. Calabrsee will be rounding tomorrow and I w ill update her also on the status of the patient. /BILL Voice ID: [id number] Report ID: [id number]
[2021-08-25] MEDS ORDERED: GENTAMICIN 0.3% OPTH OINT 3.5GM EACH EYE SCH (21:00)
[2021-08-25] MEDS: carvediloL 25 MG TAB PO SCH (22:13)
[2021-08-26] MEDS ORDERED: NA CHLORIDE 0.9% 0 ML ONE (01:44)
[2021-08-26] MEDS: PIPER TAZO 2.25 GM in NA CHLORIDE 0.9% 50 ML IV SCH (01:50)
[2021-08-26 04:24] LABS: Absolute Lymphocytes (CBC) 0.3 K/uL (0.7-4.9); Basophils % 0.4 % (0-1.3); Hematocrit 23.3 % (36.0-45.0); Lymphocytes % 4.7 % (15.3-44.8); MPV 9.6 fL (7.6-11.3); RBC Red Blood Cell Count 2.46 M/uL (3.86-4.86)
[2021-08-26 04:40] LABS: ALT/SGPT < 6 U/L (12-78); AST/SGOT 12 U/L (15-37); Albumin 2.1 g/dL (3.4-5.0); Alkaline Phosphatase 103 U/L (45-117); BUN Blood Urea Nitrogen 105 mg/dL (7-18); Bicarbonate 20 mmol/L (21-32); Bilirubin Total 0.5 mg/dL (0.2-1.0); Glucose Level 190 mg/dL (74-106); HDL Cholesterol 22 mg/dL (40-60); LDL Cholesterol, Calculated 71 (<130); Magnesium 3.4 mg/dL (1.8-2.4); Potassium 4.1 mmol/L (3.5-5.1); Protein, Total 6.3 g/dL (6.4-8.2); Sodium Level 136 mmol/L (136-145); Thyroid Stimulating Hormone 0.803 uIU/mL (0.360-3.740)
[2021-08-26] MEDS ORDERED: Ciprofloxacin 200mg IV 200 MG/100 ML IV.SOLN. IV SCH (05:00)
--- NOTE | 2021-08-26 06:11 | P.PN ---
Subjective Date of Service: 08/26/21 Primary Care Provider: Dr. Herndon Chief Complaint: Peritonitis Subjective: Improving, Doing well Physical Examination - Vital Signs Temperature: 97.1 F Blood Pressure: 156/70 Pulse: 63 Respirations: 18 Pulse Ox (%): 93 Assessment & Plan Discharge Plan: Home Plan to discharge in: 24 Hours Physician Review Additional Text: COVID: negative CT scan: CT abdomen pelvis without contrast demonstrates small free fluid in the lower abdomen and pelvis with mesenteric stranding which could be related to peritoneal dialysis use although underlying peritoneal infection not completely excluded. Incomplete imaging of small bilateral pleural effusion, anterior abdominal inflammatory changes around the catheter on the left suspicious for infection, 2 cm right middle lobe pulmonary nodule recommend prompt noncontrast CT chest for further evaluation. Physical exam: General: Alert, In no apparent distress, Oriented x3 HEENT: Neck supple Respiratory: Clear to auscultation bilaterally, Normal air movement Cardiovascular: Regular rate/rhythm, Normal S1 S2 Gastrointestinal: Pain to the abdomen improved. Peritoneal dialysis in place. No cellulitis noted Musculoskeletal: No tenderness Integumentary: No rashes Neurological: Normal speech, Normal strength at 5/5 x4 extr, Normal tone, Normal affect Impression: Abdominal pain suspect peritonitis complicated with peritoneal dialysis catheter ESRD on PD Diabetes mellitus type 2diet controlled Hypertension Abnormal CT chest 2 cm right middle lobe pulmonary nodule COPD History of ITP Anemia of chronic disease Plan: Abdominal pain suspect peritonitis complicated with peritoneal dialysis catheter : Patient reports improvement. Orders for peritoneal dialysis was placed by nephrology yesterday. This was not done overnight. Case discussed with nephrology this morning. Patient will start peritoneal dialysis today. Continue with peritoneal dialysis. Anticipate continued improvement. Nephrology will discontinue Zosyn and change to Levaquin. 1 dose of vancomycin was also provided. If the patient tolerates peritoneal dialysis within the next 24 hours and abdominal pain improved then patient can be discharged home as early as tomorrow with Levaquin 250 mg daily for 14 days. Encourage ambulation. I will turn the service over to the hospitalist team tomorrow. I will go plan of care with him. ESRD on PD: Peritoneal dialysis was to be restarted yesterday but this was not done. Peritoneal dialysis to be done this morning and to be continued. Will monitor dialysis. Case discussed at length with nephrology. Diabetes mellitus type 2diet controlled: Continue Accu-Cheks and sliding scale. Will monitor closely. Hypertension: Continue with home medicationNorvasc 10 mg daily, carvedilol 25 m g 1 pill twice daily, and Cardura [address] chest 2 cm right middle lobe pulmonary nodule: Patient is seen by pulmonology as an outpatient. Recommend follow-up with pulmonology as an outpatient to further address. Patient will likely require repeat CT scan. COPD: Continue with her medication from home History of ITP: Monitor platelet. Zosyn was discontinued and switched over to Levaquin. DC heparin prophylaxis and changed to SCD. Anemia of chronic disease: Recheck hemoglobin stable. We will monitor this closely. DVT PPX: SCD Code status: Full code Discharge Plan: Home at discharge Time Spent Managing Pts Care (In Minutes): 55
[2021-08-26] MEDS: INSULIN -REGULAR HUMAN 50 UNIT/0.5 ML ML SQ SCH ×4 (07:30→21:00)
[2021-08-26] MEDS: SEVELAMER CARBONATE 800 MG TABLET PO SCH ×4 (08:00→21:49)
[2021-08-26] MEDS: CALCIUM ACETATE 667 MG TAB PO SCH ×3 (08:00→17:00)
--- NOTE | 2021-08-26 08:06 | EKG ---
Test Date: 2021-08-25 Test Time: 01:50:20 Cat Swamper: TW MEASUREMENT RESULTS: Intervals: Rate: 70 SC: QRSD: 84 QT: 424 QTc: 457 Kinards: P: SC: QRS: 0 T: 55 INTERPRETIVE STATEMENTS: Accelerated Junctional rhythm Nonspecific ST and T wave abnormality Abnormal ECG No previous ECG available for comparison Electronically Signed On 08-26-21 08:03:22 OUTREACH REPRESENTATIVE by Howard Reese
[2021-08-26] MEDS ORDERED: PIPER TAZO 2.25 GM in NA CHLORIDE 0.9% 50 ML IV SCH (09:00)
[2021-08-26] MEDS: HOME MED 1 EA UNK (Fluticasone/Umeclidin/Vilanter [Trelegy Ellipta 200-62.5-25] Blst.W.Dev IH SCH (09:00)
[2021-08-26] MEDS: HYDROCODONE/APAP 5/325 MG TAB PO PRN ×2 (09:11→21:57)
[2021-08-26] MEDS: LACTULOSE 20 GM/30 ML UCUP PO SCH ×2 (09:11→21:50)
[2021-08-26] MEDS: DOXAZOSIN 4 MG TAB PO SCH (09:12)
[2021-08-26] MEDS: AMLODIPINE 10 MG TAB PO SCH (09:12)
[2021-08-26] MEDS: PANTOPRAZOLE 40MG TABLET PO SCH (09:12)
[2021-08-26] MEDS: carvediloL 25 MG TAB PO SCH ×2 (09:12→21:49)
[2021-08-26] MEDS: CALCITROL 0.25 MCG CAP PO SCH (09:12)
[2021-08-26] MEDS: HEPARIN 5000 UNIT/ML 1 ML VIAL SQ SCH (09:13)
[2021-08-26] MEDS: Levofloxacin 250mg IV 250 MG/50 ML BAG IV SCH (11:45)
--- NOTE | 2021-08-26 12:23 | CON ---
Date of Consultation: 08/24/2021 Brief History Of Present Illness: The patient is a 61-year-old female with a history of end -stage renal disease, known to me with a history of hypertension, diabetes, diet-controlled, who pres ents with generalized weakness, malaise, abdominal pain beginning around her peritoneal dialysis cath eter over the past 1-2 days. She has been receiving peritoneal dialysis from a catheter, I placed ap proximately 6 months with no issues. Presents with abdominal pain and decreased catheter function. She states that she has not been able to utilize the catheter effectively since her abdominal pain be darron 2 days ago. She felt that she was just simply dehydrated, but came to the emergency room with th e above-stated complaints. Past Medical History: As above diabetes, hypertension, end-stage renal disease, ovarian cyst. Past Surgical History: Includes ovarian cyst removal, hysterectomy, right knee surgery, left toe amp utation, laparoscopic peritoneal dialysis catheter placement, hemodialysis catheter placed, hemodialy sis catheter removal, revision of peritoneal dialysis catheter. Social History: She is unemployed, lives with her . Denies smoking, alcohol, recreational dr ug use. Allergies: TO LISINOPRIL AND SULFA. Home Medications: Include Norvasc, PhosLo, vitamin D, Cardura, Lasix. Review of Systems: A 10-point review of systems other than HPI, she has diarrhea. Physical Examination: General: At the time of my examination; she is awake, alert, oriented. Vital Signs: Her blood pressure , respiratory rate 18, temperature 98.7. Pain level is 2. Oxygen sats 97% on room air. Psychiatric: She is appropriate, conversive. HEENT: Normocephalic. Sclerae anicteric. Mucous membranes moist. Oropharynx clear. Neck: Supple. No JVD. Chest: Normal expansion and excursion. Cardiovascular: Regular rate and rhythm. Pulmonary: Clear to auscultation bilaterally. Abdomen: Global tenderness to palpation consistent with mild peritonitis globally. There was tender ness at the catheter insertion site. There was no drainage or an obvious skin related infections at the catheter site. No abscess nor obvious infection on the catheter at the skin level; however, she does have abdominal pain globally, which may be related to peritonitis from catheter related infectio n. Extremities: No clubbing, cyanosis, or edema. Skin: Warm and dry. Laboratory Data: Reveals white blood cell count of 8, hemoglobin is 9.0, hematocrit 27.8, platelet c ount was , neutrophils 88%. Her sodium was 139, potassium 3.6, chloride 97, carbon dioxide 21, BUN 100, creatinine 14, glucose 159. Her lactic acid 1.0, magnesium 3.8, total bilirubin 0.6, d irect component 0.1, AST 10, ALT 14, alkaline phosphatase 144. Troponin 0.06 and 0.07 on subsequent checks, proBNP is 53,374. Procalcitonin 29. COVID was negative. She had a PT of 12.1, INR 1.05. S he had imaging performed as well, which included a CT of the abdomen and pelvis, officially read as s mall free fluid in the lower abdomen and pelvis with mesenteric stranding, could be related to perito saray dialysis use; however, underlying peritoneal infection not completely excluded in a noncontrast study bilateral small pleural effusions, mild ground-glass opacities in left lung which ma y be nonspecific, anterior abdominal wall inflammatory change around the catheter looked suspicious f or infection, a 2 cm right middle lobe pulmonary nodule, recommend followup and additional chronic fi ndings. Assessment And Plan: This is a 61-year-old female with end-stage renal disease on peritoneal dialysi s, comes in with what sounds like bacterial peritonitis likely due to catheter related infection. 1.IV fluid hydration. 2.Antibiotic coverage. 3.Await Nephrology input with respect to treatment of her peritoneal infection. 4.The patient may have not dysfunction of the peritoneal dialysis catheter and as such, she may requ claudine attempts to flush the catheter if this is unsuccessful, however, will require removal of the cath eter giving her abdominal peritoneal holiday with antibiotic coverage until her symptoms resolve. We will place a tunnel hemodialysis catheter in the interim and reconsider peritoneal dialysis when her symptoms are completely resolved. I explained the risks, benefits, and alternatives of the above st ated plan. The patient agreed to proceed as indicated. Thank you for this interesting consult. CESAR/BILL Voice ID: [id number] Report ID: [id number]
[2021-08-26] MEDS ORDERED: NA CHLORIDE 0.9% 500 ML ONE ×2 (13:26→15:32)
[2021-08-26] MEDS ORDERED: LIDOCAINE 1% MPF 5 ML VIAL ONE (13:39)
[2021-08-26] MEDS ORDERED: propofoL 200 MG/20 ML VIAL IV ONE (13:39)
[2021-08-26] MEDS ORDERED: FENTANYL CITR 100 MCG/2 ML ONE (13:40)
[2021-08-26] MEDS ORDERED: NS 0.9% VIAL 0 ML ONE (13:41)
[2021-08-26] MEDS ORDERED: NA CHLORIDE 0.9% 50 ML ONE (13:41)
[2021-08-26] MEDS ORDERED: HEPARIN 5000 UNIT/ML 1 ML VIAL ONE (13:41)
[2021-08-26] MEDS ORDERED: CEFAZOLIN SODIUM 1 GM/VIAL ONE (13:59)
--- NOTE | 2021-08-26 14:00 | PN ---
Date of Progress Note: 08/26/2021 Subjective: The patient was seen and examined at bedside. There was some confusion with the orders with dialysis yesterday and she did not do dialysis last night, but she has started her dialysis this morning and she states that she has 2 L of dwell PD fluid, dwell right now and is having some signif icant abdominal discomfort. She has not had a bowel movement in two days. Objective: Vital Signs: At this time are showing temperature of 97.8, pulse rate of 63, respiratory rate of 20, and blood pressure 128/76. General: She appears in no acute distress. HEENT: Shows atraumatic head. Lungs: Clear to auscultation. Cardiovascular: Auscultation of the heart revealed regular rate and rhythm. Extremities: Showed no evidence of edema. Abdomen: Slightly tender. No rebound or guarding was noted. It was distended with PD fluid. Laboratory Data: At this time are showing creatinine of 15.1, BUN of 105, bicarb of 20, sodium of 13 6, and potassium of 4.1. CBC results are showing hemoglobin of 7.9, hematocrit of 24, and platelet c ount of 122, which is slightly lower than 152 yesterday. Medications: Current medications include Zosyn 2.275 g every eight hours. She is also on vancomycin one time dose which was given and she had a dose of Epogen yesterday and she is on Coreg, doxazosin, calcium acetate, and amlodipine daily. Blood cultures so far are negative. PD fluid cultures have not been sent. Assessment: Acute peritonitis. Microcultures unable to be obtained at this time because of unavaila bility of PD nurse at the hospital. We are empirically treating her with one time dose of vancomycin and Zosyn. However, because of her drop in platelet count, we will consider changing the Zosyn to L evaquin IV and monitor her closely. At this time, she is on PD. She is doing her PD dwell. I have advised her to do rapid exchanges in and out with 2 L for four exchanges today and then again back to her regular prescription tonight with five exchanges and 1 hour 20 minutes dwell time. She has ashok en a dose of Retacrit yesterday. I will plan on giving her another dose of Retacrit tomorrow. She d oes have history of severe thrombocytopenia and ITP, and was treated with steroids in the past. Sánchezc e, we will continue to monitor the platelet count closely and follow up in a close manner. There is also a concern for PD catheter malfunction. Dr. Chaney has already been consulted and if she does h ave issues with drainage of the PD catheter, she can be taken back to the OR and PD catheter can be a djusted. However, we will continue to monitor at this time. If she does well with the PD catheter e xchanges, she can be discharged on p.o. Levaquin and I will arrange for intraperitoneal Ancef at home . We will continue to monitor closely and will follow up. We will also discuss the plan with Dr. Renetta bah. I have ordered bowel regimen for her with lactulose for two days and also hydrocodone p.r.n. f or pain. VV/BILL Voice ID: [id number] Report ID: [id number]
[2021-08-26] MEDS ORDERED: dexAMETHasone 10 MG/ML VIAL ONE (14:28)
[2021-08-26] MEDS ORDERED: ONDANSETRON 4 MG/2 ML VIAL ONE (14:29)
[2021-08-26] MEDS ORDERED: GLYCOPYRROLATE 0.2 MG/ML SYR ONE ×2 (14:38→14:49)
[2021-08-26] MEDS: BUPIVACAINE 0.25% PF 30 ML VIAL ONE ×2 (14:45→14:52)
[2021-08-26] MEDS ORDERED: NS 0.9% VIAL 30 ML ONE (15:27)
[2021-08-26] MEDS ORDERED: NS 0.9% VIAL 10 ML ONE (15:44)
[2021-08-26] MEDS ORDERED: Phenylephrine HCl 10 MG/ML 1 ML VIAL ONE (15:58)
--- NOTE | 2021-08-26 16:13 | RAD REPORT ---
EXAM DESCRIPTION: RAD - Fluoroscopy >1 Hr - 08/26/2021 4:00 pm CLINICAL HISTORY: HEMO DIALYSIS CATH INSERT COMPARISON: No comparisons FINDINGS: Fluoroscopy time 4.1 minutes.
--- NOTE | 2021-08-26 16:25 | P.OP ---
Preoperative diagnosis: End Stage Renal Disease Postoperative diagnosis: End Stage Renal Disease Primary procedure: Placement of LEFT internal jugular Tunnelled HD Cath Secondary procedure: Laparoscopic washout, removal of Peritoneal dialysis catheter Other procedure(s): attempted placement of RIGHT subclavian HD catheter - unsuccessful Anesthesia: GETA + Local Estimated blood loss: ~100cc Specimen: cultures from wound, peritoneal washings, catheter tip Findings: intra-abdominal infection, clogged PD catheter, difficult RIGHT Subclavian Complications: None Implants: 24 cm Hemosplit tunnelled HD catheter Transferred to: Recovery Room Condition: Good
[2021-08-26] MEDS: MORPHINE 4 MG/ML SYR ONE ×3 (16:45→16:59)
--- NOTE | 2021-08-26 16:52 | RAD REPORT ---
EXAM DESCRIPTION: RAD - Chest Single View - 08/26/2021 4:46 pm CLINICAL HISTORY: s/p hemodialysis placement Chest pain. COMPARISON: Chest Single View dated 08/25/2021; Chest Pa And Lat (2 Views) dated 08/10/2021; Abdomen 1 View (KUB) dated 02/26/2021 FINDINGS: Portable technique limits examination quality. Left-sided venous catheter has tip in the SVC. No postprocedure pneumothorax. The heart is moderately enlarged in size. IMPRESSION: No postprocedure pneumothorax.
[2021-08-26] MEDS ORDERED: MORPHINE 2 MG/ML SYR IV PRN (17:11)
--- NOTE | 2021-08-26 19:26 | OP ---
Date of Procedure: 08/26/2021 Surgeon: James Chaney MD, Preoperative Diagnosis: End-stage renal disease/peritoneal catheter dysfunction. Postoperative Diagnosis: End-stage renal disease/peritoneal catheter dysfunction. Procedure Performed: 1.Attempted placement of right subclavian hemodialysis catheter unsuccessfully. 2.Placement of left internal jugular tunneled hemodialysis catheter successfully using ultrasound an d fluoroscopic guidance. 3.Laparoscopic abdominal washout. 4.Laparoscopic peritoneal culture. 5.Removal of tunneled peritoneal dialysis catheter. Anesthesia: General endotracheal plus local with 0.25% Marcaine without epinephrine. Estimated Blood Loss: 100 cc. Specimen: 1.Cultures from wound. 2.Cultures from peritoneal washings, all for aerobic and anaerobic speciation. 3.Catheter tip from peritoneal dialysis catheter sent for culture as well. Findings: 1.Intraabdominal infection with murky fluid throughout the entire abdominal compartment. 2.Peritoneal dialysis catheter was clogged and had significant fibrin buildup throughout most of its distal course. 3.Intraabdominal peritoneal adhesions to the anterior abdominal wall in the lower pelvic area. 4.Difficult anatomy in the right subclavian position with inability to pass the catheter into the luke perior vena cava. Complications: None immediate. Implants: 24 cm HemoSplit tunneled hemodialysis catheter. Disposition: The patient transferred to recovery room in good condition. Procedure In Detail: After informed consent was obtained, patient was brought to the operating room, prepped and draped in usual sterile fashion. After adequate anesthesia was achieved, the patient wa s placed in steep Trendelenburg position. Using ultrasound guidance, I interrogated the area of the right internal jugular vein and found it to be quite small, diminutive, and not good for appropriate positioning of the catheter. As such, I opted to place a right subclavian hemodialysis catheter usin g anatomic landmarks and the microintroducer set. I cannulated anatomic landmarks near the deltopect oral groove and cannulated the subclavian vein using a microintroducer set without incident or compli cation. The micro wire was advanced. Fluoroscopy confirmed position into the SVC at this point of t he micro wire. At this point, a manny incision was made at the insertion site and I advanced the micr ointroducer sheath and removed the micro wire and advanced the standard wire, and once again confirme d position with fluoroscopic guidance. There was some curling of the wire, however, ectopy was appre ciated and it was in the confluence of the SVC and curled around this region. At this point, I made a separate stab incision on the chest wall 4 to 5 cm away from the insertion site and brought in the tunneled catheter through the exit site. I then performed sequential dilatation of this tract and pl aced the introducer sheath, however there was difficulty on placing the introducer sheath over the wi re using fluoroscopic guidance. There appeared to be difficulty at the confluence of the SVC. As luke ch, I could not get the catheter to curve down in this direction. I therefore back it out slightly a nd the wire continued to trace in this direction. I attempted to place the catheter at this point, b ut because the catheter was sitting significantly out and above the skin level, it made the catheter somewhat floppy and weak and I was unable to advance the catheter at this point. As such, I abandone d this portion and removed the catheter and all wires at this point as I was unable to place it after multiple attempts. At this point, the patient was brought in head-up position. Pressure was held i n the subclavian vein for approximately 5 minutes and I re-attempted the same said procedure slightly lateral for a more smooth parallel course of insertion. At this point, using a new micro introducer set, I made a separate insertion of the micro wire into the right subclavian vein once again and can nulated on the first attempt. Dark red, nonpulsatile blood was returned. The micro wire was once ag ain advanced, confirmed position with the fluoroscopic guidance once again at the SVC. Similarly, I performed the microintroducer sheath placement and removed the micro wire and advanced standard wire. Once again, there was confluence with some difficulty passing it down to the inferior vena cava as there appeared to be curling of the wire in the area of the atrium. However, once again the position was at the SVC atrial confluence, which would have been adequate positioning for the catheter. At t his point, I made another separate stab incision and tunneled the catheter in a similar to previous a ttempt through the insertion site. I then performed sequential dilatation easily once again and atte mpted to place the introducer sheath and once again was unable to place the catheter for the same maia son as I could not get it to go inferiorly. It would only curve superiorly toward the carotid artery or it would curve back on itself at the confluence of the SVC and subclavian junction. Therefore, I abandoned this once again and removed the area and brought the patient in head-up position, held pre ssure for 5 additional minutes. I then irrigated all skin incisions and closed them using interrupte d 3-0 nylon sutures after irrigating these copiously. I then turned my attention to the left interna l jugular vein which was also prepped in anticipation of this portion of the procedure. There was no evidence of pneumothoraces or any other complications at this point, and as such, I chose to proceed with the placement of the left internal jugular. At this point using ultrasound guidance, I cannula james the left internal jugular vein using ultrasound guidance. The needle and micro wire were advance d at this point without evidence of complication. Fluoroscopy confirmed position of the micro wire i nto the confluence of the SVC. At this point, I made a stab incision and placed the microintroducer sheath at this point and the standard wire was advanced. Fluoroscopic guidance once again confirmed the position of the wire and the confluence of the SVC. I then removed the introducer sheath and per formed a separate stab incision approximately 4 cm inferior to the clavicle and tunneled the 24 cm He moSplit catheter up through the insertion site. I then performed sequential dilatation using 2 dilat ors and placed introducer sheath without incident or complication. The wire was removed at this poin t and the inner portion was removed. Dark red, nonpulsatile blood was returned and the catheter was advanced into the SVC confluence at this point using fluoroscopic guidance. I then removed the intro ducer sheath and no bleeding was appreciated at this point. I then tested both ports and got dark re d, nonpulsatile blood quite easily and flushed with saline until completely clear. I then packed wit h heparin super flush 2 cc per port, approximately 3000 units per port of heparin. I then secured th e catheter to the exit site using a 2-0 nylon suture and 3 sutures were used to secure it to the ches t wall. Catheter was then placed in this area. The skin insertion site was then irrigated and close d with a single interrupted 3-0 nylon suture and the patient was placed in head-up position at this p oint. I then turned my attention to the laparoscopic portion. The patient had been prepared for the laparoscopic portion also previously. I made a small stab incision in left upper quadrant using a 1 5 blade down to subcutaneous tissues after appropriately anesthetizing the skin. I then introduced t he 5 mm trocar under direct visualization without evidence of complication using a 0-degree optical t rocar. At this point, insufflation was obtained to 15 mmHg at this time. Inspection was performed a nd it showed murky fluid throughout the peritoneal cavity. I then made a separate stab incision in t he left mid abdomen and under direct visualization placed additional 5 mm trocar without evidence of complication. At this point, insufflation was obtained to 15 mmHg at this time. I suctioned out renard e of this fluid and found it to be murky, and as such, I cultured this fluid and sent it off for furt her aerobic and anaerobic speciation as it had a quite murky infected appearance to it, and there was significant fibrin deposition throughout the entire abdominal compartment. I then irrigated all 4 q uadrants of the abdomen and suctioned this out until completely clear. The catheter was then grasped , elevated, and brought superiorly. I took a photo of this showing that there was fibrinous buildup within the catheter and significant intraperitoneal infection likely from insertion site. At this po int, I then desufflated the abdomen and made a separate counter incision over the insertion site usin g a 15 blade after appropriately anesthetizing the skin. Abscess material was appreciated at this po int. I then cultured this for both aerobic and anaerobic speciation. After this was performed, I cu t down to the superficial cuff of the peritoneal dialysis catheter and circumferentially dissected th is using combination of electrocautery and blunt dissection. The catheter was then brought to the fi eld after the cuff was removed. I then turned my attention to the deeper cuff in the rectus sheath. I cut down this area after appropriately anesthetizing the skin using the previously placed incision as a joann. I then directed my dissection bluntly down to the deep cuff and circumferentially dissec james this free after grasping the catheter and elevated it into the field after the deep cuff was shruthi ladonna. I then delivered the catheter from the intraperitoneal portion out into the abdomen and cut thi s catheter tip and sent it off for culture for both aerobic and anaerobic speciation. I then removed the catheter without evidence of complication. I irrigated the entire tract of both insertion site as well as the exit site and cleared all abscess material. At this point, I reinsufflated the abdome n, ensured the peritoneal cavity was intact without any leakage of air or fluid throughout the cathet er tract, which was found to be quite intact without any leakage of air or fluid. I suctioned out th e remaining effluent after positioning the patient head-down and Trendelenburg positions and suctioni ng out this area after appropriately irrigating the abdomen. After all effluent was suctioned out, t he patient was positioned back in neutral position. The remaining trocars were removed after complet lashon desufflating the abdomen and these trocars were removed. All trocar sites were then irrigated co piously with sterile saline as well as the previously cleaned out wounds. They were irrigated once a gain. All skin incisions were closed with the exception of the catheter exit site, which had an absc ess in this area. All the skin incisions were closed with interrupted 2-0 nylon suture and a sterile dressing was placed over top. The wound where the abscess was appreciated at the subcutaneous level was packed with quarter-inch iodoform packing and sterile dressing placed over top. The patient sathya erated the procedure well without evidence of complication, transferred to PACU in good condition. A ll counts were correct at the end of case. CESAR/BILL Voice ID: [id number] Report ID: [id number]
[2021-08-26 21:30] LABS: Absolute Lymphocytes (CBC) 0.2 K/uL (0.7-4.9); Basophils % 0.1 % (0-1.3); Hematocrit 21.2 % (36.0-45.0); Lymphocytes % 3.7 % (15.3-44.8); MPV 9.7 fL (7.6-11.3); RBC Red Blood Cell Count 2.24 M/uL (3.86-4.86)
[2021-08-27 03:53] LABS: Absolute Lymphocytes (CBC) 0.3 K/uL (0.7-4.9); Basophils % 0.6 % (0-1.3); Lymphocytes % 4.6 % (15.3-44.8); MPV 10.2 fL (7.6-11.3); RBC Red Blood Cell Count 2.15 M/uL (3.86-4.86)
[2021-08-27 04:11] LABS: Hematocrit 20.5 % (36.0-45.0)
[2021-08-27 04:18] LABS: Albumin 1.8 g/dL (3.4-5.0); Bilirubin Total 0.4 mg/dL (0.2-1.0); Magnesium 3.4 mg/dL (1.8-2.4); Potassium 3.9 mmol/L (3.5-5.1); Protein, Total 5.9 g/dL (6.4-8.2)
[2021-08-27] MEDS: INSULIN -REGULAR HUMAN 50 UNIT/0.5 ML ML SQ SCH ×4 (07:30→20:55)
--- NOTE | 2021-08-27 07:53 | P.CNS ---
Date of Consult: 08/27/21 Primary Care Provider: Dr. Herndon Chief Complaint: Peritonitis Allergies lisinopril Allergy (Mild, Verified 05/15/21 08:23) Hives/Rash Sulfa (Sulfonamide Antibiotics) Allergy (Verified 05/15/21 08:23) Nausea/vomiting/weakness Home Medications: Amlodipine [Norvasc] 10 mg PO DAILY 02/18/21 Calcium Acetate [Phoslo] 3 cap PO TIDWM 02/18/21 Calcium Acetate 4 tab PO TID 08/25/21 Carvedilol [Coreg] 25 mg PO BID 08/25/21 Doxazosin Mesylate 8 mg PO DAILY 08/25/21 Doxazosin Mesylate 16 mg PO DAILY 08/25/21 Fluticasone/Umeclidin/Vilanter [Trelegy Ellipta 200-62.5-25] 1 each IH DAILY 08/25/21 Pantoprazole [Protonix Tab*] 40 mg PO DAILY 08/25/21 Sevelamer Carbonate 1 tab PO QID 08/25/21 Sevelamer Carbonate 2,400 mg PO TID 08/25/21 calcitrioL [Rocaltrol] 0.25 mcg PO DAILY 08/25/21 dexAMETHasone [Dexamethasone] 2 mg PO BID 08/25/21 - Past Medical/Surgical History Diabetic: Yes -: ESRD on PD -: Hypertension -: Diabetes type 2diet controlled -: GERD -: Ovarian cyst removal -: Hysterectomy -: Right knee surgery -: Left toe amputations -: Inner ear -: lasik Psychosocial/ Personal History: Patient is unemployed, lives at home with her - Family History Mother Medical History: Heart disease, Hypertension, Diabetes Father Medical History: Hypertension, Diabetes - Social History Smoking Status: Unknown if ever smoked Alcohol use: No CD- Drugs: No Caffeine use: Yes Place of Residence: Home Physical Examination Temp Pulse Resp BP Pulse Ox 97.1 F 66 16 142/65 H 93 08/27/21 04:00 08/27/21 04:00 08/27/21 04:00 08/27/21 04:00 08/27/21 04:00
[2021-08-27] MEDS: HOME MED 1 EA UNK (Fluticasone/Umeclidin/Vilanter [Trelegy Ellipta 200-62.5-25] Blst.W.Dev IH SCH (09:00)
[2021-08-27] MEDS: DOXAZOSIN 4 MG TAB PO SCH (09:07)
[2021-08-27] MEDS: carvediloL 25 MG TAB PO SCH ×2 (09:08→20:36)
[2021-08-27] MEDS: SEVELAMER CARBONATE 800 MG TABLET PO SCH ×4 (09:08→20:38)
[2021-08-27] MEDS: AMLODIPINE 10 MG TAB PO SCH (09:08)
[2021-08-27] MEDS: CALCIUM ACETATE 667 MG TAB PO SCH ×3 (09:08→17:00)
[2021-08-27] MEDS: PANTOPRAZOLE 40MG TABLET PO SCH (09:09)
[2021-08-27] MEDS: CALCITROL 0.25 MCG CAP PO SCH (09:09)
[2021-08-27] MEDS: LACTULOSE 20 GM/30 ML UCUP PO SCH ×2 (09:09→20:36)
[2021-08-27] MEDS: Levofloxacin 250mg IV 250 MG/50 ML BAG IV SCH (09:12)
[2021-08-27] MEDS ORDERED: EPOETIN ALFA-EPBX 10,000 UNIT/ML VIAL SQ ONE (10:00)
--- NOTE | 2021-08-27 10:38 | PN ---
Date of Progress Note: 08/27/2021 Subjective: The patient seen and examined in room 410 at [facility] in [place]. T he patient is alert, awake, comfortable. She states she feels a whole lot better compared to yesterd ay. She is more energetic today. She is denying any abdominal pain. She has been able to tolerate her breakfast well. No nausea, no vomiting, no diarrhea. The patient had her PD catheter removed ye sterday. She has had a tunneled catheter placed on the left IJ. There was attempt to place a right subclavian that was unsuccessful. The patient's left IJ is in place. Area seems clean. No active b leeding. The patient has had a small drop in her hemoglobin from 7 range to 6.7. The patient is for Jehovah Witness erlinda and agrees to taking Aranesp, Retacrit and other WILLIAM related items, but is not agreeable to taking blood. I had initially ordered blood for her after I looked at her 6.7 hemoglob in, but after discussing with the patient, this has been discontinued as the patient clearly understa nds risks and benefits of not taking the blood and is of the opinion that she would rather take the E SA with the risks of having low blood count but not take blood transfusion. She has also refused blo od in the past and she has been consistent. Objective: Vital Signs: Vitals are stable. Blood pressure 142/67, pulse 65, respirations around 14 , temperature is afebrile at 97.2, pulse ox is around 91% to 95%. She is on room air right now. Lungs: Clear to auscultation anteriorly. Abdomen: Soft. Extremities: Revealed trace edema bilaterally. Heart: Sounds are regular. Laboratory Data: Reviewed. Labs show WBC count of 5.5, hemoglobin 6.7 yesterday was 7.1, hematocrit 20.5, platelet count of 102. Chemistry shows sodium 137, potassium 3.9, chloride 101, bicarb is 18, BUN is 108, creatinine is 14.2, calcium 7.7. Assessment And Plan: The patient with history of peritoneal dialysis, status post peritonitis and ca theter not functioning. The patient's catheter has been removed. The patient is currently on antibi otics. Clinically much improved. WBC is now in normal range. Culture results are pending for blood cultures. At this point, the patient is significantly improved clinically. She does have a right I J catheter. She has anemia, but is refusing blood transfusion but is agreeable to getting WILLIAM. She has low calcium, and is on vitamin D. She also has a low bicarb that should be improved after the dalila mcrae gets dialysis. Plan is to do dialysis today. Dialysis orders are in the chart and have been d iscussed with the dialysis nurse. We will be dialyzing the patient today. In summary dialysis today . 1.End stage renal disease. Dialysis today. 2.Metabolic acidosis, should correct with dialysis. 3.Electrolytes: Sodium, potassium in good range. 4.Volume status, should be corrected with dialysis. The patient is close to euvolemic as she has no t been eating and drinking well, but now her appetite is improved. We will ultrafiltrate with dialys is. Dialysis for 3 hours with 2K bath, 35 bicarb, sodium 137. Dialysis orders have been communicate d with the dialysis nurse. 5.Hypocalcemia, on vitamin D. 6.Peritonitis, on antibiotics, significantly improved clinically. 7.Anemia. The patient is refusing blood transfusion due to being Jehovah Witness. We will give her Retacrit. The patient agrees to taking Retacrit. 8.Disposition. Discussed with charge nurse. We will get a hepatitis B surface antigen. The patiminesh banks will be placed at the [facility], where she was getting peritoneal dialysis. She will be now on hemodialysis there as soon as dialysis chair is arranged. The patient should be able to g o home. If antibiotics are needed further can be given with dialysis. /BILL Voice ID: [id number] Report ID: [id number]
--- NOTE | 2021-08-27 10:51 | P.PN ---
Subjective Date of Service: 08/27/21 Primary Care Provider: Dr. Herndon Chief Complaint: Peritonitis Today she is doing well, no issues over night, no CP or SOB, no abd pain, no fever or chills, at the bedside Review of Systems General: Other (pale ) Physical Examination - Vital Signs Temperature: 97.2 F Blood Pressure: 142/67 Pulse: 65 Respirations: 17 Pulse Ox (%): 91 Assessment & Plan Physician Review Additional Text: COVID: negative CT scan: CT abdomen pelvis without contrast demonstrates small free fluid in the lower abdomen and pelvis with mesenteric stranding which could be related to peritoneal dialysis use although underlying peritoneal infection not completely excluded. Incomplete imaging of small bilateral pleural effusion, anterior abdominal inflammatory changes around the catheter on the left suspicious for infection, 2 cm right middle lobe pulmonary nodule recommend prompt noncontrast CT chest for further evaluation. Physical exam: General: Alert, In no apparent distress, Oriented x3 HEENT: Neck supple , PEERLA oral mucous moist Respiratory: Clear to auscultation bilaterally, Normal air movement Cardiovascular: Regular rate/rhythm, Normal S1 S2 Gastrointestinal: no abd tenderness, NO HSM, + BS Peritoneal dialysis in place. No cellulitis noted Integumentary: No rashes Neurological: Normal speech, Normal strength at 5/5 x4 extr, Normal tone, Normal affect Impression: Abdominal pain suspect peritonitis complicated with peritoneal dialysis catheter ESRD on PD Diabetes mellitus type 2diet controlled Hypertension Abnormal CT chest 2 cm right middle lobe pulmonary nodule COPD History of ITP Anemia of chronic disease Plan: Abdominal pain suspect peritonitis complicated with peritoneal dialysis catheter: Patient reports feeling better, HD catheter was placed She will start HD today, Case discussed with nephrology this morning, cont Levaquin 250 mg QOD for a 2 wks. 1 dose of vancomycin was also provided, she will need HD chair before she can be dc, it can tomorrow or early next wk, . ESRD on HD now . Case discussed at length with nephrology.she will receive HD today Diabetes mellitus type 2diet controlled: HGB A1c7 most likley pt need oral meds as outpt, Continue Accu-Cheks and sliding scale. Will monitor closely. Hypertension: borderline control Continue with home medicationNorvasc 10 mg daily, carvedilol 25 mg 1 pill twice daily, and Cardura [address] chest 2 cm right middle lobe pulmonary nodule: Patient is seen by pulmonology as an outpatient. Recommend follow-up with pulmonology as an outpatient , pt will need CT guided bx to r/o malignancy COPD: Continue with her medication from home History of ITP: Monitor platelet 102 today . Zosyn was discontinued and switched over to Levaquin yesterday . DC heparin prophylaxis and changed to SCD by Dr rodriguez .encourage ambulation Anemia of chronic disease: worse HGB 6.7, on epo pt refuse transfusion since she is J witness. We will monitor this closely. DVT PPX: SCD Code status: Full code Discharge Plan: Home at discharge
[2021-08-28 06:25] LABS: Absolute Lymphocytes (CBC) 0.4 K/uL (0.7-4.9); Basophils % 0.3 % (0-1.3); Lymphocytes % 6.5 % (15.3-44.8); MPV 9.4 fL (7.6-11.3); RBC Red Blood Cell Count 2.18 M/uL (3.86-4.86)
[2021-08-28 06:34] LABS: Hematocrit 20.7 % (36.0-45.0)
[2021-08-28 06:50] LABS: AST/SGOT 12 U/L (15-37); Albumin 1.9 g/dL (3.4-5.0); Alkaline Phosphatase 79 U/L (45-117); BUN Blood Urea Nitrogen 59 mg/dL (7-18); Bicarbonate 25 mmol/L (21-32); Bilirubin Total 0.4 mg/dL (0.2-1.0); Glucose Level 206 mg/dL (74-106); Magnesium 2.8 mg/dL (1.8-2.4); Potassium 3.3 mmol/L (3.5-5.1); Protein, Total 6.1 g/dL (6.4-8.2); Sodium Level 137 mmol/L (136-145)
[2021-08-28 06:52] LABS: ALT/SGPT < 6 U/L (12-78)
[2021-08-28] MEDS: INSULIN -REGULAR HUMAN 50 UNIT/0.5 ML ML SQ SCH ×4 (07:30→20:19)
[2021-08-28] MEDS: SEVELAMER CARBONATE 800 MG TABLET PO SCH (08:00)
[2021-08-28] MEDS: CALCIUM ACETATE 667 MG TAB PO SCH ×3 (08:00→17:00)
[2021-08-28] MEDS ORDERED: DOXAZOSIN 2 MG TAB ONE (08:23)
[2021-08-28] MEDS: DOXAZOSIN 4 MG TAB PO SCH (09:00)
[2021-08-28] MEDS: HOME MED 1 EA UNK (Fluticasone/Umeclidin/Vilanter [Trelegy Ellipta 200-62.5-25] Blst.W.Dev IH SCH (09:00)
[2021-08-28 09:07] LABS: Blood Morphology Comment NOT SEEN (NOT SEEN)
[2021-08-28 09:08] LABS: Platelet Estimate DECR
[2021-08-28] MEDS: LACTULOSE 20 GM/30 ML UCUP PO SCH (09:50)
[2021-08-28] MEDS: AMLODIPINE 10 MG TAB PO SCH (09:51)
[2021-08-28] MEDS: PANTOPRAZOLE 40MG TABLET PO SCH (09:51)
[2021-08-28] MEDS: VITAMIN D 5,000 UNIT CAP PO SCH (09:51)
--- NOTE | 2021-08-28 09:51 | PN ---
Date of Progress Note: 08/28/2021 Subjective: The patient is alert, awake and comfortable. She states she feels a whole lot better ev en compared to yesterday she feels significantly better. She tolerated the hemodialysis treatment ye sterday well with the right IJ catheter that has just been placed. Her abdomen is now soft. She is not having any discomfort. She is afebrile. Her WBC counts are normal. She is eating and drinking much better today and yesterday. She states that she has no nausea, vomiting, has been more energeti c and is feeling close to her baseline. Objective: Vital Signs: Her vitals are stable. Blood pressure 132/70, pulse is 69, respirations ar ound 16-18, on my exam are about 14, temperature afebrile 97.1 Fahrenheit, O2 sats are about 94% on r oom air. Lungs: Clear anteriorly. Abdomen: Soft. Wounds from recent surgery with removal of peritoneal catheter, look well healing. There is no active bleeding. Extremities: Reveal no edema. HEART: Sounds are regular. Laboratory Data: Reviewed, labs show WBC count of 6.0, hemoglobin is stable at 6.8, yesterday was 6. 7, before that was 7.1; hematocrit 20.7, platelet count of 143. Chemistry shows sodium 137, potassiu m 3.3, chloride is 99, bicarb is 25, BUN is 59, creatinine is 8.8. Microbiology reviewed patient's c ulture and sensitivity from the wound and abdomen and from the peritoneal wound fluid are growing gra m-negative rods. Assessment And Plan: The patient with peritonitis, end-stage renal disease, status post peritoneal d ialysis, now on hemodialysis. Has IJ catheter on the left side, working well. Anemia with history o f low blood counts and low platelet. Patient tolerating WILLIAM like Aranesp and Retacrit. She tolerate s that well and responds well to it. Does not want blood transfusions due to her Jehovah Witness bel ief and it is clear she understands risks and benefits, has good insight and has been clear that she does not want blood, but will take medications like Retacrit, Aranesp and darbepoetin as needed for h er improvement in her blood counts. She is currently wanting to stay on hemodialysis, clinically has much improved. Has pending dialysis placement chair time. Plan: 1.Dialysis tomorrow with hemodialysis using left IJ. Orders are placed and communicated with the zelalem nurse.. 2.Disposition. Plan to discharge post dialysis with chair time at [facility] were the patient is getting peritoneal dialysis before, will now get hemodialysis. The patient is otherwise clinically stable for discharge. 3.Peritonitis, significantly improved. PD catheter is removed. The patient is afebrile. White blo od cell counts are normal. She is eating and drinking. Abdominal pain is resolved. Gram-negative r ods and wound culture. Would recommend continuing Levaquin 250 mg p.o. every other day for 2 more we eks on discharge. 4.Hypokalemia. Patient's potassium is slightly on the lower side, but had dialysis yesterday and gabriel d not been eating and drinking well, now that she is eating and drinking well. I suspect this will c ome up to normal. We will keep the dialysis about 2K. If potassium continues to stay low in the fut ure, we will consider adjusting that. 5.Volume status. The patient close to euvolemic at this point. She is improving her diet. Her blo od pressure is stable. We will plan to dialyze with 2 L of ultrafiltration as tolerated tomorrow. /BILL Voice ID: [id number] Report ID: [id number]
[2021-08-28] MEDS: CALCITROL 0.25 MCG CAP PO SCH (09:54)
[2021-08-28] MEDS: carvediloL 25 MG TAB PO SCH ×2 (09:54→20:06)
[2021-08-28] MEDS: Levofloxacin 250mg IV 250 MG/50 ML BAG IV SCH (09:55)
--- NOTE | 2021-08-28 10:24 | P.PN ---
Subjective Date of Service: 08/28/21 Primary Care Provider: Dr. Herndon Chief Complaint: Peritonitis Today she is doing well, no issues over night, eating breakfast, no CP or SOB, no abd pain, no fever or chills, no family at bedside Physical Examination - Vital Signs Temperature: 97.1 F Blood Pressure: 132/70 Pulse: 502 Respirations: 18 Pulse Ox (%): 91 - Studies Microbiology Data (last 24 hrs): 08/25/21 02:00 Blood - Blood Blood Culture Gram Stain - Final Assessment & Plan Physician Review Additional Text: COVID: negative CT scan: CT abdomen pelvis without contrast demonstrates small free fluid in the lower abdomen and pelvis with mesenteric stranding which could be related to peritoneal dialysis use although underlying peritoneal infection not completely excluded. Incomplete imaging of small bilateral pleural effusion, anterior abdominal inflammatory changes around the catheter on the left suspicious for infection, 2 cm right middle lobe pulmonary nodule recommend prompt noncontrast CT chest for further evaluation. Physical exam: General: Alert, In no apparent distress, Oriented x3 HEENT: Neck supple , PEERLA oral mucous moist Respiratory: Clear to auscultation bilaterally, Normal air movement Cardiovascular: Regular rate/rhythm, Normal S1 S2 Gastrointestinal: no abd tenderness, NO HSM, + BS Peritoneal dialysis in place. No cellulitis noted Integumentary: No rashes Neurological: Normal speech, Normal strength at 5/5 x4 extr, Normal tone, Normal affect Impression: Abdominal pain suspect peritonitis complicated with peritoneal dialysis catheter ESRD on PD Diabetes mellitus type 2diet controlled Hypertension Abnormal CT chest 2 cm right middle lobe pulmonary nodule COPD History of ITP Anemia of chronic disease Plan: Abdominal pain suspect peritonitis complicated with peritoneal dialysis catheter: Patient reports feeling better after HD yesterday, no chair yet so she will not be DC most likely till tuesday cont Levaquin 250 mg QOD for a 2 wks. 1 dose of vancomycin was also provided upon admission ESRD on HD now . HD in AM , no chair, pt will not be DC today Diabetes mellitus type 2diet controlled: , borderline , HGB A1c7 most likley pt need oral meds as outpt, Continue Accu- Cheks and sliding scale. Will monitor closely. Hypertension: well controlled today ,cont Norvasc 10 mg daily, carvedilol 25 mg 1 pill twice daily, and Cardura [address] chest 2 cm right middle lobe pulmonary nodule: Patient is seen by pulmonology as an outpatient. Recommend follow-up with pulmonology as an outpatient , pt will need CT guided bx to r/o malignancy , due to holiday, that is not possible inpt COPD: Continue with her medication from home History of ITP: Platelets at 143 today . off Zosyn Anemia of chronic disease: Stable HGB 6.8, on Epo pt refuse transfusion since she is J witness. We will monitor this closely. DVT PPX: SCD, encouarge ambulation Code status: Full code Discharge Plan: Home at discharge
[2021-08-28] MEDS: SEVELAMER CARBONATE 800 MG PO SCH ×3 (12:00→20:07)
[2021-08-29 07:23] LABS: Absolute Lymphocytes (CBC) 0.7 K/uL (0.7-4.9); Basophils % 0.5 % (0-1.3); Lymphocytes % 12.5 % (15.3-44.8); RBC Red Blood Cell Count 2.03 M/uL (3.86-4.86)
[2021-08-29] MEDS: INSULIN -REGULAR HUMAN 50 UNIT/0.5 ML ML SQ SCH ×4 (07:30→21:00)
[2021-08-29 07:35] LABS: Hematocrit 19.4 % (36.0-45.0)
[2021-08-29] MEDS ORDERED: DOXAZOSIN 2 MG TAB ONE (07:52)
[2021-08-29 07:55] LABS: AST/SGOT 12 U/L (15-37); Albumin 1.9 g/dL (3.4-5.0); Alkaline Phosphatase 86 U/L (45-117); BUN Blood Urea Nitrogen 75 mg/dL (7-18); Bicarbonate 24 mmol/L (21-32); Bilirubin Total 0.4 mg/dL (0.2-1.0); Glucose Level 139 mg/dL (74-106); Magnesium 3.2 mg/dL (1.8-2.4); Potassium 3.7 mmol/L (3.5-5.1); Protein, Total 5.8 g/dL (6.4-8.2); Sodium Level 139 mmol/L (136-145)
[2021-08-29 08:01] LABS: ALT/SGPT < 6 U/L (12-78)
[2021-08-29] MEDS: carvediloL 25 MG TAB PO SCH ×2 (08:47→23:55)
[2021-08-29] MEDS: AMLODIPINE 10 MG TAB PO SCH (08:47)
[2021-08-29] MEDS: CALCITROL 0.25 MCG CAP PO SCH (08:47)
[2021-08-29] MEDS: PANTOPRAZOLE 40MG TABLET PO SCH (08:47)
[2021-08-29] MEDS: CALCIUM ACETATE 667 MG TAB PO SCH ×3 (08:47→16:42)
[2021-08-29] MEDS: Levofloxacin 250mg IV 250 MG/50 ML BAG IV SCH (08:48)
[2021-08-29] MEDS: VITAMIN D 5,000 UNIT CAP PO SCH (08:48)
[2021-08-29] MEDS: HOME MED 1 EA UNK (Fluticasone/Umeclidin/Vilanter [Trelegy Ellipta 200-62.5-25] Blst.W.Dev IH SCH (08:49)
[2021-08-29] MEDS: SEVELAMER CARBONATE 800 MG PO SCH ×4 (08:49→21:00)
[2021-08-29] MEDS: DOXAZOSIN 4 MG TAB PO SCH (08:50)
--- NOTE | 2021-08-29 10:33 | PN ---
Date of Progress Note: 08/29/2021 Subjective: The patient is alert, awake, and comfortable. Has some mild abdominal discomfort, but t hat overall is improving. She is able to tolerate p.o. intake. No nausea, no vomiting. Physical Examination: Vital Signs: Blood pressures are stable in 120 and 130 range, for the top number systolic 131, diast olic 59 on last blood pressure check. Pulse is about 60-65 and regular, respirations around 14-18, a nd comfortable. Temperature is afebrile. Pulse ox is 95% to 97% on room air. Lungs: Clear to auscultation. Abdomen: Soft. Extremities: Reveal no edema. Heart: Sounds are regular. Laboratory Data: Reviewed. The patient's labs show hemoglobin 6.4, that is relatively stable compar ed to yesterday when was 6.8, the day before, 6.7; hematocrit is 19.4; WBC count is 5.9; platelet cou nt is 112. Chemistries, sodium 139, potassium 3.7, chloride 100, bicarb is 24, BUN is 75, creatinine 9.71, calcium level 8.4. Assessment And Plan: The patient overall doing quite well. Awaiting discharge to the dialysis unit once her chair time is ascertained. The patient is aware of that. She is scheduled to get dialysis today. Volume status is good. Hyperkalemia, not an issue. Hyponatremia, not an issue. Metabolic a cidosis is not an issue. The patient with good volume status correcting well with PD catheter out an d on antibiotics. Will likely benefit from Levaquin 250 mg p.o. every other day for 2 more weeks, ge tting a dose of Levaquin now. Anemia quite severe, the patient understands the risks of not taking b lood transfusion. She has refused transfusions, however, is agreeable to getting Retacrit. Retacrit 10,000 units subcu ord ered again for today. /BILL Voice ID: [id number] Report ID: [id number]
--- NOTE | 2021-08-29 10:53 | P.PN ---
Subjective Date of Service: 08/29/21 Primary Care Provider: Dr. Herndon Chief Complaint: Peritonitis Today she is doing well, no issues over night, she is hoping to leave today after HD no CP or SOB, no abd pain, no fever or chills, no family at bedside Physical Examination - Vital Signs Temperature: 96.9 F Blood Pressure: 131/59 Pulse: 62 Respirations: 18 Pulse Ox (%): 95 - Studies Microbiology Data (last 24 hrs): 08/25/21 02:00 Blood - Blood Blood Culture Gram Stain - Final Assessment & Plan Physician Review Additional Text: COVID: negative CT scan: CT abdomen pelvis without contrast demonstrates small free fluid in the lower abdomen and pelvis with mesenteric stranding which could be related to peritoneal dialysis use although underlying peritoneal infection not completely excluded. Incomplete imaging of small bilateral pleural effusion, anterior abdominal inflammatory changes around the catheter on the left suspicious for infection, 2 cm right middle lobe pulmonary nodule recommend prompt noncontrast CT chest for further evaluation. Physical exam: General: Alert, In no apparent distress, Oriented x3 HEENT: Neck supple , PEERLA oral mucous moist Respiratory: Clear to auscultation bilaterally, Normal air movement Cardiovascular: Regular rate/rhythm, Normal S1 S2 Gastrointestinal: no abd tenderness, NO HSM, + BS Peritoneal dialysis in place. No cellulitis noted Integumentary: No rashes Neurological: Normal speech, Normal strength at 5/5 x4 extr, Normal tone, Normal affect Impression: Abdominal pain suspect peritonitis complicated with peritoneal dialysis catheter ESRD on PD Diabetes mellitus type 2diet controlled Hypertension Abnormal CT chest 2 cm right middle lobe pulmonary nodule COPD History of ITP Anemia of chronic disease Plan: Abdominal pain suspect peritonitis complicated with peritoneal dialysis catheter: Patient reports feeling great, want to go home, no chair yet they reqiure CXR to r/o TB as well as Hepatitis panel which still pending cont Levaquin 250 mg QOD for a 2 wks total per nephro. 1 dose of vancomycin was also provided upon admission ESRD on HD now . HD today , no chair, pt will not be DC today Diabetes mellitus type 2diet controlled: , borderline , HGB A1c7 most likley pt need oral meds as outpt, Continue Accu- Cheks and sliding scale. Will monitor closely. Hypertension: well controlled, will cont Norvasc 10 mg daily, carvedilol 25 mg 1 pill twice daily, and Cardura [address] chest 2 cm right middle lobe pulmonary nodule: Patient is seen by pulmonology as an outpatient. Recommend follow-up with pulmonology as an outpatient , pt will need CT guided bx to r/o malignancy , due to holiday, that is not possible inpt COPD: Continue with her medication from home History of ITP: Resolved, Platelets at 112 Anemia of chronic disease: Stable HGB 6.4, on Epo pt refuse transfusion since she is J witness. We will monitor this closely. DVT PPX: SCD, encouarge ambulation Code status: Full code Discharge Plan: Home at discharge when HD chair available
[2021-08-29] MEDS ORDERED: EPOETIN ALFA-EPBX 4,000 UNIT/ML VIAL SQ ONE (11:00)
[2021-08-29] MEDS ORDERED: EPOETIN ALFA-EPBX 10,000 UNIT/ML VIAL SQ ONE (11:00)
--- NOTE | 2021-08-29 14:40 | RAD REPORT ---
EXAM DESCRIPTION: RAD - Chest Single View - 08/29/2021 2:03 pm CLINICAL HISTORY: r/o TB COMPARISON: Chest Single View dated 08/26/2021; Chest Single View dated 08/25/2021; Chest Pa And Lat (2 Views) dated 08/10/2021; Abdomen 1 View (KUB) dated 02/26/2021; Abdomen Pelvis Wo Contrast dated 08/25/2021; Fluoroscopy >1 Hr dated 08/26/2021 FINDINGS: Lines: Left IJ approach dialysis catheter with tip overlying the proximal SVC. Lungs: Edema is present bilaterally. No radiographic evidence of tuberculosis. Pleural: Mild to moderate bilateral pleural effusions. Cardiac: Cardiomegaly. Bones: No acute fractures. Other: IMPRESSION: Developing edema with mild bilateral pleural effusions.
[2021-08-30 04:31] LABS: Absolute Lymphocytes (CBC) 0.8 K/uL (0.7-4.9); Basophils % 0.5 % (0-1.3); Lymphocytes % 14.6 % (15.3-44.8); MPV 9.1 fL (7.6-11.3); RBC Red Blood Cell Count 2.17 M/uL (3.86-4.86)
[2021-08-30 04:40] LABS: Hematocrit 20.7 % (36.0-45.0)
[2021-08-30 04:58] LABS: ALT/SGPT < 6 U/L (12-78); AST/SGOT 11 U/L (15-37); Albumin 1.9 g/dL (3.4-5.0); Alkaline Phosphatase 83 U/L (45-117); BUN Blood Urea Nitrogen 44 mg/dL (7-18); Bicarbonate 27 mmol/L (21-32); Bilirubin Total 0.4 mg/dL (0.2-1.0); Glucose Level 159 mg/dL (74-106); Magnesium 2.5 mg/dL (1.8-2.4); Potassium 3.1 mmol/L (3.5-5.1); Protein, Total 5.8 g/dL (6.4-8.2); Sodium Level 139 mmol/L (136-145)
[2021-08-30] MEDS: INSULIN -REGULAR HUMAN 50 UNIT/0.5 ML ML SQ SCH ×4 (07:30→20:31)
[2021-08-30] MEDS: SEVELAMER CARBONATE 800 MG PO SCH ×4 (08:00→20:31)
[2021-08-30] MEDS: CALCIUM ACETATE 667 MG TAB PO SCH ×3 (08:00→16:43)
[2021-08-30] MEDS: DOXAZOSIN 4 MG TAB PO SCH (09:00)
[2021-08-30] MEDS ORDERED: DOXAZOSIN 2 MG TAB ONE (09:35)
[2021-08-30] MEDS: HYDROCODONE/APAP 5/325 MG TAB PO PRN (09:45)
[2021-08-30] MEDS: AMLODIPINE 10 MG TAB PO SCH (09:47)
[2021-08-30] MEDS: CALCITROL 0.25 MCG CAP PO SCH (09:47)
[2021-08-30] MEDS: carvediloL 25 MG TAB PO SCH ×2 (09:47→21:27)
[2021-08-30] MEDS: PANTOPRAZOLE 40MG TABLET PO SCH (09:47)
[2021-08-30] MEDS: VITAMIN D 5,000 UNIT CAP PO SCH (09:48)
[2021-08-30] MEDS: HOME MED 1 EA UNK (Fluticasone/Umeclidin/Vilanter [Trelegy Ellipta 200-62.5-25] Blst.W.Dev IH SCH (09:48)
--- NOTE | 2021-08-30 09:56 | P.PN ---
Subjective Date of Service: 08/30/21 Primary Care Provider: Dr. Herndon Chief Complaint: Peritonitis Today she is doing well, no issues over night, she is hoping to leave tommorow after HD, no complaints, she is aware of her lung mass and need for Bx, no CP or SOB, no abd pain, no fever or chills, family at bedside Physical Examination - Vital Signs Temperature: 98.1 F Blood Pressure: 150/52 Pulse: 69 Respirations: 18 Pulse Ox (%): 94 - Studies Microbiology Data (last 24 hrs): 08/25/21 02:00 Blood - Blood Blood Culture Gram Stain - Final 08/25/21 02:00 Blood - Blood Anaerobic Blood Culture - Final No growth in 5 days. 08/25/21 01:50 Blood - Blood Aerobic Blood Culture - Final No growth in 5 days. 08/25/21 01:50 Blood - Blood Anaerobic Blood Culture - Final No growth in 5 days. Assessment & Plan Physician Review Additional Text: COVID: negative CT scan: CT abdomen pelvis without contrast demonstrates small free fluid in the lower abdomen and pelvis with mesenteric stranding which could be related to peritoneal dialysis use although underlying peritoneal infection not completely excluded. Incomplete imaging of small bilateral pleural effusion, anterior abdominal inflammatory changes around the catheter on the left suspicious for infection, 2 cm right middle lobe pulmonary nodule recommend prompt noncontrast CT chest for further evaluation. Physical exam: General: Alert, In no apparent distress, Oriented x3, HD catheter in place HEENT: Neck supple , PEERLA oral mucous moist Respiratory: Clear to auscultation bilaterally, Normal air movement Cardiovascular: Regular rate/rhythm, Normal S1 S2 Gastrointestinal: no abd tenderness, NO HSM, + BS No cellulitis noted Integumentary: No rashes Neurological: Normal speech, Normal strength at 5/5 x4 extr, Normal tone, Normal affect Impression: Abdominal pain suspect peritonitis complicated with peritoneal dialysis catheter ESRD on PD Diabetes mellitus type 2diet controlled Hypertension Abnormal CT chest 2 cm right middle lobe pulmonary nodule COPD History of ITP Anemia of chronic disease Plan: Abdominal pain suspect peritonitis complicated with peritoneal dialysis catheter, now on HD Patient reports feeling well want to go home, no chair yet , CXR done yesterady and neg for TB, hepatitis penel pending cont Levaquin 250 mg QOD for a 2 wks total per nephro. 1 dose of vancomycin was also provided upon admission and stopped ESRD on HD now . HD in am pending chair acceptance before DC Diabetes mellitus type 2diet controlled: , borderline , HGB A1c 7 most likley pt need oral meds as outpt, Continue Accu- Cheks and sliding scale. Will monitor closely. Hypertension: well controlled,Cont Norvasc 10 mg daily, carvedilol 25 mg 1 pill twice daily, and Cardura [address] chest 2 cm right middle lobe pulmonary nodule: Patient need to be seen by pulmonology as an outpatient. Recommend follow-up with pulmonology and CT guided bx to r/o malignancy or EBUS and Bx by Pul if possible, , due to holiday, that is not possible inpt COPD: Continue with her medication from home History of ITP: Resolved, Platelets at 101 Anemia of chronic disease: Stable HGB 6.7, on Epo pt refuse transfusion since she is J witness. We will monitor this closely. DVT PPX: SCD, encouarge ambulation Code status: Full code Discharge Plan: Home at discharge when HD chair available
[2021-08-31] MEDS: INSULIN -REGULAR HUMAN 50 UNIT/0.5 ML ML SQ SCH ×3 (07:30→16:30)
[2021-08-31] MEDS: CALCIUM ACETATE 667 MG TAB PO SCH ×3 (08:00→18:00)
--- NOTE | 2021-08-31 08:20 | P.PN ---
Subjective Date of Service: 08/31/21 Primary Care Provider: Dr. Herndon Chief Complaint: Peritonitis Subjective: Improving (Patient feels much better, getting hemodialysis) Physical Examination - Vital Signs Temperature: 97.8 F Blood Pressure: 139/66 Pulse: 65 Respirations: 18 Pulse Ox (%): 90 - Physical Exam General: Alert, In no apparent distress, Cooperative Respiratory: Clear to auscultation bilaterally, Normal air movement Cardiovascular: Regular rate/rhythm Gastrointestinal: Soft and benign, No tenderness, No masses, No rebound, No guarding, Other (incisions healing well with sutures, wound packed well) Integumentary: Other - Studies Microbiology Data (last 24 hrs): 08/25/21 02:00 Blood - Blood Aerobic Blood Culture - Final 08/25/21 02:00 Blood - Blood Blood Culture Gram Stain - Final 08/25/21 02:00 Blood - Blood Anaerobic Blood Culture - Final No growth in 5 days. Assessment And Plan Physician Review Additional Text: COVID: negative CT scan: CT abdomen pelvis without contrast demonstrates small free fluid in the lower abdomen and pelvis with mesenteric stranding which could be related to peritoneal dialysis use although underlying peritoneal infection not completely excluded. Incomplete imaging of small bilateral pleural effusion, anterior abdominal inflammatory changes around the catheter on the left suspicious for infection, 2 cm right middle lobe pulmonary nodule recommend prompt noncontrast CT chest for further evaluation. Physical exam: General: Alert, In no apparent distress, Oriented x3, HD catheter in place HEENT: Neck supple , PEERLA oral mucous moist Respiratory: Clear to auscultation bilaterally, Normal air movement Cardiovascular: Regular rate/rhythm, Normal S1 S2 Gastrointestinal: no abd tenderness, NO HSM, + BS No cellulitis noted Integumentary: No rashes Neurological: Normal speech, Normal strength at 5/5 x4 extr, Normal tone, Normal affect Impression: Abdominal pain suspect peritonitis complicated with peritoneal dialysis catheter ESRD on PD Diabetes mellitus type 2diet controlled Hypertension Abnormal CT chest 2 cm right middle lobe pulmonary nodule COPD History of ITP Anemia of chronic disease Plan: Abdominal pain suspect peritonitis complicated with peritoneal dialysis catheter, now on HD Patient reports feeling well want to go home, no chair yet , CXR done yesterady and neg for TB, hepatitis penel pending cont Levaquin 250 mg QOD for a 2 wks total per nephro. 1 dose of vancomycin was also provided upon admission and stopped ESRD on HD now . HD in am pending chair acceptance before DC Diabetes mellitus type 2diet controlled: , borderline , HGB A1c 7 most likley pt need oral meds as outpt, Continue Accu- Cheks and sliding scale. Will monitor closely. Hypertension: well controlled,Cont Norvasc 10 mg daily, carvedilol 25 mg 1 pill twice daily, and Cardura [address] chest 2 cm right middle lobe pulmonary nodule: Patient need to be seen by pulmonology as an outpatient. Recommend follow-up with pulmonology and CT guided bx to r/o malignancy or EBUS and Bx by Pul if possible, , due to holiday, that is not possible inpt COPD: Continue with her medication from home History of ITP: Resolved, Platelets at 101 Anemia of chronic disease: Stable HGB 6.7, on Epo pt refuse transfusion since she is J witness. We will monitor this closely. DVT PPX: SCD, encouarge ambulation Code status: Full code Discharge Plan: Home at discharge when HD chair available
[2021-08-31] MEDS: SEVELAMER CARBONATE 800 MG PO SCH ×3 (09:37→17:00)
[2021-08-31] MEDS: DOXAZOSIN 4 MG TAB PO SCH (09:37)
[2021-08-31] MEDS: HOME MED 1 EA UNK (Fluticasone/Umeclidin/Vilanter [Trelegy Ellipta 200-62.5-25] Blst.W.Dev IH SCH (09:37)
[2021-08-31] MEDS: AMLODIPINE 10 MG TAB PO SCH (09:38)
[2021-08-31] MEDS: PANTOPRAZOLE 40MG TABLET PO SCH (09:38)
[2021-08-31] MEDS: VITAMIN D 5,000 UNIT CAP PO SCH (09:38)
[2021-08-31] MEDS: CALCITROL 0.25 MCG CAP PO SCH (09:38)
[2021-08-31] MEDS: carvediloL 25 MG TAB PO SCH (09:39)
[2021-08-31 11:58] VITALS: TEMP 97.6
[2021-08-31 18:01] VITALS: BP 137/65
[2021-08-31 18:39] VITALS: O2SAT 92
[2021-08-31] MEDS ORDERED: INFLUENZA VACCINE (for 6+ mo) 0.5 ML DOSE IMVAC ONE (19:00)
[2021-08-31 19:29] LABS: HBsAG Nonreactive (Nonreactive)
--- NOTE | 2021-09-01 19:25 | P.PN ---
Date of Service: 08/31/21 Vital Signs Temp Pulse Resp BP Pulse Ox 97.6 F 65 16 137/65 92 08/31/21 16:00 08/31/21 16:00 08/31/21 16:00 08/31/21 16:00 08/31/21 16:00 Microbiology Results 08/25/21 02:00 Blood - Blood Aerobic Blood Culture - Final 08/25/21 02:00 Blood - Blood Blood Culture Gram Stain - Final 08/25/21 02:00 Blood - Blood Anaerobic Blood Culture - Final No growth in 5 days. 08/25/21 01:50 Blood - Blood Aerobic Blood Culture - Final No growth in 5 days. 08/25/21 01:50 Blood - Blood Anaerobic Blood Culture - Final No growth in 5 days. Assessment/ Plan: Nephrology No dyspnea No chest pain No acute events overnight Vitals, medications, blood work and imaging reviewed in the chart NAD. NCAT. MMM. Neck supple. Normal respiratory effort. RRR. ND Abd. No C/C/E. No rash. AAO. Normal speech. A/P Continue the current POC and Medications other than the changes listed below. AM labs as ordered. Daily weight. ESRD -PD cath removed -HD initiated HTN with CKD/ CHF -Continue Coreg Diastolic CHF, chronic -Low sodium diet -Continue Lasix DM II with CKD -RISS Anemia in CKD -Retacrit prn CKD MBD -Continue Renvela
== END 2021-08-31 18:40 | disposition home or self-care (01) | DRG 919 ==
LOC: ER 00:26 → ERHOLD 04:58 → 4TH 10:20 → 2ND 08-27 16:29
PROVIDERS: ADMIT Family Medicine; ATTEND Hospitalist
PROC: B5181ZA Fluoroscopy of Superior Vena Cava using Low Osmolar Contrast, Guidance (ICD-10-PCS; 2021-08-26)
PROC: 3E1M48Z Irrigation of Peritoneal Cavity using Irrigating Substance, Percutaneous Endoscopic Approach (ICD-10-PCS; 2021-08-26)
PROC: 0JH63XZ Insertion of Tunneled Vascular Access Device into Chest Subcutaneous Tissue and Fascia, Percutaneous Approach (ICD-10-PCS; principal; 2021-08-26 13:45)
PROC: 02HV33Z Insertion of Infusion Device into Superior Vena Cava, Percutaneous Approach (ICD-10-PCS; 2021-08-26 13:45)
PROC: 5A1D70Z Performance of Urinary Filtration, Intermittent, Less than 6 Hours Per Day (ICD-10-PCS; 2021-08-27)
DX: T85.71XA Infection and inflammatory reaction due to peritoneal dialysis catheter, initial encounter (principal); N18.6 End stage renal disease; K65.8 Other peritonitis; I13.2 Hypertensive heart and chronic kidney disease with heart failure and with stage 5 chronic kidney disease, or end stage renal disease; E87.2 Acidosis; I50.32 Chronic diastolic (congestive) heart failure; T85.611A Breakdown (mechanical) of intraperitoneal dialysis catheter, initial encounter; J44.9 Chronic obstructive pulmonary disease, unspecified; E83.51 Hypocalcemia; E11.22 Type 2 diabetes mellitus with diabetic chronic kidney disease; D63.1 Anemia in chronic kidney disease; D72.825 Bandemia; E88.9 Metabolic disorder, unspecified; E87.6 Hypokalemia; D63.8 Anemia in other chronic diseases classified elsewhere; E87.70 Fluid overload, unspecified; R91.8 Other nonspecific abnormal finding of lung field; Z88.1 Allergy status to other antibiotic agents; Z88.8 Allergy status to other drugs, medicaments and biological substances; Z99.2 Dependence on renal dialysis; Z90.710 Acquired absence of both cervix and uterus; Z89.422 Acquired absence of other left toe(s); Z56.0 Unemployment, unspecified; Z23 Encounter for immunization; Z53.1 Procedure and treatment not carried out because of patient's decision for reasons of belief and group pressure; Z20.822 Contact with and (suspected) exposure to COVID-19
CPT/HCPCS: 36415; 71045; 74176; 80048; 80053; 80061; 80076; 82947; 83036; 83605; 83690; 83735; 83880; 84145; 84439; 84443; 84484; 85014; 85018; 85025; 85610; 85652; 86140; 86317; 86704; 86706; 86803; 87040; 87070; 87075; 87077; 87186; 87205; 87340; 88300; 90471; 90935; 93005; 99284; C1752; J0690; J0744; J1100; J1644; J1940; J2270; J2370; J2405; J2543; J2704; J3010; J3370; J7030; J7040; J7050; Q2035; Q5106; U0003

== ENCOUNTER 2022-04-19 09:15 | Day surgery (SDC) | payer OTHER ==
[2022-04-19 09:59] LABS: MPV 8.1 fL (7.6-11.3)
[2022-04-19 10:03] LABS: Protime INR 1.07
[2022-04-19 11:06] VITALS: BMI 28.8
--- NOTE | 2022-04-19 12:07 | RAD REPORT ---
EXAM DESCRIPTION: US - Thoracentesis w/ US Guide - 04/19/2022 11:19 am CLINICAL HISTORY: PLEURAL EFFUSION COMPARISON: Chest Pa And Lat (2 Views) dated 04/14/2022 TECHNIQUE: Patient presents from day surgery for ultrasound-guided left-sided thoracentesis. Prior i maging showed moderately large left-sided pleural effusion. The thoracentesis procedure, risks and alternatives were discussed with the patient in detail. After answering all questions both oral and written consent were obtained. Patient had no contraindicated a llergy or medication history. Preliminary imaging identified moderately large left-sided pleural effusion. Skin access site was pelon ected. The skin was prepped and draped in the usual sterile fashion. Skin and deeper tissues down to the pleura was anesthetized with 1% lidocaine. Under sonographic guidance a thoracentesis catheter wa s advanced into the pleural cavity. Approximately 15 mL of pleural fluid was retained for laboratory studies. The pleural fluid samples w ere delivered to the hospital lab. Referring physician's office was contacted. A office personnel jitendra dy would contact the referring physician for requested studies. Approximately 1 liter of pleural fluid was removed. At the end of the procedure the catheter was shruthi ladonna. Sterile bandage was placed at the puncture site. Patient was transferred back to the same day luke rgical area for postprocedure monitoring. The 3 hour postprocedure chest film was still pending at th e time of this dictation. IMPRESSION: Ultrasound-guided left-sided thoracentesis was performed as detailed.
--- NOTE | 2022-04-19 14:20 | RAD REPORT ---
EXAM DESCRIPTION: RAD - Chest Single View - 04/19/2022 2:05 pm CLINICAL HISTORY: Thoracentesis IMPRESSION: A pneumothorax is not visualized status post thoracentesis
[2022-04-19 14:53] LABS: Body Fluid WBC 112 /mm^3
[2022-04-19 15:19] VITALS: BP 164/50; TEMP 97.7; O2SAT 96
[2022-04-19 16:59] LABS: Appearance SLT. TURBID (CLEAR); Body Fluid Source PLEURAL; Color of fluid Orange (COLORLESS)
[2022-04-21 21:16] LABS: LD, PLEURAL FLUID 106 U/L
== END 2022-04-19 15:00 | disposition home or self-care (01) ==
LOC: DS 09:15
PROVIDERS: ATTEND Internal Medicine Sleep Medicine
DX: J90 Pleural effusion, not elsewhere classified (principal)
CPT/HCPCS: 32554; 32555; 36415; 71045; 82945; 83615; 85049; 85610; 85730; 87015; 87070; 87116; 87206; 89050